=== PATIENT | male | born 1940 | race African-American/Black ===

== ENCOUNTER 2017-07-09 14:40 | Observation (INO) | payer MEDICARE ==
[~2017-07-09] VITALS: Ht 188 cm; Wt 101.2 kg
--- OUTSIDE RECORDS SUMMARY | 2017-07-09 14:43 | XMS REPORT ---
Author Author [facility] Address Unknown Phone Unavailable Care Team Providers Care Restaurant Team Member Name Role Phone OSBALDO NAM Unavailable Unavailable MARY BETHLUCI WILCOX Unavailable Unavailable Problems This patient has no known problems. Allergies, Adverse Reactions, Alerts This patient has no known allergies or adverse reactions. Medications This patient has no known medications. Results Test Description Test Time Test Comments Text Results Atomic Results Result Comments POCT-GLUCOSE METER 2017-04-27 16:40:00 POC-GLUCOSE METER (BEAKER) (test uuvv=8779) 208 mg/dL 70-110 TESTED AT [address] [address] POCT-GLUCOSE [id number] 13:04:00* Test Item Value Reference Range Comments POC-GLUCOSE METER (BEAKER) (test yllb=1262) 120 mg/dL 70-110 TESTED AT [address] [address] BASIC METABOLIC [id number] 11:31:00* Test Item Value Reference Range Comments SODIUM (BEAKER) (test yasp=455) 145 meq/L 136-145 POTASSIUM (BEAKER) (test jmor=400) 3.8 meq/L 3.5-5.1 CHLORIDE (BEAKER) (test gcrv=598) 116 meq/L 98-107 CO2 (BEAKER) (test tufp=446) 22 meq/L 22-29 BLOOD UREA NITROGEN (BEAKER) (test qlly=493) 45 mg/dL 7-21 CREATININE (BEAKER) (test yces=885) 1.54 mg/dL 0.57-1.25 GLUCOSE RANDOM (BEAKER) (test hrsi=285) 71 mg/dL 70-105 CALCIUM (BEAKER) (test twel=200) 8.4 mg/dL 8.4-10.2 EGFR (BEAKER) (test wyhq=8393) 53 mL/min/1.73 sq m ESTIMATED GFR IS NOT ACCURATE CREATININE CLEARANCE IN PREDICTING GLOMERULAR FILTRATION RATE. ESTIMATED GFR IS NOT APPLICABLE FOR DIALYSIS PATIENTS. RAD, CHEST, 1 VIEW, NON [id number] 10:19:00Reason for exam:->evaluate status of pleural effusionsShould this be performed at the bedside?->YesFINAL REPORT CHEST ONE VIEW HISTORY: Pleural effusions COMPARISON: 04/26/2017 FINDINGS: Single portable AP examination of the chest was performed. There is unchanged left lower lobe airspace consolidation, partial obscuring the left diaphragm, suggestive of atelectasis or pneumonia. A minimal left pleural effusion is suspected. No right pleural effusion. Right lung clear. No pneumothorax. The cardiac shadow is borderline enlarged, unchanged. Signed: Ian Lopes MDReport Verified Date/Time: 04/27/2017 10:19:00 Reading Location: [address] Ortho Consult Reading Room -GLUCOSE [id number] 09:09:00 * Test Item Value Reference Range Comments POC-GLUCOSE METER (BEAKER) (test njgt=0799) 250 mg/dL 70-110 TESTED AT [address] [address] POCT-GLUCOSE [id number] 08:30:00* Test Item Value Reference Range Comments POC-GLUCOSE METER (BEAKER) (test yigy=3327) 51 mg/dL 70-110 TESTED AT [address] [address] B-TYPE NATRIURETIC FACTOR (BNP)2017-04-27 07:08:00* Test Item Value Reference Range Comments B-TYPE NATRIURETIC PEPTIDE (BEAKER) (test hnkm=005) 200 pg/mL 0-100 CBC W/PLT COUNT & AUTO [id number] 06:51:00* Test Item Value Reference Range Comments WHITE BLOOD CELL COUNT (BEAKER) (test txaa=487) 7.1 K/ L 3.5-10.5 RED BLOOD CELL COUNT (BEAKER) (test nfmz=820) 2.77 M/ L 4.63-6.08 HEMOGLOBIN (BEAKER) (test pxzu=559) 9.0 GM/DL 13.7-17.5 HEMATOCRIT (BEAKER) (test jdvm=156) 27.5 % 40.1-51.0 MEAN CORPUSCULAR VOLUME (BEAKER) (test dkoj=853) 99.3 fL 79.0-92.2 MEAN CORPUSCULAR HEMOGLOBIN (BEAKER) (test mepy=213) 32.5 pg 25.7-32.2 MEAN CORPUSCULAR HEMOGLOBIN CONC (BEAKER) (test imzv=655) 32.7 GM/DL 32.3- 36.5 RED CELL DISTRIBUTION WIDTH (BEAKER) (test nmdt=470) 13.2 % 11.6-14.4 PLATELET COUNT (BEAKER) (test qycd=366) 202 K/CU MM 150-450 MEAN PLATELET VOLUME (BEAKER) (test zgts=103) 11.5 fL 9.4-12.4 NUCLEATED RED BLOOD CELLS (BEAKER) (test skmp=240) 0 /100 WBC 0-0 NEUTROPHILS RELATIVE PERCENT (BEAKER) (test bkam=151) 52 % LYMPHOCYTES RELATIVE PERCENT (BEAKER) (test gjki=758) 25 % MONOCYTES RELATIVE PERCENT (BEAKER) (test bohn=061) 21 % EOSINOPHILS RELATIVE PERCENT (BEAKER) (test nuxn=657) 1 % BASOPHILS RELATIVE PERCENT (BEAKER) (test xhzu=174) 0 % NEUTROPHILS ABSOLUTE COUNT (BEAKER) (test ntcb=200) 3.68 K/ L 1.78-5.38 LYMPHOCYTES ABSOLUTE COUNT (BEAKER) (test jxbg=381) 1.76 K/ L 1.32-3.57 MONOCYTES ABSOLUTE COUNT (BEAKER) (test vtme=208) 1.47 K/ L 0.30-0.82 EOSINOPHILS ABSOLUTE COUNT (BEAKER) (test emdd=575) 0.09 K/ L 0.04-0.54 BASOPHILS ABSOLUTE COUNT (BEAKER) (test sofo=691) 0.01 K/ L 0.01-0.08 IMMATURE GRANULOCYTES-RELATIVE PERCENT (BEAKER) (test xexa=5013) 1 % 0-1 POCT-GLUCOSE [id number] 20:47:00* Test Item Value Reference Range Comments POC-GLUCOSE METER (BEAKER) (test obly=7261) 155 mg/dL 70-110 TESTED AT [address] [address] POCT-GLUCOSE [id number] 17:16:00* Test Item Value Reference Range Comments POC-GLUCOSE METER (BEAKER) (test urvl=6749) 204 mg/dL 70-110 TESTED AT [address] [address] POCT-GLUCOSE [id number] 13:49:00* Test Item Value Reference Range Comments POC-GLUCOSE METER (BEAKER) (test uxjt=1043) 122 mg/dL 70-110 TESTED AT [facility] [address] [facility] [address] POCT-GLUCOSE [id number] 08:48:00* Test Item Value Reference Range Comments POC-GLUCOSE METER (BEAKER) (test mxbw=5388) 77 mg/dL 70-110 TESTED AT [place] [id number] [facility] [address] RAD, CHEST, 1 VIEW, NON [id number] 07:59:00Reason for exam:->chfFINAL REPORT Portable chest. MEDICAL HISTORY: CHF. COMPARISON STUDY: April 24, 2017. FINDINGS: The cardiac silhouette is enlarged. There is atelectasis or consolidation in the lung bases with blunting of the costophrenic angles. The remaining pulmonary parenchyma is clear. No pneumothorax is seen. Degenerative changes are noted. IMPRESSION: Findings most likely related to CHF, similar to previous. Signed: Jose De Jesus Pineda MDReport Verified Date/Time: 04/26/2017 07:59:00 Reading Location: [address] Body Reading Room [id number] 07:26:00* Test Item Value Reference Range Comments MAGNESIUM (BEAKER) (test sovw=419) 2.2 mg/dL 1.6-2.6 Specimen slightly hemolyzed BASIC METABOLIC [id number] 07:26:00* Test Item Value Reference Range Comments SODIUM (BEAKER) (test wsds=799) 142 meq/L 136-145 POTASSIUM (BEAKER) (test iknf=981) 4.0 meq/L 3.5-5.1 Specimen slightly hemolyzed CHLORIDE (BEAKER) (test ztbj=443) 116 meq/L 98-107 CO2 (BEAKER) (test azgu=429) 17 meq/L 22-29 BLOOD UREA NITROGEN (BEAKER) (test ubpv=024) 46 mg/dL 7-21 CREATININE (BEAKER) (test quva=916) 1.52 mg/dL 0.57-1.25 Specimen slightly hemolyzed GLUCOSE RANDOM (BEAKER) (test tcay=286) 112 mg/dL 70-105 CALCIUM (BEAKER) (test fqhc=006) 8.0 mg/dL 8.4-10.2 EGFR (BEAKER) (test qkeq=4291) 54 mL/min/1.73 sq m ESTIMATED GFR IS NOT ACCURATE CREATININE CLEARANCE IN PREDICTING GLOMERULAR FILTRATION RATE. ESTIMATED GFR IS NOT APPLICABLE FOR DIALYSIS PATIENTS. POCT-GLUCOSE [id number] 22:11:00* Test Item Value Reference Range Comments POC-GLUCOSE METER (BEAKER) (test ugzm=8149) 264 mg/dL 70-110 TESTED AT [address] [address] POCT-GLUCOSE [id number] 18:04:00* Test Item Value Reference Range Comments POC-GLUCOSE METER (BEAKER) (test ystj=3609) 317 mg/dL 70-110 TESTED AT [address] [address] POCT-GLUCOSE [id number] 17:11:00* Test Item Value Reference Range Comments POC-GLUCOSE METER (BEAKER) (test rbwo=9137) 303 mg/dL 70-110 TESTED AT [address] [address] POCT-GLUCOSE [id number] 12:27:00* Test Item Value Reference Range Comments POC-GLUCOSE METER (BEAKER) (test zlvv=9529) 106 mg/dL 70-110 TESTED AT [address] [address] POCT-GLUCOSE [id number] 08:04:00* Test Item Value Reference Range Comments POC-GLUCOSE METER (BEAKER) (test mduu=4982) 54 mg/dL 70-110 TESTED AT [address] [address] [id number] 06:51:00* Test Item Value Reference Range Comments MAGNESIUM (BEAKER) (test fqsq=550) 2.4 mg/dL 1.6-2.6 BASIC METABOLIC [id number] 06:51:00* Test Item Value Reference Range Comments SODIUM (BEAKER) (test eudz=134) 141 meq/L 136-145 POTASSIUM (BEAKER) (test bsbv=044) 3.9 meq/L 3.5-5.1 CHLORIDE (BEAKER) (test xzxc=760) 115 meq/L 98-107 CO2 (BEAKER) (test afhz=323) 17 meq/L 22-29 BLOOD UREA NITROGEN (BEAKER) (test jmvq=293) 50 mg/dL 7-21 CREATININE (BEAKER) (test mycp=141) 1.48 mg/dL 0.57-1.25 GLUCOSE RANDOM (BEAKER) (test ascz=806) 99 mg/dL 70-105 CALCIUM (BEAKER) (test rvbt=372) 8.0 mg/dL 8.4-10.2 EGFR (BEAKER) (test jzda=4890) 56 mL/min/1.73 sq m ESTIMATED GFR IS NOT ACCURATE CREATININE CLEARANCE IN PREDICTING GLOMERULAR FILTRATION RATE. ESTIMATED GFR IS NOT APPLICABLE FOR DIALYSIS PATIENTS. POCT-GLUCOSE [id number] 23:14:00* Test Item Value Reference Range Comments POC-GLUCOSE METER (BEAKER) (test suym=8967) 295 mg/dL 70-110 TESTED AT [address] [address] POCT-GLUCOSE [id number] 18:38:00* Test Item Value Reference Range Comments POC-GLUCOSE METER (BEAKER) (test qylf=4543) 284 mg/dL 70-110 TESTED AT [place] [id number] [facility] [address] POCT-GLUCOSE [id number] 17:22:00* Test Item Value Reference Range Comments POC-GLUCOSE METER (BEAKER) (test ogmv=0405) 309 mg/dL 70-110 TESTED AT [place] [id number] [facility] [address] POCT-GLUCOSE [id number] 12:20:00* Test Item Value Reference Range Comments POC-GLUCOSE METER (BEAKER) (test rixo=9832) 119 mg/dL 70-110 TESTED AT [address] [address] POCT-GLUCOSE [id number] 12:20:00* Test Item Value Reference Range Comments POC-GLUCOSE METER (BEAKER) (test wgjs=8511) 108 mg/dL 70-110 TESTED AT [address] [address] RAD, CHEST, 1 VIEW, NON [id number] 08:48:00Reason for exam:->pna, chfFINAL REPORT Chest one view compared to April 21, 2017 Discussion: There is bilateral interstitial prominence with hazy opacities obscuring the left hemidiaphragm unchanged. Hazy opacity now partially obscures the right hemidiaphragm as well, a new finding. Atelectasis is probable but pneumonia could have this appearance. No effusion or pneumothorax. IMPRESSIONS: Overall chest appearance is similar but new hazy opacity is present partially obscuring right hemidiaphragm. Signed: Daniel Alejo Verified Date/Time : 04/24/2017 08:48:06 Reading Location: [facility] Radiology Reading Room - GLUCOSE [id number] 08:34:00* Test Item Value Reference Range Comments POC-GLUCOSE METER (BEAKER) (test oyko=9067) 52 mg/dL 70-110 TESTED AT [facility] [address] [facility] [address] [id number] 06:03:00* Test Item Value Reference Range Comments MAGNESIUM (BEAKER) (test jjlp=145) 2.5 mg/dL 1.6-2.6 BASIC METABOLIC [id number] 06:03:00* Test Item Value Reference Range Comments SODIUM (BEAKER) (test yrqn=712) 145 meq/L 136-145 POTASSIUM (BEAKER) (test weaf=544) 3.6 meq/L 3.5-5.1 CHLORIDE (BEAKER) (test kogq=723) 117 meq/L 98-107 CO2 (BEAKER) (test dpub=586) 21 meq/L 22-29 BLOOD UREA NITROGEN (BEAKER) (test dttm=373) 50 mg/dL 7-21 CREATININE (BEAKER) (test upgp=412) 1.59 mg/dL 0.57-1.25 GLUCOSE RANDOM (BEAKER) (test crqz=545) 85 mg/dL 70-105 CALCIUM (BEAKER) (test mvkc=591) 8.4 mg/dL 8.4-10.2 EGFR (BEAKER) (test qepy=1678) 52 mL/min/1.73 sq m ESTIMATED GFR IS NOT ACCURATE CREATININE CLEARANCE IN PREDICTING GLOMERULAR FILTRATION RATE. ESTIMATED GFR IS NOT APPLICABLE FOR DIALYSIS PATIENTS. CBC (HEMOGRAM ONLY)2017-04-24 05:28:00* Test Item Value Reference Range Comments WHITE BLOOD CELL COUNT (BEAKER) (test ajwi=116) 6.8 K/ L 3.5-10.5 RED BLOOD CELL COUNT (BEAKER) (test awmq=941) 2.96 M/ L 4.63-6.08 HEMOGLOBIN (BEAKER) (test tfqc=010) 9.5 GM/DL 13.7-17.5 HEMATOCRIT (BEAKER) (test bypx=441) 29.3 % 40.1-51.0 MEAN CORPUSCULAR VOLUME (BEAKER) (test pqcj=659) 99.0 fL 79.0-92.2 MEAN CORPUSCULAR HEMOGLOBIN (BEAKER) (test tzjq=937) 32.1 pg 25.7-32.2 MEAN CORPUSCULAR HEMOGLOBIN CONC (BEAKER) (test mjpv=347) 32.4 GM/DL 32.3- 36.5 RED CELL DISTRIBUTION WIDTH (BEAKER) (test irgu=286) 12.8 % 11.6-14.4 PLATELET COUNT (BEAKER) (test sjgj=761) 182 K/CU MM 150-450 MEAN PLATELET VOLUME (BEAKER) (test ncmn=807) 11.5 fL 9.4-12.4 NUCLEATED RED BLOOD CELLS (BEAKER) (test yxor=611) 0 /100 WBC 0-0 BLOOD [id number] 23:00:00* Test Item Value Reference Range Comments CULTURE (BEAKER) (test gjit=7867) No growth in 5 days BLOOD [id number] 23:00:00* Test Item Value Reference Range Comments CULTURE (BEAKER) (test ptxc=6823) No growth in 5 days POCT-GLUCOSE [id number] 22:45:00* Test Item Value Reference Range Comments POC-GLUCOSE METER (BEAKER) (test enwz=2165) 208 mg/dL 70-110 TESTED AT [facility] [address] [facility] [address] POCT-GLUCOSE [id number] 17:36:00* Test Item Value Reference Range Comments POC-GLUCOSE METER (BEAKER) (test lgvt=4427) 252 mg/dL 70-110 TESTED AT [facility] [address] [facility] [address] POCT-GLUCOSE [id number] 13:35:00* Test Item Value Reference Range Comments POC-GLUCOSE METER (BEAKER) (test rgti=5337) 143 mg/dL 70-110 TESTED AT [facility] [address] [facility] [address] HEMOGLOBIN [id number] 13:03:00* Test Item Value Reference Range Comments HEMOGLOBIN A1C (BEAKER) (test kxtx=935) 5.9 % 4.3-6.1 SPUTUM CULTURE + GRAM [id number] 08:24:00* Test Item Value Reference Range Comments CULTURE (BEAKER) (test qeqt=3283) 2+ Normal respiratory madyson present GRAM STAIN RESULT (BEAKER) (test ijnn=4752) 2+ White blood cells seen GRAM STAIN RESULT (BEAKER) (test tyfs=88252) 10-15 epithelial cells GRAM STAIN RESULT (BEAKER) (test vtnf=09839) 1+ gram negative rods POCT-GLUCOSE [id number] 08:14:00* Test Item Value Reference Range Comments POC-GLUCOSE METER (BEAKER) (test aumb=0973) 170 mg/dL 70-110 TESTED AT [address] [address] B-TYPE NATRIURETIC FACTOR (BNP)2017-04-23 07:18:00* Test Item Value Reference Range Comments B-TYPE NATRIURETIC PEPTIDE (BEAKER) (test gmhh=814) 587 pg/mL 0-100 CBC (HEMOGRAM ONLY)2017-04-23 07:14:00* Test Item Value Reference Range Comments WHITE BLOOD CELL COUNT (BEAKER) (test uimj=066) 5.1 K/ L 3.5-10.5 RED BLOOD CELL COUNT (BEAKER) (test cqux=993) 3.11 M/ L 4.63-6.08 HEMOGLOBIN (BEAKER) (test msny=273) 10.0 GM/DL 13.7-17.5 HEMATOCRIT (BEAKER) (test ospp=130) 30.9 % 40.1-51.0 MEAN CORPUSCULAR VOLUME (BEAKER) (test mlsm=656) 99.4 fL 79.0-92.2 MEAN CORPUSCULAR HEMOGLOBIN (BEAKER) (test rtmq=373) 32.2 pg 25.7-32.2 MEAN CORPUSCULAR HEMOGLOBIN CONC (BEAKER) (test yofa=208) 32.4 GM/DL 32.3- 36.5 RED CELL DISTRIBUTION WIDTH (BEAKER) (test uumg=031) 12.9 % 11.6-14.4 PLATELET COUNT (BEAKER) (test kjvn=771) 192 K/CU MM 150-450 MEAN PLATELET VOLUME (BEAKER) (test fovm=138) 12.0 fL 9.4-12.4 NUCLEATED RED BLOOD CELLS (BEAKER) (test lndq=959) 1 /100 WBC 0-0 TSH/FREE T4 IF [id number] 05:20:00* Test Item Value Reference Range Comments THYROID STIMULATING HORMONE (BEAKER) (test ywvi=936) 0.70 uIU/mL 0.35-4.94 [id number] 04:42:00* Test Item Value Reference Range Comments PHOSPHORUS (BEAKER) (test egqn=785) 3.1 mg/dL 2.3-4.7 [id number] 04:42:00* Test Item Value Reference Range Comments MAGNESIUM (BEAKER) (test wmdy=300) 2.6 mg/dL 1.6-2.6 BASIC METABOLIC [id number] 04:42:00* Test Item Value Reference Range Comments SODIUM (BEAKER) (test uxgw=743) 138 meq/L 136-145 POTASSIUM (BEAKER) (test oizf=360) 4.4 meq/L 3.5-5.1 CHLORIDE (BEAKER) (test nncp=146) 113 meq/L 98-107 CO2 (BEAKER) (test kbvw=018) 19 meq/L 22-29 BLOOD UREA NITROGEN (BEAKER) (test vnjt=320) 53 mg/dL 7-21 CREATININE (BEAKER) (test cazl=718) 1.51 mg/dL 0.57-1.25 GLUCOSE RANDOM (BEAKER) (test ianx=185) 258 mg/dL 70-105 CALCIUM (BEAKER) (test inpz=192) 8.1 mg/dL 8.4-10.2 EGFR (BEAKER) (test hedf=2631) 55 mL/min/1.73 sq m ESTIMATED GFR IS NOT ACCURATE CREATININE CLEARANCE IN PREDICTING GLOMERULAR FILTRATION RATE. ESTIMATED GFR IS NOT APPLICABLE FOR DIALYSIS PATIENTS. LIPID [id number] 04:42:00* Test Item Value Reference Range Comments TRIGLYCERIDES (BEAKER) (test dndo=185) 179 mg/dL CHOLESTEROL (BEAKER) (test zhwh=197) 140 mg/dL HDL CHOLESTEROL (BEAKER) (test gnbs=047) 30 mg/dL LDL CHOLESTEROL CALCULATED (BEAKER) (test xwkh=027) 74 mg/dL Triglyceride Reference Range: Low Risk <150 Borderline 150-199 High Risk 200-499 Very High Risk >=500Cholesterol Reference Range: Low Risk <200 Borderline 200-239 High Risk >240HDL Cholesterol Reference Range: Low Risk >=60 High Risk <40LDL Cholesterol Reference Range: Optimal <100 Near Optimal 100-129 Borderline 130-159 High 160-189 Very High >=190 HEPATIC FUNCTION [id number] 04:42:00* Test Item Value Reference Range Comments TOTAL PROTEIN (BEAKER) (test nmgn=333) 6.1 gm/dL 6.0-8.3 ALBUMIN (BEAKER) (test xhyz=5755) 2.7 g/dL 3.5-5.0 BILIRUBIN TOTAL (BEAKER) (test jvxm=230) 0.6 mg/dL 0.2-1.2 BILIRUBIN DIRECT (BEAKER) (test gikx=557) 0.2 mg/dL 0.1-0.5 ALKALINE PHOSPHATASE (BEAKER) (test ropm=311) 53 U/L 40-150 AST (SGOT) (BEAKER) (test nbis=616) 18 U/L 5-34 ALT (SGPT) (BEAKER) (test gaav=516) 29 U/L 6-55 STREP PNEUMONIAE [id number] 22:10:00* Test Item Value Reference Range Comments STREP PNEUMONIAE ANTIGEN (BEAKER) (test pwgc=5820) Presumptive negative for pneumococcal pneumonia - see comment Presumptive negative for pneumococcal pneumonia - see commen Presumptive negative for pneumococcal pneumonia, suggesting no current or recent pneumococcal infection. Infection due to S. pneumoniae cannot be ruled out since the antigen present in the sample may be below the detection limit of the test.LEGIONELLA ANTIGEN, [id number] 22:09:00* Test Item Value Reference Range Comments L. PNEUMOPHILA SEROGP 1 UR AG (BEAKER) (test ubis=7284) Negative - see comment Negative for L. pneumophila serogroup 1 antigen, suggesting no recent or current infection with this serogroup. Legionellosis cannot be ruled out since other serogroups and species may cause disease. POCT-GLUCOSE [id number] 20:41:00* Test Item Value Reference Range Comments POC-GLUCOSE METER (BEAKER) (test rehe=1202) 142 mg/dL 70-110 TESTED AT [facility] [address] [facility] [address] POCT-GLUCOSE [id number] 16:26:00* Test Item Value Reference Range Comments POC-GLUCOSE METER (BEAKER) (test nbqz=8231) 194 mg/dL 70-110 TESTED AT [address] [address] CLOSTRIDIUM DIFFICILE TOXIN [id number] 15:13:00* Test Item Value Reference Range Comments CLOSTRIDIUM DIFFICILE TOXIN, PCR (BEAKER) (test nexu=4614) Detected Not Detected This qualitative real-time polymerase chain reaction assay detects the tcdB gene , encoded on the C.difficile pathogenicity locus (PaLoc). The product of tcdB, toxin B, is a cytotoxin essential for causing C.difficile-associated disease ( CDAD) and is found in virtually all toxigenic C.difficile.This assay is performed for patients suspected of having either community-acquired or nosocomial CDAD. Accordingly, only symptomatic patients should be tested and formed stools will be rejected unless ileus is present (i.e., specified when ordering). Patients may be colonized with toxigenic C.difficile strains not causing active disease; therefore, clinical correlation is needed when deciding how to manage patients with a positive test result.The assay has not been validated as a test of cure as amplifiable nucleic acid may persist after effective treatment; therefore, follow-up testing of a positive result is not recommended.OCCULT BLOOD, [id number] 14:23:00* Test Item Value Reference Range Comments FECAL OCCULT BLOOD (BEAKER) (test qbso=670) Positive Negative POCT-GLUCOSE [id number] 12:27:00* Test Item Value Reference Range Comments POC-GLUCOSE METER (BEAKER) (test iqca=7417) 213 mg/dL 70-110 TESTED AT [address] [address] [id number] 11:40:00* Test Item Value Reference Range Comments MAGNESIUM (BEAKER) (test vled=892) 2.7 mg/dL 1.6-2.6 BASIC METABOLIC [id number] 11:40:00* Test Item Value Reference Range Comments SODIUM (BEAKER) (test atbb=681) 141 meq/L 136-145 POTASSIUM (BEAKER) (test uhzz=199) 4.0 meq/L 3.5-5.1 CHLORIDE (BEAKER) (test voqo=305) 114 meq/L 98-107 CO2 (BEAKER) (test uwwq=719) 18 meq/L 22-29 BLOOD UREA NITROGEN (BEAKER) (test jpdv=626) 61 mg/dL 7-21 CREATININE (BEAKER) (test mppj=566) 1.62 mg/dL 0.57-1.25 GLUCOSE RANDOM (BEAKER) (test oxxr=804) 228 mg/dL 70-105 CALCIUM (BEAKER) (test eauh=484) 8.4 mg/dL 8.4-10.2 EGFR (BEAKER) (test qihq=1308) 50 mL/min/1.73 sq m ESTIMATED GFR IS NOT ACCURATE CREATININE CLEARANCE IN PREDICTING GLOMERULAR FILTRATION RATE. ESTIMATED GFR IS NOT APPLICABLE FOR DIALYSIS PATIENTS. POCT-GLUCOSE [id number] 07:52:00* Test Item Value Reference Range Comments POC-GLUCOSE METER (BEAKER) (test fktf=6869) 140 mg/dL 70-110 TESTED AT [facility] [address] [facility] [address] CBC (HEMOGRAM ONLY)2017-04-22 05:12:00* Test Item Value Reference Range Comments WHITE BLOOD CELL COUNT (BEAKER) (test amoe=344) 6.5 K/ L 3.5-10.5 RED BLOOD CELL COUNT (BEAKER) (test gqmm=213) 3.01 M/ L 4.63-6.08 HEMOGLOBIN (BEAKER) (test ybyi=626) 9.9 GM/DL 13.7-17.5 HEMATOCRIT (BEAKER) (test sxqm=941) 33.7 % 40.1-51.0 MEAN CORPUSCULAR VOLUME (BEAKER) (test mifr=620) 112.0 fL 79.0-92.2 MEAN CORPUSCULAR HEMOGLOBIN (BEAKER) (test xwpp=448) 32.9 pg 25.7-32.2 MEAN CORPUSCULAR HEMOGLOBIN CONC (BEAKER) (test aeth=256) 29.4 GM/DL 32.3- 36.5 RED CELL DISTRIBUTION WIDTH (BEAKER) (test ctdw=051) 13.5 % 11.6-14.4 PLATELET COUNT (BEAKER) (test rkkb=484) 148 K/CU MM 150-450 MEAN PLATELET VOLUME (BEAKER) (test vkor=961) 11.3 fL 9.4-12.4 NUCLEATED RED BLOOD CELLS (BEAKER) (test peli=613) 1 /100 WBC 0-0 POCT-GLUCOSE [id number] 22:21:00* Test Item Value Reference Range Comments POC-GLUCOSE METER (BEAKER) (test hpuo=3704) 90 mg/dL 70-110 TESTED AT [address] [address] POCT-GLUCOSE [id number] 16:01:00* Test Item Value Reference Range Comments POC-GLUCOSE METER (BEAKER) (test ejje=2578) 237 mg/dL 70-110 TESTED AT [place] [id number] POCT-GLUCOSE [id number] 13:39:00* Test Item Value Reference Range Comments POC-GLUCOSE METER (BEAKER) (test aqnv=4131) 237 mg/dL 70-110 TESTED AT [address] [address] URINE [id number] 12:46:00* Test Item Value Reference Range Comments CULTURE (BEAKER) (test rhkw=1629) No growth CT, CHEST, WITHOUT [id number] 10:06:00FINAL REPORT TECHNIQUE: CT scan of the chest WITHOUT intravenous contrast. Dose modulation, iterative reconstruction, and/or weight-based adjustment of the mA/ kV was utilized to reduce the radiation dose to as low as reasonably achievable. INDICATION: 76-year-old man with lung infiltrates. COMPARISON: Chest radiograph from earlier same date. FINDINGS: ABSENCE OF INTRAVENOUS CONTRAST DECREASES SENSITIVITY FOR DETECTION OF FOCAL LESIONS AND VASCULAR PATHOLOGY. LINES/TUBES: None. LUNGS AND AIRWAYS: Patchy consolidative opacities in both upper lobes. Scattered consolidations opacities in both upper lobes. Mild bilateral groundglass opacities. 4 mm nodule in the left upper lobe (axial lung window series image 22). 5 mm nodule in the right lower lobe (axial lung window series image 39). Relaxation atelectasis in both lower lobes adjacent to the pleural effusions. PLEURA: Bilateral small-moderate pleural effusions. HEART AND MEDIASTINUM: The visualized thyroid gland is normal. No significant mediastinal, hilar, or axillary lymphadenopathy. Few calcified mediastinal lymph nodes. The heart is within normal limits in size. Trace pericardial fluid. Atherosclerotic calcifications in the thoracic aorta and coronary arteries. SOFT TISSUES AND BONES: Degenerative changes of the visualized spine. UPPER ABDOMEN: Possible gallstones in the partially visualized gallbladder. Otherwise, unremarkable. IMPRESSION:Consolidative opacities in both upper lobes , likely multifocal pneumonia. Bilateral groundglass opacities may relate to the same process as above or may represent mild pulmonary edema. Bilateral small -moderate pleural effusions. 4 mm and 5 mm pulmonary nodules. Signed: Keiry Martinezort Verified Date/Time: 04/21/2017 10:06:22 Reading Location: [facility] C013Y CT Body Reading Room , CHEST, 1 VIEW, NON [id number] 07:32: 00Reason for exam:->lungopacitiesFINAL REPORT Chest one view compared to April 20 Discussion: Bilateral ill-defined lung opacities are similar. I cannot exclude very small left effusion. No pneumothorax. Heart size normal. IMPRESSIONS: No change Signed: Daniel Alejo Verified Date/ Time: 04/21/2017 07:32:46 Reading Location: [address] Reading Room W/PLT COUNT & AUTO [id number] 06:16:00* Test Item Value Reference Range Comments WHITE BLOOD CELL COUNT (BEAKER) (test yhwi=952) 5.9 K/ L 3.5-10.5 RED BLOOD CELL COUNT (BEAKER) (test bhfo=901) 2.98 M/ L 4.63-6.08 HEMOGLOBIN (BEAKER) (test eioz=726) 9.8 GM/DL 13.7-17.5 HEMATOCRIT (BEAKER) (test gtfu=925) 31.0 % 40.1-51.0 MEAN CORPUSCULAR VOLUME (BEAKER) (test slct=543) 104.0 fL 79.0-92.2 MEAN CORPUSCULAR HEMOGLOBIN (BEAKER) (test gwyo=439) 32.9 pg 25.7-32.2 MEAN CORPUSCULAR HEMOGLOBIN CONC (BEAKER) (test trkv=126) 31.6 GM/DL 32.3- 36.5 RED CELL DISTRIBUTION WIDTH (BEAKER) (test fhqg=565) 13.4 % 11.6-14.4 PLATELET COUNT (BEAKER) (test ufed=622) 167 K/CU MM 150-450 MEAN PLATELET VOLUME (BEAKER) (test ydww=779) 11.3 fL 9.4-12.4 NUCLEATED RED BLOOD CELLS (BEAKER) (test vfjs=996) 1 /100 WBC 0-0 NEUTROPHILS RELATIVE PERCENT (BEAKER) (test bjzo=548) 77 % LYMPHOCYTES RELATIVE PERCENT (BEAKER) (test nuwt=721) 13 % MONOCYTES RELATIVE PERCENT (BEAKER) (test rfhd=874) 10 % EOSINOPHILS RELATIVE PERCENT (BEAKER) (test vcca=326) 0 % BASOPHILS RELATIVE PERCENT (BEAKER) (test xwwn=594) 0 % NEUTROPHILS ABSOLUTE COUNT (BEAKER) (test bufm=081) 4.58 K/ L 1.78-5.38 LYMPHOCYTES ABSOLUTE COUNT (BEAKER) (test ehrh=684) 0.74 K/ L 1.32-3.57 MONOCYTES ABSOLUTE COUNT (BEAKER) (test sarx=266) 0.57 K/ L 0.30-0.82 EOSINOPHILS ABSOLUTE COUNT (BEAKER) (test sqjr=542) 0.00 K/ L 0.04-0.54 BASOPHILS ABSOLUTE COUNT (BEAKER) (test blza=610) 0.00 K/ L 0.01-0.08 IMMATURE GRANULOCYTES-RELATIVE PERCENT (BEAKER) (test yymi=2376) 1 % 0-1 CBC (HEMOGRAM ONLY)2017-04-21 06:11:00* Test Item Value Reference Range Comments WHITE BLOOD CELL COUNT (BEAKER) (test ufbb=632) 5.9 K/ L 3.5-10.5 RED BLOOD CELL COUNT (BEAKER) (test oiwt=704) 2.98 M/ L 4.63-6.08 HEMOGLOBIN (BEAKER) (test meuo=739) 9.8 GM/DL 13.7-17.5 HEMATOCRIT (BEAKER) (test vkra=382) 31.0 % 40.1-51.0 MEAN CORPUSCULAR VOLUME (BEAKER) (test kykk=752) 104.0 fL 79.0-92.2 MEAN CORPUSCULAR HEMOGLOBIN (BEAKER) (test rqom=087) 32.9 pg 25.7-32.2 MEAN CORPUSCULAR HEMOGLOBIN CONC (BEAKER) (test pslz=429) 31.6 GM/DL 32.3- 36.5 RED CELL DISTRIBUTION WIDTH (BEAKER) (test quai=131) 13.4 % 11.6-14.4 PLATELET COUNT (BEAKER) (test gcdm=393) 167 K/CU MM 150-450 MEAN PLATELET VOLUME (BEAKER) (test glvt=504) 11.3 fL 9.4-12.4 NUCLEATED RED BLOOD CELLS (BEAKER) (test gyuj=095) 1 /100 WBC 0-0 BASIC METABOLIC [id number] 05:42:00* Test Item Value Reference Range Comments SODIUM (BEAKER) (test velw=786) 140 meq/L 136-145 POTASSIUM (BEAKER) (test xbhd=024) 4.6 meq/L 3.5-5.1 Specimen slightly hemolyzed CHLORIDE (BEAKER) (test ufvk=361) 114 meq/L 98-107 CO2 (BEAKER) (test hmxe=471) 17 meq/L 22-29 BLOOD UREA NITROGEN (BEAKER) (test hyue=945) 57 mg/dL 7-21 CREATININE (BEAKER) (test debh=237) 1.63 mg/dL 0.57-1.25 Specimen slightly hemolyzed GLUCOSE RANDOM (BEAKER) (test hfjs=410) 229 mg/dL 70-105 CALCIUM (BEAKER) (test pyod=357) 8.3 mg/dL 8.4-10.2 EGFR (BEAKER) (test xpzw=8609) 50 mL/min/1.73 sq m ESTIMATED GFR IS NOT ACCURATE CREATININE CLEARANCE IN PREDICTING GLOMERULAR FILTRATION RATE. ESTIMATED GFR IS NOT APPLICABLE FOR DIALYSIS PATIENTS. SPUTUM CULTURE + GRAM [id number] 00:15:00* Test Item Value Reference Range Comments CULTURE (BEAKER) (test qwiw=6627) Oropharyngeal contamination, specimen rejected. Recollect requested. GRAM STAIN RESULT (BEAKER) (test akdy=7404) 3+ WBCs GRAM STAIN RESULT (BEAKER) (test ttap=93985) >25 epithelial cells GRAM STAIN RESULT (BEAKER) (test zuho=76578) 1+ gram negative rods GRAM STAIN RESULT (BEAKER) (test ftjv=126139) 3+ gram positive cocci in clusters GRAM STAIN RESULT (BEAKER) (test jwbe=386246) 1+ gram positive cocci in chains GRAM STAIN RESULT (BEAKER) (test vqez=688319) 2+ gram variable rods POCT-GLUCOSE [id number] 21:54:00* Test Item Value Reference Range Comments POC-GLUCOSE METER (BEAKER) (test xfxd=5405) 210 mg/dL 70-110 TESTED AT [place] [address] VANCOMYCIN LEVEL, [id number] 17:52:00* Test Item Value Reference Range Comments VANCOMYCIN TROUGH (BEAKER) (test wfzb=807) 11.8 ug/mL 10.0-20.0 Draw trough level prior to dose administration.POCT-GLUCOSE [id number] 17: 23:00* Test Item Value Reference Range Comments POC-GLUCOSE METER (BEAKER) (test kvcs=2601) 199 mg/dL 70-110 TESTED AT [place] [id number] SPUTUM CULTURE + GRAM [id number] 13:50:00* Test Item Value Reference Range Comments CULTURE (BEAKER) (test qion=8740) 4+ Normal respiratory madyson present GRAM STAIN RESULT (BEAKER) (test foua=7425) 4+ WBCs GRAM STAIN RESULT (BEAKER) (test eeqh=94044) 10-15 epithelial cells GRAM STAIN RESULT (BEAKER) (test okew=68424) 4+ gram negative rods GRAM STAIN RESULT (BEAKER) (test pjeh=768052) 2+ gram positive rods GRAM STAIN RESULT (BEAKER) (test cntn=717621) 4+ gram positive cocci in chains and pairs POCT-GLUCOSE [id number] 13:21:00* Test Item Value Reference Range Comments POC-GLUCOSE METER (BEAKER) (test yhwu=1595) 253 mg/dL 70-110 TESTED AT [place] [id number] TROPONIN [id number] 09:54:00* Test Item Value Reference Range Comments TROPONIN I (BEAKER) (test vboz=679) 3.04 ng/mL 0.00-0.03 Troponin I (TnI) levels must be interpreted in the context of the presenting symptoms and the clinical findings. Elevated TnI levels indicate myocardial damage, but are not specific for ischemic heart disease. Elevated TnI levels are seen in patients with other cardiac conditions (including myocarditis and congestive heart failure), and slight TnI elevations occur in patients with other conditions, including sepsis, renal failure, acidosis, acute neurological disease, and persistent tachyarrhythmia.CREATINE KINASE (CK), TOTAL AND [id number] 09:45:00* Test Item Value Reference Range Comments CREATINE KINASE TOTAL (BEAKER) (test ppwz=403) 366 U/L 29-200 CREATINE KINASE-MB (BEAKER) (test taiy=042) 5.6 ng/mL 0.0-6.6 CREATINE KINASE-MB INDEX (BEAKER) (test bdze=988) 1.5 % CK-MB Reference Range:<6.7 Normal6.7-10.0 Borderline>10.0 [id number] 09:38:00* Test Item Value Reference Range Comments MAGNESIUM (BEAKER) (test jkbp=190) 2.3 mg/dL 1.6-2.6 BASIC METABOLIC [id number] 09:38:00* Test Item Value Reference Range Comments SODIUM (BEAKER) (test qros=552) 143 meq/L 136-145 POTASSIUM (BEAKER) (test izwf=737) 3.9 meq/L 3.5-5.1 CHLORIDE (BEAKER) (test njmj=770) 115 meq/L 98-107 CO2 (BEAKER) (test wgnr=571) 20 meq/L 22-29 BLOOD UREA NITROGEN (BEAKER) (test zoby=285) 49 mg/dL 7-21 CREATININE (BEAKER) (test alin=259) 1.77 mg/dL 0.57-1.25 GLUCOSE RANDOM (BEAKER) (test nycn=543) 135 mg/dL 70-105 CALCIUM (BEAKER) (test xhep=843) 8.3 mg/dL 8.4-10.2 EGFR (BEAKER) (test hobt=7318) 46 mL/min/1.73 sq m ESTIMATED GFR IS NOT ACCURATE CREATININE CLEARANCE IN PREDICTING GLOMERULAR FILTRATION RATE. ESTIMATED GFR IS NOT APPLICABLE FOR DIALYSIS PATIENTS. RAD, CHEST, 1 VIEW, NON [id number] 08:21:00Reason for exam:->lung infiltratesShould this be performed at the bedside?->YesFINAL REPORT Two frontal chest images compared to April 19, 2017 Discussion: Bilateral pulmonary opacities is similar. No effusion or pneumothorax. Signed: Daniel Alejo Verified Date/Time: 04/20/2017 08:21:48 Reading Location : [address] Neuro Reading Room W/PLT COUNT & AUTO [id number] 07:40: 00* Test Item Value Reference Range Comments WHITE BLOOD CELL COUNT (BEAKER) (test keyd=442) 6.8 K/ L 3.5-10.5 RED BLOOD CELL COUNT (BEAKER) (test ckos=669) 3.10 M/ L 4.63-6.08 HEMOGLOBIN (BEAKER) (test nyrd=189) 10.1 GM/DL 13.7-17.5 HEMATOCRIT (BEAKER) (test kubt=109) 32.4 % 40.1-51.0 MEAN CORPUSCULAR VOLUME (BEAKER) (test zisz=704) 104.5 fL 79.0-92.2 MEAN CORPUSCULAR HEMOGLOBIN (BEAKER) (test vsoe=318) 32.6 pg 25.7-32.2 MEAN CORPUSCULAR HEMOGLOBIN CONC (BEAKER) (test hrpa=555) 31.2 GM/DL 32.3- 36.5 RED CELL DISTRIBUTION WIDTH (BEAKER) (test wzqj=118) 13.6 % 11.6-14.4 PLATELET COUNT (BEAKER) (test qxgv=209) 168 K/CU MM 150-450 MEAN PLATELET VOLUME (BEAKER) (test knjr=241) 11.8 fL 9.4-12.4 NUCLEATED RED BLOOD CELLS (BEAKER) (test fiwi=056) 0 /100 WBC 0-0 NEUTROPHILS RELATIVE PERCENT (BEAKER) (test yeax=842) 64 % LYMPHOCYTES RELATIVE PERCENT (BEAKER) (test imqg=594) 18 % MONOCYTES RELATIVE PERCENT (BEAKER) (test kcap=345) 17 % EOSINOPHILS RELATIVE PERCENT (BEAKER) (test mhqc=904) 0 % BASOPHILS RELATIVE PERCENT (BEAKER) (test pgnm=912) 0 % NEUTROPHILS ABSOLUTE COUNT (BEAKER) (test uivi=920) 4.38 K/ L 1.78-5.38 LYMPHOCYTES ABSOLUTE COUNT (BEAKER) (test iqfc=874) 1.20 K/ L 1.32-3.57 MONOCYTES ABSOLUTE COUNT (BEAKER) (test pkop=330) 1.17 K/ L 0.30-0.82 EOSINOPHILS ABSOLUTE COUNT (BEAKER) (test lorp=481) 0.02 K/ L 0.04-0.54 BASOPHILS ABSOLUTE COUNT (BEAKER) (test kerq=927) 0.01 K/ L 0.01-0.08 IMMATURE GRANULOCYTES-RELATIVE PERCENT (BEAKER) (test fifn=5813) 0 % 0-1 CBC (HEMOGRAM ONLY)2017-04-20 06:46:00* Test Item Value Reference Range Comments WHITE BLOOD CELL COUNT (BEAKER) (test tebs=830) 6.8 K/ L 3.5-10.5 RED BLOOD CELL COUNT (BEAKER) (test wahz=691) 3.10 M/ L 4.63-6.08 HEMOGLOBIN (BEAKER) (test qmvw=993) 10.1 GM/DL 13.7-17.5 HEMATOCRIT (BEAKER) (test yive=559) 32.4 % 40.1-51.0 MEAN CORPUSCULAR VOLUME (BEAKER) (test zzru=502) 104.5 fL 79.0-92.2 MEAN CORPUSCULAR HEMOGLOBIN (BEAKER) (test vpfn=072) 32.6 pg 25.7-32.2 MEAN CORPUSCULAR HEMOGLOBIN CONC (BEAKER) (test vwav=852) 31.2 GM/DL 32.3- 36.5 RED CELL DISTRIBUTION WIDTH (BEAKER) (test ekeh=916) 13.6 % 11.6-14.4 PLATELET COUNT (BEAKER) (test xcnp=796) 168 K/CU MM 150-450 MEAN PLATELET VOLUME (BEAKER) (test dbkr=842) 11.8 fL 9.4-12.4 NUCLEATED RED BLOOD CELLS (BEAKER) (test zfpl=342) 0 /100 WBC 0-0 CALCIUM, [id number] 06:22:00* Test Item Value Reference Range Comments CALCIUM IONIZED (BEAKER) (test afci=980) 1.10 mmol/L 1.12-1.27 PH, BLOOD (BEAKER) (test woed=5777) 7.44 POCT-GLUCOSE [id number] 06:00:00* Test Item Value Reference Range Comments POC-GLUCOSE METER (BEAKER) (test kkzj=4778) 133 mg/dL 70-110 TESTED AT [address] [address] TROPONIN [id number] 01:11:00* Test Item Value Reference Range Comments TROPONIN I (BEAKER) (test ctcy=003) 4.07 ng/mL 0.00-0.03 Troponin I (TnI) levels must be interpreted in the context of the presenting symptoms and the clinical findings. Elevated TnI levels indicate myocardial damage, but are not specific for ischemic heart disease. Elevated TnI levels are seen in patients with other cardiac conditions (including myocarditis and congestive heart failure), and slight TnI elevations occur in patients with other conditions, including sepsis, renal failure, acidosis, acute neurological disease, and persistent tachyarrhythmia.CREATINE KINASE (CK), TOTAL AND [id number] 00:53:00* Test Item Value Reference Range Comments CREATINE KINASE TOTAL (BEAKER) (test rbcr=892) 314 U/L 29-200 CREATINE KINASE-MB (BEAKER) (test wjty=284) 5.8 ng/mL 0.0-6.6 CREATINE KINASE-MB INDEX (BEAKER) (test izhg=963) 1.8 % CK-MB Reference Range:<6.7 Normal6.7-10.0 Borderline>10.0 AbnormalPOCT -GLUCOSE [id number] 00:13:00* Test Item Value Reference Range Comments POC-GLUCOSE METER (BEAKER) (test vgar=1735) 152 mg/dL 70-110 TESTED AT [address] [address] TROPONIN [id number] 18:40:00* Test Item Value Reference Range Comments TROPONIN I (BEAKER) (test wngo=046) 4.95 ng/mL 0.00-0.03 Troponin I (TnI) levels must be interpreted in the context of the presenting symptoms and the clinical findings. Elevated TnI levels indicate myocardial damage, but are not specific for ischemic heart disease. Elevated TnI levels are seen in patients with other cardiac conditions (including myocarditis and congestive heart failure), and slight TnI elevations occur in patients with other conditions, including sepsis, renal failure, acidosis, acute neurological disease, and persistent tachyarrhythmia.CREATINE KINASE (CK), TOTAL AND [id number] 18:38:00* Test Item Value Reference Range Comments CREATINE KINASE TOTAL (BEAKER) (test yxyb=900) 375 U/L 29-200 CREATINE KINASE-MB (BEAKER) (test wlle=062) 8.0 ng/mL 0.0-6.6 CREATINE KINASE-MB INDEX (BEAKER) (test csyn=674) 2.1 % CK-MB Reference Range:<6.7 Normal6.7-10.0 Borderline>10.0 AbnormalPOCT -GLUCOSE [id number] 18:07:00* Test Item Value Reference Range Comments POC-GLUCOSE METER (BEAKER) (test wmvw=8799) 200 mg/dL 70-110 TESTED AT [facility] [address] [facility] [address] POCT-GLUCOSE [id number] 13:49:00* Test Item Value Reference Range Comments POC-GLUCOSE METER (BEAKER) (test fljq=6160) 206 mg/dL 70-110 TESTED AT [place] [id number] [facility] [address] TROPONIN [id number] 11:54:00* Test Item Value Reference Range Comments TROPONIN I (BEAKER) (test enfb=675) 9.15 ng/mL 0.00-0.03 Troponin I (TnI) levels must be interpreted in the context of the presenting symptoms and the clinical findings. Elevated TnI levels indicate myocardial damage, but are not specific for ischemic heart disease. Elevated TnI levels are seen in patients with other cardiac conditions (including myocarditis and congestive heart failure), and slight TnI elevations occur in patients with other conditions, including sepsis, renal failure, acidosis, acute neurological disease, and persistent tachyarrhythmia.CREATINE KINASE (CK), TOTAL AND [id number] 11:41:00* Test Item Value Reference Range Comments CREATINE KINASE TOTAL (BEAKER) (test moha=954) 450 U/L 29-200 CREATINE KINASE-MB (BEAKER) (test dtmc=230) 10.5 ng/mL 0.0-6.6 CREATINE KINASE-MB INDEX (BEAKER) (test gqde=113) 2.3 % CK-MB Reference Range:<6.7 Normal6.7-10.0 Borderline>10.0 AbnormalLACTIC ACID, VENOUS, WHOLE [id number] 11:26:00* Test Item Value Reference Range Comments LACTATE BLOOD VENOUS (2) (BEAKER) (test mtyf=5417) 1.0 mmol/L 0.5-2.2 Effective 08/23/2015: Units/Reference Range ChangeNew: 0.5-2.2 mmol/L Previous: 5 -20 mg/dLHEMOGLOBIN AND [id number] 11:09:00* Test Item Value Reference Range Comments HEMOGLOBIN (BEAKER) (test bndy=273) 10.0 GM/DL 13.7-17.5 HEMATOCRIT (BEAKER) (test hpwb=388) 30.9 % 40.1-51.0 CBC W/PLT COUNT & AUTO [id number] 09:14:00* Test Item Value Reference Range Comments WHITE BLOOD CELL COUNT (BEAKER) (test hbbe=950) 11.6 K/ L 3.5-10.5 RED BLOOD CELL COUNT (BEAKER) (test beeu=183) 2.99 M/ L 4.63-6.08 HEMOGLOBIN (BEAKER) (test hdld=953) 9.8 GM/DL 13.7-17.5 HEMATOCRIT (BEAKER) (test edjz=198) 30.5 % 40.1-51.0 MEAN CORPUSCULAR VOLUME (BEAKER) (test yvbn=300) 102.0 fL 79.0-92.2 MEAN CORPUSCULAR HEMOGLOBIN (BEAKER) (test ectc=343) 32.8 pg 25.7-32.2 MEAN CORPUSCULAR HEMOGLOBIN CONC (BEAKER) (test rlds=034) 32.1 GM/DL 32.3- 36.5 RED CELL DISTRIBUTION WIDTH (BEAKER) (test itbz=121) 13.4 % 11.6-14.4 PLATELET COUNT (BEAKER) (test sezg=910) 172 K/CU MM 150-450 MEAN PLATELET VOLUME (BEAKER) (test kxwl=185) 11.1 fL 9.4-12.4 NUCLEATED RED BLOOD CELLS (BEAKER) (test zgwl=746) 0 /100 WBC 0-0 NEUTROPHILS RELATIVE PERCENT (BEAKER) (test yhsv=854) 83 % LYMPHOCYTES RELATIVE PERCENT (BEAKER) (test zjrr=692) 3 % MONOCYTES RELATIVE PERCENT (BEAKER) (test jgse=760) 14 % EOSINOPHILS RELATIVE PERCENT (BEAKER) (test bzrb=424) 0 % BASOPHILS RELATIVE PERCENT (BEAKER) (test azqb=510) 0 % NEUTROPHILS ABSOLUTE COUNT (BEAKER) (test xurz=185) 9.55 K/ L 1.78-5.38 LYMPHOCYTES ABSOLUTE COUNT (BEAKER) (test ecxx=491) 0.36 K/ L 1.32-3.57 MONOCYTES ABSOLUTE COUNT (BEAKER) (test hagl=466) 1.58 K/ L 0.30-0.82 EOSINOPHILS ABSOLUTE COUNT (BEAKER) (test etjx=384) 0.01 K/ L 0.04-0.54 BASOPHILS ABSOLUTE COUNT (BEAKER) (test gqjb=505) 0.01 K/ L 0.01-0.08 IMMATURE GRANULOCYTES-RELATIVE PERCENT (BEAKER) (test pdas=4496) 1 % 0-1 (MANUAL DIFFERENTIAL)2017-04-19 09:14:00* Test Item Value Reference Range Comments TOTAL COUNTED (BEAKER) (test dkfn=6140) WBC MORPHOLOGY (BEAKER) (test qacx=205) Normal LARGE PLT(BEAKER) (test tvfl=0749) Present ANISOCYTOSIS (BEAKER) (test hjdg=967) 1+ few HYPOCHROMIA (BEAKER) (test krjg=766) 1+ few MACROCYTES (BEAKER) (test bmbu=893) 1+ few CREATINE KINASE (CK), TOTAL AND [id number] 06:25:00* Test Item Value Reference Range Comments CREATINE KINASE TOTAL (BEAKER) (test ohzl=846) 490 U/L 29-200 CREATINE KINASE-MB (BEAKER) (test wdte=879) 11.6 ng/mL 0.0-6.6 CREATINE KINASE-MB INDEX (BEAKER) (test jiui=436) 2.4 % CK-MB Reference Range:<6.7 Normal6.7-10.0 Borderline>10.0 [id number] 05:42:00* Test Item Value Reference Range Comments PARTIAL THROMBOPLASTIN TIME (BEAKER) (test szvo=506) 26.7 seconds 22.5-36.0 Prior to initiating heparinPLATELET [id number] 05:31:00* Test Item Value Reference Range Comments PLATELET COUNT (BEAKER) (test bvvs=892) 154 K/CU MM 150-450 Baseline and daily starting prior to initiation of heparin infusionCBC ( HEMOGRAM ONLY)2017-04-19 05:31:00* Test Item Value Reference Range Comments WHITE BLOOD CELL COUNT (BEAKER) (test iaux=548) 9.5 K/ L 3.5-10.5 RED BLOOD CELL COUNT (BEAKER) (test fzpx=784) 2.93 M/ L 4.63-6.08 HEMOGLOBIN (BEAKER) (test trew=122) 9.6 GM/DL 13.7-17.5 HEMATOCRIT (BEAKER) (test kqdq=564) 29.9 % 40.1-51.0 MEAN CORPUSCULAR VOLUME (BEAKER) (test itdm=403) 102.0 fL 79.0-92.2 MEAN CORPUSCULAR HEMOGLOBIN (BEAKER) (test uzeu=013) 32.8 pg 25.7-32.2 MEAN CORPUSCULAR HEMOGLOBIN CONC (BEAKER) (test xggy=482) 32.1 GM/DL 32.3- 36.5 RED CELL DISTRIBUTION WIDTH (BEAKER) (test pvqb=318) 13.4 % 11.6-14.4 PLATELET COUNT (BEAKER) (test xowe=968) 154 K/CU MM 150-450 MEAN PLATELET VOLUME (BEAKER) (test wbgw=241) 11.1 fL 9.4-12.4 NUCLEATED RED BLOOD CELLS (BEAKER) (test fdhu=324) 0 /100 WBC 0-0 LACTIC ACID, VENOUS, WHOLE [id number] 05:09:00* Test Item Value Reference Range Comments LACTATE BLOOD VENOUS (2) (BEAKER) (test jqfj=0108) 0.9 mmol/L 0.5-2.2 Specimen slightly hemolyzed Effective 08/23/2015: Units/Reference Range ChangeNew: 0.5-2.2 mmol/L Previous: 5 -20 mg/dLRAD, CHEST, 1 VIEW, NON [id number] 04:55:00Reason for exam:-> SOBShould this be performed at the bedside?->YesFINAL REPORT RAD, CHEST, 1 VIEW, NON DEPT INDICATION: SOB COMPARISON: Chest x-ray 12 hours ago TECHNIQUE: Single frontal view of the chest. IMPRESSION: Cardiomediastinal silhouette within normal limits.Slight worsening of the patchy airspace opacities, particularly in the upper lobes, concerning for pneumonia. Follow-up chest x-ray in 6 weeks recommended to ensure clearance.No acute osseous abnormality. Signed: Jigar Sinha MDReport Verified Date/Time: 04/19/2017 04:55:37 Reading Location: [address] Ortho Consult Reading Room ONIN [id number] 03:48:00* Test Item Value Reference Range Comments TROPONIN I (BEAKER) (test xwrx=361) 7.05 ng/mL 0.00-0.03 Troponin I (TnI) levels must be interpreted in the context of the presenting symptoms and the clinical findings. Elevated TnI levels indicate myocardial damage, but are not specific for ischemic heart disease. Elevated TnI levels are seen in patients with other cardiac conditions (including myocarditis and congestive heart failure), and slight TnI elevations occur in patients with other conditions, including sepsis, renal failure, acidosis, acute neurological disease, and persistent tachyarrhythmia.BASIC METABOLIC [id number] 03:32:00 * Test Item Value Reference Range Comments SODIUM (BEAKER) (test utto=320) 141 meq/L 136-145 POTASSIUM (BEAKER) (test qkcq=769) 3.9 meq/L 3.5-5.1 CHLORIDE (BEAKER) (test idln=215) 110 meq/L 98-107 CO2 (BEAKER) (test jbxt=765) 19 meq/L 22-29 BLOOD UREA NITROGEN (BEAKER) (test oyqu=552) 43 mg/dL 7-21 CREATININE (BEAKER) (test lmix=051) 2.13 mg/dL 0.57-1.25 GLUCOSE RANDOM (BEAKER) (test vast=722) 159 mg/dL 70-105 CALCIUM (BEAKER) (test exsf=253) 8.4 mg/dL 8.4-10.2 EGFR (BEAKER) (test avyw=9791) 37 mL/min/1.73 sq m ESTIMATED GFR IS NOT ACCURATE CREATININE CLEARANCE IN PREDICTING GLOMERULAR FILTRATION RATE. ESTIMATED GFR IS NOT APPLICABLE FOR DIALYSIS PATIENTS. POCT-GLUCOSE [id number] 01:40:00* Test Item Value Reference Range Comments POC-GLUCOSE METER (BEAKER) (test ezou=3352) 164 mg/dL 70-110 TESTED AT [facility] [address] [facility] [address] URINALYSIS W/ [id number] 00:29:00* Test Item Value Reference Range Comments COLOR (BEAKER) (test avzm=701) Yellow CLARITY (BEAKER) (test xjns=946) Hazy SPECIFIC GRAVITY UA (BEAKER) (test qqmx=810) 1.011 1.001-1.035 PH UA (BEAKER) (test xzgr=879) 5.5 5.0-8.0 PROTEIN UA (BEAKER) (test gufg=349) 50 mg/dL Negative GLUCOSE UA (BEAKER) (test hcko=240) Negative Negative KETONES UA (BEAKER) (test iumo=835) Negative Negative BILIRUBIN UA (BEAKER) (test ivjm=484) Negative Negative BLOOD UA (BEAKER) (test zkvt=777) Small Negative NITRITE UA (BEAKER) (test vbwx=221) Negative Negative LEUKOCYTE ESTERASE UA (BEAKER) (test yomx=691) Moderate Negative UROBILINOGEN UA (BEAKER) (test wtpv=484) 0.2 mg/dL 0.2-1.0 RBC UA (BEAKER) (test ohri=773) 26 /HPF WBC UA (BEAKER) (test rnkk=775) 73 /HPF MUCUS (BEAKER) (test risv=3702) Rare SQUAMOUS EPITHELIAL (BEAKER) (test bekn=054) < /HPF YEAST (BEAKER) (test qlav=9344) Few SOURCE(BEAKER) (test cxyp=5135) Urine, [place] CREATINE KINASE (CK), TOTAL AND [id number] 23:24:00* Test Item Value Reference Range Comments CREATINE KINASE TOTAL (BEAKER) (test ldfl=076) 529 U/L 29-200 CREATINE KINASE-MB (BEAKER) (test otpy=718) 20.2 ng/mL 0.0-6.6 CREATINE KINASE-MB INDEX (BEAKER) (test rixj=934) 3.8 % CK-MB Reference Range:<6.7 Normal6.7-10.0 Borderline>10.0 AbnormalLACTIC ACID, VENOUS, WHOLE [id number] 23:13:00* Test Item Value Reference Range Comments LACTATE BLOOD VENOUS (2) (BEAKER) (test biwf=0076) 1.2 mmol/L 0.5-2.2 Specimen slightly hemolyzed Effective 08/23/2015: Units/Reference Range ChangeNew: 0.5-2.2 mmol/L Previous: 5 -20 mg/dLBLOOD GAS, [id number] 23:06:00* Test Item Value Reference Range Comments PH ARTERIAL (BEAKER) (test syjo=747) 7.41 7.35-7.45 PCO2 ARTERIAL (BEAKER) (test ityf=900) 37 mmHg 35-45 PO2 ARTERIAL (BEAKER) (test vsha=296) 65 mmHg 80-90 O2 SATURATION ARTERIAL (BEAKER) (test uhbr=249) 92.6 % 96.0-97.0 HCO3 ARTERIAL (BEAKER) (test kqmn=892) 23 mmol/L 21-29 BASE EXCESS ARTERIAL (BEAKER) (test xhmg=670) -1.2 mmol/L -2.0-3.0 PATIENT TEMPERATURE (BEAKER) (test iqzp=7392) 37.4 C FIO2 (BEAKER) (test kkqx=5151) 60.0 % B-TYPE NATRIURETIC FACTOR (BNP)2017-04-18 17:40:00* Test Item Value Reference Range Comments B-TYPE NATRIURETIC PEPTIDE (BEAKER) (test miwh=959) 477 pg/mL 0-100 LACTIC ACID, VENOUS, WHOLE [id number] 17:18:00* Test Item Value Reference Range Comments LACTATE BLOOD VENOUS (2) (BEAKER) (test xhbp=4563) 2.9 mmol/L 0.5-2.2 Effective 08/23/2015: Units/Reference Range ChangeNew: 0.5-2.2 mmol/L Previous: 5 -18 mg/dLRAD, CHEST, 1 VIEW, NON [id number] 16:53:00Reason for exam:-> FEVERShould this be performed at the bedside?->YesFINAL REPORT TECHNIQUE: Frontal chest radiograph dated 04/18/2017. CLINICAL HISTORY : Fever COMPARISON STUDY: None IMPRESSION:Small bilateral pleural effusions are present. Increased interstitial lung markings in the lung bases are suggestive of interstitial pulmonary edema. No pneumothorax. Cardiomediastinal silhouette is normal in size. Degenerative changes are seen in the spine. No fracture. Signed: Emilie Morrisonepdorian Verified Date/Time: 04/18/2017 16:53:13 Reading Location: [facility] Radiology Reading Room D [id number] 16:16:00* Test Item Value Reference Range Comments RAPID CKMB (BEAKER) (test zkfg=6629) 3.7 ng/mL 0.0-4.3 RAPID TROPONIN [id number] 16:16:00* Test Item Value Reference Range Comments RAPID TROPONIN I (BEAKER) (test qsxe=2622) 0.12 ng/mL <0.05 RAPID INFLUENZA A&B [id number] 16:05:00* Test Item Value Reference Range Comments RAPID INFLUENZA A AG (BEAKER) (test uoip=7652) Positive Negative, Inconclusive RAPID INFLUENZA B AG (BEAKER) (test bwsi=0320) Negative Negative, Inconclusive COMPREHENSIVE METABOLIC [id number] 15:58:00* Test Item Value Reference Range Comments TOTAL PROTEIN (BEAKER) (test ugoi=881) 8.1 gm/dL 6.0-8.5 ALBUMIN (BEAKER) (test smpt=3699) 3.9 g/dL 3.5-5.0 ALKALINE PHOSPHATASE (BEAKER) (test wfli=780) 91 U/L 30-115 BILIRUBIN TOTAL (BEAKER) (test xfpv=623) 0.7 mg/dL 0.1-1.2 SODIUM (BEAKER) (test asrk=149) 145 meq/L 135-148 POTASSIUM (BEAKER) (test foxy=074) 4.0 meq/L 3.6-5.5 CHLORIDE (BEAKER) (test besz=511) 107 meq/L 98-106 CO2 (BEAKER) (test gcrq=278) 19 meq/L 24-32 BLOOD UREA NITROGEN (BEAKER) (test fbrl=198) 44 mg/dL 10-26 CREATININE (BEAKER) (test ekor=973) 2.23 mg/dL 0.50-1.20 GLUCOSE RANDOM (BEAKER) (test ygdc=273) 173 mg/dL 70-110 CALCIUM (BEAKER) (test wvtk=285) 8.9 mg/dL 8.5-10.5 AST (SGOT) (BEAKER) (test asxd=217) 28 U/L 5-40 ALT (SGPT) (BEAKER) (test uabg=600) 45 U/L 5-50 EGFR (BEAKER) (test pljb=0060) 35 mL/min/1.73 sq m ESTIMATED GFR IS NOT ACCURATE CREATININE CLEARANCE IN PREDICTING GLOMERULAR FILTRATION RATE. ESTIMATED GFR IS NOT APPLICABLE FOR DIALYSIS PATIENTS. CBC W/PLT COUNT & AUTO [id number] 15:57:00* Test Item Value Reference Range Comments WHITE BLOOD CELL COUNT (BEAKER) (test skfy=667) 13.7 10e3/ L 4.0-10.0 RED BLOOD CELL COUNT (BEAKER) (test jtyx=457) 3.23 10e6/ L 4.20-5.80 HEMOGLOBIN (BEAKER) (test kzqw=449) 10.8 g/dL 13.0-16.8 HEMATOCRIT (BEAKER) (test szbs=693) 32.8 % 40.0-50.0 MEAN CORPUSCULAR VOLUME (BEAKER) (test kedr=795) 101.6 fL 82.0-98.0 MEAN CORPUSCULAR HEMOGLOBIN (BEAKER) (test ppct=127) 33.3 pg 27.0-33.0 MEAN CORPUSCULAR HEMOGLOBIN CONC (BEAKER) (test tmlf=964) 32.8 g/dL 32.0- 36.0 RED CELL DISTRIBUTION WIDTH (BEAKER) (test crwc=291) 11.2 % 10.3-14.2 PLATELET COUNT (BEAKER) (test xmkx=861) 190 10e3/ L 150-430 MEAN PLATELET VOLUME (BEAKER) (test olnt=217) 8.6 fL 6.5-10.5 NEUTROPHILS RELATIVE PERCENT (BEAKER) (test gwgi=331) 74 % LYMPHOCYTES RELATIVE PERCENT (BEAKER) (test pocb=016) 9 % MONOCYTES RELATIVE PERCENT (BEAKER) (test zcll=739) 16 % EOSINOPHILS RELATIVE PERCENT (BEAKER) (test sphd=933) 1 % BASOPHILS RELATIVE PERCENT (BEAKER) (test dvkl=965) 1 % NEUTROPHILS ABSOLUTE COUNT (BEAKER) (test yjdw=509) 10.13 10e3/ L 1.80-8.00 LYMPHOCYTES ABSOLUTE COUNT (BEAKER) (test anqj=668) 1.22 10e3/ L 1.48-4.50 MONOCYTES ABSOLUTE COUNT (BEAKER) (test scex=741) 2.12 10e3/ L 0.00-1.30 EOSINOPHILS ABSOLUTE COUNT (BEAKER) (test cvla=896) 0.15 10e3/ L 0.00-0.50 BASOPHILS ABSOLUTE COUNT (BEAKER) (test hrsy=477) 0.08 10e3/ L 0.00-0.20 [id number] 15:53:00* Test Item Value Reference Range Comments MAGNESIUM (BEAKER) (test tiwk=427) 2.1 mg/dL 1.5-3.0 LACTIC ACID, VENOUS, WHOLE [id number] 15:50:00* Test Item Value Reference Range Comments LACTATE BLOOD VENOUS (2) (BEAKER) (test ahjw=6773) 3.5 mmol/L 0.5-2.2 Effective 08/23/2015: Units/Reference Range ChangeNew: 0.5-2.2 mmol/L Previous: 5 -18 mg/dLAFB CULTURE + [id number] 17:58:00* Test Item Value Reference Range Comments CULTURE (BEAKER) (test cxii=9076) No acid-fast bacilli isolated in 42 days AFB SMEAR (BEAKER) (test gkpp=596) No acid fast bacilli seen
[2017-07-09] MEDS ORDERED: LABETALOL HCL100 MG PO (15:56)
[2017-07-09] MEDS ORDERED: DIPHENOXYLATE-1 EACH (15:56)
[2017-07-09] MEDS ORDERED: FLOMAX0.4 MG PO (15:56)
[2017-07-09] MEDS ORDERED: LISINOPRIL10 MG PO (15:56)
[2017-07-09] MEDS ORDERED: TORSEMIDE10 MG PO (15:56)
[2017-07-09] MEDS ORDERED: ACYCLOVIR200 MG PO (15:56)
[2017-07-09] MEDS ORDERED: CARVEDILOL12.5 MG PO (15:56)
[2017-07-09] MEDS ORDERED: ASPIR 8181 MG PO (15:56)
[2017-07-09] MEDS ORDERED: TERAZOSIN HCL5 MG PO (15:56)
[2017-07-09] MEDS ORDERED: NIFEDIPINE ER30 M1 PO (15:56)
[2017-07-09] MEDS ORDERED: GABAPENTIN300 MG PO (15:56)
[2017-07-09] MEDS ORDERED: HYDRALAZINE HCL25 MG PO (15:56)
[2017-07-09] MEDS ORDERED: ALPRAZOLAM1 MG PO (15:56)
[2017-07-09 16:34] LABS: BASOPHILS % 0.2 % (0.0-1.0); EOSINOPHILS # (AUTO) 0.1 (0.0-0.4); EOSINOPHILS % 1.4 % (0.0-6.0); HEMATOCRIT 33.9 % (38.2-49.6); HEMOGLOBIN 10.9 g/dL (14.0-18.0); LYMPHOCYTES # (AUTO) 2.6 (1.0-3.2); LYMPHOCYTES % 28.3 % (18.0-39.1); MEAN CORPUSCULAR HEMOGLOBIN 32.4 pg (28-32); MEAN CORPUSCULAR HGB CONC 32.2 g/dL (31-35); MEAN CORPUSCULAR VOLUME 100.9 fL (81-99); MONOCYTES # (AUTO) 1.6 (0.2-0.8); MONOCYTES % 17.7 % (4.4-11.3); NEUTROPHILS # (AUTO) 4.8 (2.1-6.9); NEUTROPHILS % 51.9 % (38.7-80.0); PLATELET COUNT 242 x10e3/uL (140-360); RED BLOOD COUNT 3.36 x10e6/uL (4.3-5.7); RED CELL DISTRIBUTION WIDTH 14.8 % (11.7-14.4)
[2017-07-09 16:49] LABS: MAGNESIUM 1.8 MG/DL (1.3-2.1); PHOSPHORUS 3.5 MG/DL (2.3-4.7)
[2017-07-09 17:11] LABS: THYROID STIMULATING HORMONE 0.669 uIU/mL (0.350-4.940)
[2017-07-09 17:19] LABS: EOSINOPHILS % (MANUAL) 4 % (0-7); LYMPHOCYTES % (MANUAL) 26 % (19-48); MONOCYTES % (MANUAL) 16 % (3.4-9.0); NEUTROPHILS % (MANUAL) 54 % (40-74)
[2017-07-09 17:22] LABS: ANISOCYTOSIS SLIGHT; PLATELET ESTIMATE ADEQUATE; PLATELET MORPHOLOGY COMMENT NORMAL; RBC MORPHOLOGY COMMENT NORMAL
[2017-07-09 18:34] LABS: BILIRUBIN,URINE NEGATIVE (NEGATIVE); KETONES,URINE NEGATIVE (NEGATIVE); LEUKOCYTE ESTERASE ,URINE 2+ (NEGATIVE); NITRITE,URINE NEGATIVE (NEGATIVE); URINE UROBILINOGEN 0.2 mg/dL (0.2 - 1)
[2017-07-09 18:36] LABS: CLARITY,URINE CLOUDY (CLEAR); COLOR,URINE YELLOW (YELLOW); PROTEIN,URINE DIPSTICK 2+ (NEGATIVE)
[2017-07-09 18:37] LABS: ALBUMIN 3.3 g/dL (3.5-5.0); ALBUMIN/GLOBULIN RATIO 0.8 (0.8-2.0); ANION GAP 20.2 mmol/L (8-16); CALCIUM 9.5 mg/dL (8.4-10.2); CREATININE, SERUM 3.72 mg/dL (0.72-1.25); POTASSIUM 4.2 mmol/L (3.5-5.1)
[2017-07-09 18:55] LABS: BACTERIA,URINE MODERATE /HPF; EPITHELIAL CELLS,URINE MANY /LPF; WBC,URINE (MAN) >50 /HPF (0-5)
[2017-07-09] MEDS ORDERED: CEFTRIAXONE SOD 1 GM VIAL IV ONE (19:00)
[2017-07-09] MEDS ORDERED: SODIUM CHLORIDE 0.9% 500ML 500 ML IV ONE (19:15)
[2017-07-09] MEDS ORDERED: SODIUM CHLORIDE 0.9% 1000ML 1,000 ML IV SCH (19:23)
[2017-07-09] MEDS ORDERED: ONDANSETRON HCL INJ 2 MG/ML VIAL IV PRN (19:30)
[2017-07-09] MEDS ORDERED: SODIUM CHLORIDE FLUSH 10 ML SYR INJ PRN (19:30)
[2017-07-09 21:00] VITALS: BP 134/63
[2017-07-09 23:23] VITALS: BP 134/63
[2017-07-10] MEDS ORDERED: GABAPENTIN100 MG PO (00:14)
[2017-07-10] MEDS ORDERED: TORSEMIDE10 MG PO (00:14)
[2017-07-10] MEDS ORDERED: NIFEDIPINE ER30 M1 PO (00:14)
[2017-07-10] MEDS ORDERED: ASPIR 8181 MG PO (00:14)
[2017-07-10] MEDS ORDERED: LISINOPRIL10 MG PO (00:14)
[2017-07-10] MEDS ORDERED: ALPRAZOLAM1 MG PO (00:14)
[2017-07-10] MEDS ORDERED: ACYCLOVIR200 MG PO (00:14)
[2017-07-10] MEDS ORDERED: LABETALOL HCL100 MG PO (00:14)
[2017-07-10] MEDS ORDERED: HYDRALAZINE HCL25 MG PO (00:14)
[2017-07-10] MEDS ORDERED: TERAZOSIN HCL5 MG PO (00:14)
[2017-07-10] MEDS ORDERED: FLOMAX0.4 MG PO (00:14)
[2017-07-10] MEDS ORDERED: CARVEDILOL12.5 MG PO (00:14)
[2017-07-10] MEDS ORDERED: LOMOTIL TABLET1 EACH PO (00:14)
[2017-07-10 00:15] VITALS: BP 148/67
[2017-07-10 00:52] VITALS: BP 148/67
[2017-07-10 05:00] VITALS: BP 159/68
[2017-07-10 06:27] LABS: BASOPHILS % 0.3 % (0.0-1.0); EOSINOPHILS # (AUTO) 0.2 (0.0-0.4); EOSINOPHILS % 2.6 % (0.0-6.0); LYMPHOCYTES # (AUTO) 2.2 (1.0-3.2); LYMPHOCYTES % 34.2 % (18.0-39.1); MEAN CORPUSCULAR HEMOGLOBIN 32.7 pg (28-32); MEAN CORPUSCULAR HGB CONC 32.3 g/dL (31-35); MEAN CORPUSCULAR VOLUME 101.3 fL (81-99); MONOCYTES # (AUTO) 1.6 (0.2-0.8); MONOCYTES % 25.3 % (4.4-11.3); NEUTROPHILS # (AUTO) 2.4 (2.1-6.9); NEUTROPHILS % 37.1 % (38.7-80.0); PLATELET COUNT 229 x10e3/uL (140-360); RED BLOOD COUNT 3.06 x10e6/uL (4.3-5.7); RED CELL DISTRIBUTION WIDTH 14.9 % (11.7-14.4)
[2017-07-10 06:46] LABS: ALBUMIN 2.8 g/dL (3.5-5.0); ALBUMIN/GLOBULIN RATIO 0.7 (0.8-2.0); ANION GAP 14.2 mmol/L (8-16); CALCIUM 9.3 mg/dL (8.4-10.2); CREATININE, SERUM 2.44 mg/dL (0.72-1.25); PHOSPHORUS 3.5 MG/DL (2.3-4.7); POTASSIUM 4.2 mmol/L (3.5-5.1)
[2017-07-10 08:24] VITALS: BP 164/73
[2017-07-10 11:29] LABS: EOSINOPHILS % (MANUAL) 3 % (0-7); LYMPHOCYTES % (MANUAL) 36 % (19-48); MONOCYTES % (MANUAL) 18 % (3.4-9.0); NEUTROPHILS % (MANUAL) 42 % (40-74)
[2017-07-10 11:44] LABS: ANISOCYTOSIS SLIGHT; HYPOCHROMASIA SLIGHT; PLATELET ESTIMATE ADEQUATE; PLATELET MORPHOLOGY COMMENT NORMAL; RBC MORPHOLOGY COMMENT NORMAL
[2017-07-10 11:50] VITALS: BP 197/81
[2017-07-10] MEDS ORDERED: LABETALOL HCL 100 MG TAB PO SCH (12:30)
[2017-07-10] MEDS ORDERED: CARVEDILOL 12.5 MG TAB PO SCH (12:30)
[2017-07-10] MEDS ORDERED: NIFEDIPINE CR 30 MG TAB PO SCH (12:30)
[2017-07-10] MEDS ORDERED: HYDRALAZINE HCL 25 MG TAB PO SCH (12:30)
== END 2017-07-10 15:54 | disposition home or self-care (01) ==
LOC: ER 14:40 → IMCU 19:31
PROVIDERS: ADMIT Internal Medicine; ATTEND Internal Medicine
DX: N17.9 Acute kidney failure, unspecified (principal); R53.1 Weakness; E86.0 Dehydration; N39.0 Urinary tract infection, site not specified; I13.10 Hypertensive heart and chronic kidney disease without heart failure, with stage 1 through stage 4 chronic kidney disease, or unspecified chronic kidney disease; N18.9 Chronic kidney disease, unspecified; E11.9 Type 2 diabetes mellitus without complications; I95.89 Other hypotension
CPT/HCPCS: 36415 ×2; 80053 ×2; 81001; 82948 ×2; 83735 ×2; 83880; 84100 ×2; 84443; 84484; 85025 ×2; 93005; 99284; G0378 ×2; J0696; J7030; J7040

== ENCOUNTER 2017-07-29 11:22 | Inpatient (IN) | payer MEDICARE ==
[~2017-07-29] VITALS: Ht 188 cm; Wt 100.2 kg
[~2017-07-29 11:22] MED LIST: ACYCLOVIR200 MG PO; ALPRAZOLAM1 MG PO; ASPIR 8181 MG PO; CARVEDILOL12.5 MG PO; DIPHENOXYLATE-1 EACH; FLOMAX0.4 MG PO; GABAPENTIN100 MG PO; GABAPENTIN300 MG PO; HYDRALAZINE HCL25 MG PO; LABETALOL HCL100 MG PO; LISINOPRIL10 MG PO; LOMOTIL TABLET1 EACH PO; NIFEDIPINE ER30 M1 PO; TERAZOSIN HCL5 MG PO; TORSEMIDE10 MG PO
--- OUTSIDE RECORDS SUMMARY | 2017-07-29 11:27 | XMS REPORT | Clinical Summary ---
Author Author MAHNAZ [facility] Address Unknown Phone Unavailable Care Team Providers Care Branch Logistics Supervisor Name Role Phone PCP Unavailable Allergies Active Allergy Reactions Severity Noted Date Comments Glyburide 04/19/2016 Current Medications Prescription Sig. Disp. Refills Start End Date Status Date acyclovir (ZOVIRAX) 400 Take 400 mg by mouth Active MG tablet daily . atorvastatin (LIPITOR) 20 Take 20 mg by mouth Active MG tablet daily. insulin glargine (LANTUS) Inject subcutaneously Active 100 unit/mL injection nightly 30 units sc qam and 30 units sc qpm. tamsulosin (FLOMAX) 0.4 Take 0.8 mg by mouth Active mg Cp24 24 hr capsule daily . diphenoxylate-atropine Take 2 tablets by mouth 4 Active (LOMOTIL) 2.5-0.025 mg (four) times daily as per tablet needed for Diarrhea . ALPRAZolam (XANAX) 1 MG Take 2 mg by mouth every Active tablet night as needed for Sleep. aspirin 81 MG chewable Take 81 mg by mouth Active tablet daily. gabapentin (NEURONTIN) Take 600 mg by mouth 2 Active 600 MG tablet (two) times daily. budesonide-formoterol Inhale 2 puffs by mouth 1 Inhaler 04/25/19 04/25/19 Active (SYMBICORT) 160-4.5 via inhaler 2 (two) times 18 19 mcg/actuation inhaler daily. carvedilol (COREG) 25 MG Take 1 tablet (25 mg 60 tablet 04/25/19 04/25/19 Active tablet total) by mouth 2 (two) 18 19 times daily. torsemide (DEMADEX) 20 MG Take 2 tablets (40 mg 120 tablet 04/25/19 Active tablet total) by mouth 2 (two) 18 19 times daily When leg swelling improves, can decrease to 20 mg twice a day. hydrALAZINE (APRESOLINE) Take 1 tablet (100 mg 90 tablet 11 04/25/19 04/25/19 Active 100 MG tablet total) by mouth every 8 18 19 (eight) hours. lisinopril Take 1 tablet (40 mg 30 tablet 3 04/25/19 Active (PRINIVIL,ZESTRIL) 40 MG total) by mouth daily. 18 tablet NIFEdipine (ADALAT CC) 90 Take 1 tablet (90 mg 30 tablet 3 04/25/19 Active MG 24 hr tablet total) by mouth daily. 18 terazosin (HYTRIN) 5 MG Take 1 capsule (5 mg 60 capsule 11 04/25/19 04/25/19 Active capsule total) by mouth 2 (two) 18 19 times daily. dexamethasone (DECADRON) Take 20 mg by mouth every 04/25/19 Discontin 2 MG tablet 7 days 10 tabs po every 18 ued Friday. lisinopril Take 40 mg by mouth 04/25/19 Discontin (PRINIVIL,ZESTRIL) 40 MG daily. 18 ued tablet NIFEdipine (ADALAT CC) 90 Take 90 mg by mouth 04/25/19 Discontin MG 24 hr tablet daily. 18 ued lenalidomide (REVLIMID) Take by mouth daily One 04/25/19 Discontin 25 mg capsule tab daily for 3 weeks and 18 ued one week off . guaiFENesin (MUCINEX) 600 Take 1 tablet (600 mg 20 tablet 0 04/25/19 05/05/19 mg 12 hr tablet total) by mouth 2 (two) 18 18 times daily for 10 days. metroNIDAZOLE (FLAGYL) Take 1 tablet (500 mg 18 tablet 0 04/25/19 Discontin 500 MG tablet total) by mouth every 8 18 18 ued (eight) hours for 6 days. predniSONE (DELTASONE) 20 Take 1 tablet (20 mg 5 tablet 0 04/26/19 05/01/19 MG tablet total) by mouth daily for 18 18 5 days. vancomycin 125 mg/2.5 mL Take 2.5 mLs (125 mg 100 mL 0 04/27/19 Syrg total) by mouth 4 (four) 18 18 times daily for 10 days. Active Problems Problem Noted Date Sepsis (HCC) 04/27/2017 Acute respiratory failure (HCC) 04/27/2017 Diastolic CHF, acute on chronic ([facility]) 04/27/2017 Pleural effusion 04/27/2017 Hypertension 04/27/2017 Hyperlipidemia 04/27/2017 C. difficile diarrhea 04/27/2017 Pericardial effusion 04/27/2017 Bilateral pneumonia 04/27/2017 NSTEMI (non-ST elevated myocardial infarction) ([facility]) 04/19/2017 (HFpEF) heart failure with preserved ejection fraction ([facility]) 04/19/2017 Essential hypertension 04/19/2017 Influenza A 04/18/2017 DM type 2 (diabetes mellitus, type 2) ([facility]) 04/24/2016 Multiple myeloma ([facility]) 04/24/2016 Encounters Date Type Specialty Care Team Description 04/18/2017 [facility] General Internal Medicine Peter Wren, Influenza A (Primary - Encounter MD Dx);Acute on chronic 04/27/2017 Elen Hernandez congestive heart failureOh MD unspecified congestive Daina Yeboah MD heart failure type ([facility]);EDGARD (acute kidney injury) ([facility]);Acute respiratory failure with hypoxia ([facility]);Severe sepsis ([facility]) 04/18/2017 Orders Only General Internal Medicine after 07/28/2016 Family History Medical History Relation Name Comments Diabetes Father Relation Name Status Comments Father Social History Tobacco Use Types Packs/Day Years Used Date Current Some Day Smoker Cigars Smokeless Tobacco: Never Used Tobacco Cessation: Counseling Given: Yes Comments: Only smokes maybe 1-2 cigars a week Alcohol Use Drinks/Week oz/Week Comments Yes social Sex Assigned at Date Recorded Not on file Last Filed Vital Signs Vital Sign Reading Time Taken Blood Pressure 151/68 04/27/2017 12:18 PM ASSOCIATE ACCOUNTANT Pulse 60 04/27/2017 12:18 PM ASSOCIATE ACCOUNTANT Temperature 36.2 C (97.2 F) 04/27/2017 12:18 PM ASSOCIATE ACCOUNTANT Respiratory Rate 19 04/27/2017 12:18 PM ASSOCIATE ACCOUNTANT Oxygen Saturation 97% 04/27/2017 12:18 PM ASSOCIATE ACCOUNTANT Inhaled Oxygen - - Concentration Weight 105.3 kg (232 lb 3.2 oz) 04/27/2017 6:00 AM ASSOCIATE ACCOUNTANT Height 185.4 cm (6' 1") 04/18/2017 3:03 PM ASSOCIATE ACCOUNTANT Body Mass Index 30.64 04/27/2017 6:00 AM ASSOCIATE ACCOUNTANT Plan of Treatment Not on file Procedures Procedure Name Priority Date/Time Associated Diagnosis Comments CRITICAL CARE Routine 04/18/2017 Results for this 6:52 PM ASSOCIATE ACCOUNTANT procedure are in the results section. after 07/28/2016 Results * RHYTHM STRIP - SCAN (04/29/2017 11:10 AM) * POC-Glucose meter (04/27/2017 4:38 PM) Only the most recent of 38 results within the time period is included. Component Value Ref Range POC-Glucose Meter 208 (H)Comment: TESTED AT [address] 70 - 110 mg /dL [facility] [address] Specimen Performing Laboratory Blood [facility] [address] [address] * XR chest 1 view portable / bedside (04/27/2017 8:44 AM) Only the most recent of 7 results within the time period is included. Specimen Performing Laboratory GE RIS Narrative FINAL REPORT CHEST ONE VIEW HISTORY: Pleural effusions COMPARISON: 04/26/2017 FINDINGS: Single portable AP examination of the chest was performed. There is unchanged left lower lobe airspace consolidation, partial obscuring the left diaphragm, suggestive of atelectasis or pneumonia. A minimal left pleural effusion is suspected. No right pleural effusion. Right lung clear. No pneumothorax. The cardiac shadow is borderline enlarged, unchanged. Signed: Ian Lopes MD Report Verified Date/Time:04/27/2017 10:19:00 Reading Location: [address] Ortho Consult Reading Room Procedure Note Interface, External Ris In - 04/27/2017 10:21 AM ASSOCIATE ACCOUNTANT FINAL REPORT CHEST ONE VIEW HISTORY: Pleural effusions COMPARISON: 04/26/2017 FINDINGS: Single portable AP examination of the chest was performed. There is unchanged left lower lobe airspace consolidation, partial obscuring the left diaphragm, suggestive of atelectasis or pneumonia. A minimal left pleural effusion is suspected. No right pleural effusion. Right lung clear. No pneumothorax. The cardiac shadow is borderline enlarged, unchanged. Signed: Ian Lopes MD Report Verified Date/Time: 04/27/2017 10:19:00 Reading Location: [address] Ortho Consult Reading Room * CBC with platelet count + automated diff (04/27/2017 5:39 AM) Only the most recent of 5 results within the time period is included. Component Value Ref Range WBC 7.1 3.5 - 10.5 K/ L RBC 2.77 (L) 4.63 - 6.08 M/ L Hemoglobin 9.0 (L) 13.7 - 17.5 GM/DL Hematocrit 27.5 (L) 40.1 - 51.0 % MCV 99.3 (H) 79.0 - 92.2 fL MCH 32.5 (H) 25.7 - 32.2 pg MCHC 32.7 32.3 - 36.5 GM/DL RDW 13.2 11.6 - 14.4 % Platelets 202 150 - 450 K/CU MM MPV 11.5 9.4 - 12.4 fL nRBC 0 0 - 0 /100 WBC % Neutros 52 % % Lymphs 25 % % Monos 21 % % Eos 1 % % Baso 0 % # Neutros 3.68 1.78 - 5.38 K/ L # Lymphs 1.76 1.32 - 3.57 K/ L # Monos 1.47 (H) 0.30 - 0.82 K/ L # Eos 0.09 0.04 - 0.54 K/ L # Baso 0.01 0.01 - 0.08 K/ L Immature 1 0 - 1 % Granulocytes-Relative Specimen Performing Laboratory Blood [address] [address] * CBC with platelet count + automated diff (04/27/2017 5:39 AM) Only the most recent of 5 results within the time period is included. Specimen Performing Laboratory Blood Narrative The following orders were created for panel order CBC with platelet count + automated diff. Procedure Abnormality Status --------- - ------ CBC with platelet count ...[[id number]]AbnormalFinal result Please view results for these tests on the individual orders. * B-type Natriuretic Factor (BNP) (04/27/2017 5:39 AM) Only the most recent of 3 results within the time period is included. Component Value Ref Range BNP 200 (H) 0 - 100 pg/mL Specimen Performing Laboratory Blood [address] [place] [address] * Basic Metabolic Panel (04/27/2017 5:39 AM) Only the most recent of 9 results within the time period is included. Component Value Ref Range Sodium 145 136 - 145 meq/L Potassium 3.8 3.5 - 5.1 meq/L Chloride 116 (H) 98 - 107 meq/L CO2 22 22 - 29 meq/L BUN 45 (H) 7 - 21 mg/dL Creatinine 1.54 (H) 0.57 - 1.25 mg/dL Glucose 71 70 - 105 mg/dL Calcium 8.4 8.4 - 10.2 mg/dL EGFR 53Comment: ESTIMATED GFR IS NOT ACCURATE mL/min/1.73 sq m CREATININE CLEARANCE IN PREDICTING GLOMERULAR FILTRATION RATE. ESTIMATED GFR IS NOT APPLICABLE FOR DIALYSIS PATIENTS. Specimen Performing Laboratory Blood [address] [address] * Magnesium (04/26/2017 5:21 AM) Only the most recent of 7 results within the time period is included. Component Value Ref Range Magnesium 2.2Comment: Specimen slightly hemolyzed 1.6 - 2.6 mg/dL Specimen Performing Laboratory Blood [address] [address] * CBC (hemogram only) (04/24/2017 4:39 AM) Only the most recent of 6 results within the time period is included. Component Value Ref Range WBC 6.8 3.5 - 10.5 K/ L RBC 2.96 (L) 4.63 - 6.08 M/ L Hemoglobin 9.5 (L) 13.7 - 17.5 GM/DL Hematocrit 29.3 (L) 40.1 - 51.0 % MCV 99.0 (H) 79.0 - 92.2 fL MCH 32.1 25.7 - 32.2 pg MCHC 32.4 32.3 - 36.5 GM/DL RDW 12.8 11.6 - 14.4 % Platelets 182 150 - 450 K/CU MM MPV 11.5 9.4 - 12.4 fL nRBC 0 0 - 0 /100 WBC Specimen Performing Laboratory Blood - Arm, Right [address] [address] * TSH/Free T4 If Indicated (04/23/2017 3:43 AM) Component Value Ref Range TSH 0.70 0.35 - 4.94 uIU/mL Specimen Performing Laboratory Blood - Hand, [address] [address] * Phosphorus (04/23/2017 3:43 AM) Component Value Ref Range Phosphorus 3.1 2.3 - 4.7 mg/dL Specimen Performing Laboratory Blood - Hand, [address] [address] * Hemoglobin A1c (04/23/2017 3:43 AM) Component Value Ref Range Hemoglobin A1C 5.9 4.3 - 6.1 % Specimen Performing Laboratory Blood - Hand, [place] [address] * Hepatic function panel (04/23/2017 3:43 AM) Component Value Ref Range Protein, Total 6.1 6.0 - 8.3 gm/dL Albumin 2.7 (L) 3.5 - 5.0 g/dL Total Bilirubin 0.6 0.2 - 1.2 mg/dL Bilirubin, Direct 0.2 0.1 - 0.5 mg/dL Alkaline Phosphatase 53 40 - 150 U/L AST 18 5 - 34 U/L ALT 29 6 - 55 U/L Specimen Performing Laboratory Blood - Hand, [address] [address] * Lipid panel (04/23/2017 3:43 AM) Component Value Ref Range Triglycerides 179 mg/dL Cholesterol 140 mg/dL HDL 30 mg/dL LDL Calculated 74 mg/dL Specimen Performing Laboratory Blood - Hand, [address] [address] Narrative Triglyceride Reference Range: Low Risk <150 [id number] High Risk 200-499 Very High Risk>=500 Cholesterol Reference Range: Low Risk <200 Ovdzbvzmos605-301 High Risk>240 HDL Cholesterol Reference Range: Low Risk >=60 High Risk <40 LDL Cholesterol Reference Range: Optimal<100 Near Amgaiaq085-775 Cczruapdex281-952 Crkt419-974 Very High >=190 * Strep pneumoniae antigen (04/22/2017 7:29 PM) Component Value Ref Range Strep pneumoniae Antigen Presumptive negative for pneumococcal pneumonia - Presumptive negative for see comment pneumococcal pneumonia - see comment, Presumptive negative for pneumococcal meningitis - see comment Specimen Performing Laboratory Urine - Urine, [facility] Unspecified Source [address] [place] [id number] Narrative Presumptive negative for pneumococcal pneumonia, suggesting no current or recent pneumococcal infection. Infection due to S. pneumoniae cannot be ruled out since the antigen present in the sample may be below the detection limit of the test. * Legionella antigen, urine (04/22/2017 7:29 PM) Component Value Ref Range Legionella Urine Antigen Negative - see commentComment: Negative for L. pneumophila serogroup 1 antigen, suggesting no recent or current infection with this serogroup. Legionellosis cannot be ruled out since other serogroups and species may cause disease. Specimen Performing Laboratory Urine - Urine, [place] [address] * Occult blood, stool (04/22/2017 11:41 AM) Component Value Ref Range Occult blood Positive (A) Negative Specimen [place] [address] * Clostridium difficile Toxin PCR (04/22/2017 10:47 AM) Component Value Ref Range C.Diff Toxin, PCR Detected (A) Not Detected Specimen [place] [address] Narrative This qualitative real-time polymerase chain reaction assay detects the tcdB gene , encoded on the C.difficile pathogenicity locus (PaLoc).The product of tcdB , toxin B, is a cytotoxin essential for causing C.difficile-associated disease ( CDAD) and is found in virtually all toxigenic C.difficile. This assay is performed for patients suspected of having either community- acquired or nosocomial CDAD.Accordingly, only symptomatic patients should be tested and formed stools will be rejected unless ileus is present (i.e., specified when ordering).Patients may be colonized with toxigenic C.difficile strains not causing active disease; therefore, clinical correlation is needed when deciding how to manage patients with a positive test result. The assay has not been validated as a test of cure as amplifiable nucleic acid may persist after effective treatment; therefore, follow-up testing of a positive result is not recommended. * Sputum Culture + Gram Stain (04/21/2017 2:23 PM) Only the most recent of 3 results within the time period is included. Component Value Ref Range Result 2+ Normal respiratory madyson present Gram Stain Result 2+ White blood cells seen Gram Stain Result 10-15 epithelial cells Gram Stain Result 1+ gram negative rods Specimen Performing Laboratory Sputum - Expectorated [address] [address] * CT chest without IV contrast (04/21/2017 9:25 AM) Specimen Performing Laboratory RIS Narrative FINAL REPORT TECHNIQUE: CT scan of the chest WITHOUT intravenous contrast. Dose modulation, iterative reconstruction, and/or weight-based adjustment of the mA/kV was utilized to reduce the radiation dose [...] in the partially visualized gallbladder. Otherwise, unremarkable. IMPRESSION: Consolidative opacities in both upper lobes, likely multifocal pneumonia. Bilateral groundglass opacities may relate to the same process as above or may represent mild pulmonary edema. Bilateral small-moderate pleural effusions. 4 mm and 5 mm pulmonary nodules. Signed: Keiry Martinez MD Report Verified Date/Time:04/21/2017 10:06:22 Reading Location: [facility] B1 C013Y CT Body Reading Room Procedure Note Interface, External Ris In - 04/21/2017 10:08 AM ASSOCIATE ACCOUNTANT FINAL REPORT TECHNIQUE: CT scan of the chest WITHOUT intravenous contrast. Dose modulation, iterative reconstruction, and/or weight-based adjustment of the mA/kV was utilized to reduce the radiation dose [...] in the partially visualized gallbladder. Otherwise, unremarkable. IMPRESSION: Consolidative opacities in both upper lobes, likely multifocal pneumonia. Bilateral groundglass opacities may relate to the same process as above or may represent mild pulmonary edema. Bilateral small-moderate pleural effusions. 4 mm and 5 mm pulmonary nodules. Signed: Keiry Martinez MD Report Verified Date/Time: 04/21/2017 10:06:22 Reading Location: [address] Body Reading Room * Manual Differential (04/21/2017 4:53 AM) Only the most recent of 2 results within the time period is included. Specimen Performing Laboratory Blood [address] [address] * Vancomycin level, trough (04/20/2017 4:57 PM) Component Value Ref Range Vancomycin Tr 11.8 10.0 - 20.0 ug/mL Specimen Performing Laboratory Blood [address] [address] Narrative Draw trough level prior to dose administration. * Troponin I (04/20/2017 8:36 AM) Only the most recent of 5 results within the time period is included. Component Value Ref Range Troponin I 3.04 (HH) 0.00 - 0.03 ng/mL Specimen [place] [address] Narrative Troponin I (TnI) levels must be interpreted [...] failure, acidosis, acute neurological disease, and persistent tachyarrhythmia. * Creatine Kinase (CK), Total and MB (04/20/2017 8:36 AM) Only the most recent of 6 results within the time period is included. Component Value Ref Range Total CK 366 (H) 29 - 200 U/L CK-MB 5.6 0.0 - 6.6 ng/mL MB Relative Index 1.5 % Specimen [place]forming [place] [address] Narrative CK-MB Reference Range: <6.7Normal 6.7-10.0Borderline >10.0 Abnormal * ECHOCARDIOGRAM REPORT - SCAN (04/20/2017 7:20 AM) * Calcium, Ionized (04/20/2017 5:16 AM) Component Value Ref Range Calcium, Ion 1.10 (L) 1.12 - 1.27 mmol/L pH, Blood 7.44 Specimen [place] [address] * 2D Echo W/Doppler (Sepsis Protocol) (04/19/2017 12:16 PM) Component Value Ref Range Ejection Fraction Specimen Performing Laboratory [facility] ECHO [facility] Narrative Transthoracic Echocardiography Report (TTE) Demographics Patient Name SERGE JENKINS Date of Study 04/19/2017 [id number] Gender Male Visit Number [id number] Race Black [id number] Number [id number] Number Date of Birth1940 Referring Physician Nishant Srivastava Age76 year(s) Cotton Grader Pradeep Crowe [facility] Interpreting [facility] Needs to be Pre Physician Read King Restrepo MD Fellow ASHISH Srivastava Procedure Type of Study TTE procedure:2DECHO W DOPPLER(CW/PW/COLOR) (STAT) Indications:Sepsis protocol. Clinical History HGB 9.6 HCT 29.9 % CKD Diabetes Hyperlipidemia Hypertension Height: 73 inches Weight: 112.49 kg (248 lbs) BSA: 2.36 m^2 BMI: 32.72 kg/m^2 HR: 74 bpm BP: 141/70 mmHg Summary 1. Normal LV size and function. LVEF is > 60%. 2. Diastology: Grade 1 diastolic dysfunction noted. 3. Moderately enlarged RV.Mildly reduced RV function. 4. No significant valvular heart disease. 5. Trace TR. Estimated PASP is 50 + clinically estimated RAP. 6. Small pericardial effusion. 7. Left sided pleural effusion Signature Findings Left Ventricle The left ventricle is chamber size (by vol index ) is normal. Moderate concentric LV hypertrophy. All of the LV segments contract normally . LVEF by Gonzales's method of disk assessment is normal (>60%) . Grade 1 diastolic dysfunction ( impaired relaxation and low-normal LA pressure). Left AtriumLA size is normal . Right VentricleModerately enlarged RV. Mildly reduced RV function Right Atrium RA size is normal. Aortic Valve Mild AoV cusp thickening. Fsmq-ji-egjbqayj AoV cusp calcification. No evidence of aortic regurgitation. No evidence of aortic stenosis. Mitral Valve Normal MV structure. No evidence of mitral regurgitation. Tricuspid ValveA trace of tricuspid regurgitation. Estimated peak systolic PA pressure is 50 + clinically estimated RAP. Pulmonic Valve Normal PV structure and function. PericardiumSmall pericardial effusion is visualized. IVC/SVC/PA/PV/PleuralA left pleural effusion is noted. The estimated RA pressure by IVC dynamics 0-5mmHg . Chambers/Structures Left Atrium LA Volume: 59.9 mlLA Area: 18.82 cm ^2 LA Vol. Index: 25 ml/m^2 Left Ventricle LVIDd: 3.83 cm LVIDs: 2.45 cm LV Septum Diastolic: 1.47 cm LV PW Diastolic: 1.52 cmLV FS: 36 % LVEDV Gonzales's:147 ml LVESV Gonzales's:42.28 mlLVEDVI: 62 ml/m ^2 LVEF Gonzales's: 71.2 %LVESVI: 18 ml /m^2 LVOT Diameter: 2.25 cm Doppler/Quantitative Measurements Aortic Valve Peak Velocity: 1.56 m/sMean Velocity: 1.05 m/s Peak Gradient: 9.7 mmHgMean Gradient: 5.01 mmHg AV Area (continuity): 3.55 cm^2 AV VTI: 29.74 cm AV DVI: 0.89 LVOT Peak Velocity: 1.06 m/s Peak Gradient: 4.47 mmHg Mean Velocity: 0.75 m/s Mean Gradient: 2.64 mmHg LVOT Diameter: 2.25 cmLVOT VTI: 26.6 cm LVOT Area: 3.98 cm^2LVOT SV:105.71 ml LVOT CO: 7.82 l/min LVOT CI: 3.31 l/min/m^2 Tricuspid Valve TR Velocity: 3.04 m/s TR Gradient: 36.92 mmHg Procedure Note Interface, External Ris In - 04/19/2017 7:28 PM ASSOCIATE ACCOUNTANT Transthoracic Echocardiography Report (TTE) Demographics Patient Name SERGE JENKINS Date of Study 04/19/2017 Gender Male Visit Number [id number] Race Black Room Number [id number] Number Date of 1940 Referring Physician Nishant Srivastava Age 76 year(s) Cotton Grader Pradeep Crowe [facility] Interpreting [facility] Needs to be Pre Physician Read King Restrepo MD Fellow ASHISH Srivastava Procedure Type of Study TTE procedure:2DECHO W DOPPLER(CW/PW/COLOR) (STAT) Indications:Sepsis protocol. Clinical History HGB 9.6 HCT 29.9 % CKD Diabetes Hyperlipidemia Hypertension Height: 73 inches Weight: 112.49 kg (248 lbs) BSA: 2.36 m^2 BMI: 32.72 kg/m^2 HR: 74 bpm BP: 141/70 mmHg Summary 1. Normal LV size and function. LVEF is > 60%. 2. Diastology: Grade 1 diastolic dysfunction noted. 3. Moderately enlarged RV.Mildly reduced RV function. 4. No significant valvular heart disease. 5. Trace TR. Estimated PASP is 50 + clinically estimated RAP. 6. Small pericardial effusion. 7. Left sided pleural effusion Signature Findings Left Ventricle The left ventricle is chamber size (by vol index) is normal. Moderate concentric LV hypertrophy. All of the LV segments contract normally . LVEF by Gonzales's method of disk assessment is normal (>60%) . Grade 1 diastolic dysfunction (impaired relaxation and low-normal LA pressure). Left Atrium LA size is normal . Right Ventricle Moderately enlarged RV. Mildly reduced RV function Right Atrium RA size is normal. Aortic Valve Mild AoV cusp thickening. Mbjv-ni-fuqriily AoV cusp calcification. No evidence of aortic regurgitation. No evidence of aortic stenosis. Mitral Valve Normal MV structure. No evidence of mitral regurgitation. Tricuspid Valve A trace of tricuspid regurgitation. Estimated peak systolic PA pressure is 50 + clinically estimated RAP. Pulmonic Valve Normal PV structure and function. Pericardium Small pericardial effusion is visualized. IVC/SVC/PA/PV/Pleural A left pleural effusion is noted. The estimated RA pressure by IVC dynamics 0-5mmHg . Chambers/Structures Left Atrium LA Volume: 59.9 ml LA Area: 18.82 cm^2 LA Vol. Index: 25 ml/m^2 Left Ventricle LVIDd: 3.83 cm LVIDs: 2.45 cm LV Septum Diastolic: 1.47 cm LV PW Diastolic: 1.52 cm LV FS: 36 % LVEDV Gonzales's:147 ml LVESV Gonzales's:42.28 ml LVEDVI: 62 ml/m^2 LVEF Gonzales's: 71.2 % LVESVI: 18 ml/m^2 LVOT Diameter: 2.25 cm Doppler/Quantitative Measurements Aortic Valve Peak Velocity: 1.56 m/s Mean Velocity: 1.05 m/s Peak Gradient: 9.7 mmHg Mean Gradient: 5.01 mmHg AV Area (continuity): 3.55 cm^2 AV VTI: 29.74 cm AV DVI: 0.89 LVOT Peak Velocity: 1.06 m/s Peak Gradient: 4.47 mmHg Mean Velocity: 0.75 m/s Mean Gradient: 2.64 mmHg LVOT Diameter: 2.25 cm LVOT VTI: 26.6 cm LVOT Area: 3.98 cm^2 LVOT SV:105.71 ml LVOT CO: 7.82 l/min LVOT CI: 3.31 l/min/m^2 Tricuspid Valve TR Velocity: 3.04 m/s TR Gradient: 36.92 mmHg * Hemoglobin and hematocrit (04/19/2017 10:33 AM) Component Value Ref Range Hemoglobin 10.0 (L) 13.7 - 17.5 GM/DL Hematocrit 30.9 (L) 40.1 - 51.0 % Specimen Performing Laboratory Blood [address] [address] * Lactic acid, venous, whole blood (04/19/2017 10:33 AM) Only the most recent of 5 results within the time period is included. Component Value Ref Range Lactate, Venous 1.0 0.5 - 2.2 mmol/L Specimen Performing Laboratory Blood [address] [address] Narrative Effective 08/23/2015: Units/Reference Range Change New: 0.5-2.2 mmol/LPrevious: 5-20 mg/dL * aPTT (04/19/2017 4:58 AM) Component Value Ref Range PTT 26.7 22.5 - 36.0 seconds Specimen Performing Laboratory Blood [address] [address] Narrative Prior to initiating heparin * Platelet count (04/19/2017 4:58 AM) Component Value Ref Range Platelets 154 150 - 450 K/CU MM Specimen Performing Laboratory Blood [address] [address] Narrative Baseline and daily starting prior to initiation of heparin infusion * ECG 12 lead (04/19/2017 4:11 AM) Only the most recent of 2 results within the time period is included. 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 Ventricular Rate 98 BPM Atrial Rate 98 BPM P-R Interval 192 ms QRS Duration 66 ms Q-T Interval 330 ms QTC Calculation(Bazett) 421 ms P [place] 48 degrees R [place] 63 degrees T [place] 84 degrees Normal sinus rhythm Normal ECG When compared with ECG of 18-APR-2017 15:52, Premature atrial complexes are no longer Present T wave inversion no longer evident in Inferior leads T wave inversion no longer evident in Lateral leads Confirmed by MD WYNNE PABLO ([id number]) on 04/20/2017 12:52:47 PM * Urine culture (04/18/2017 10:39 PM) Component Value Ref Range Result No growth Specimen Performing Laboratory Urine - Urine, [address] [address] * Urinalysis w/ Microscopic (04/18/2017 10:38 PM) Component Value Ref Range Color, UA Yellow Clarity, UA Hazy Specific [place], UA 1.011 1.001 - 1.035 pH, UA 5.5 5.0 - 8.0 Protein, UA 50 mg/dL (A) Negative Glucose, UA Negative Negative Ketones, UA Negative Negative Bilirubin, UA Negative Negative Blood, UA Small (A) Negative Nitrite, UA Negative Negative Leukocytes, UA Moderate (A) Negative Urobilinogen, UA 0.2 0.2 - 1.0 mg/dL RBC, UA 26 /HPF WBC, UA 73 /HPF Mucus Rare Squam Epithel, UA <1 /HPF Yeast Few Specimen Source Urine, [place] Specimen Performing Laboratory Urine - Urine, [place] [address] [address] * Blood gas, arterial (04/18/2017 10:37 PM) Component Value Ref Range pH, Arterial 7.41 7.35 - 7.45 pCO2, Arterial 37 35 - 45 mmHg pO2, Arterial 65 (L) 80 - 90 mmHg O2 Sat, Arterial 92.6 (L) 96.0 - 97.0 % HCO3, Arterial 23 21 - 29 mmol/L Base Excess, Arterial -1.2 -2.0 - 3.0 mmol/L Patient Temperature 37.4 C FIO2 60.0 % Specimen Performing Laboratory Blood, Arterial [address] [address] * ED ECG Interpretation (04/18/2017 6:52 PM) Narrative Peter Wren MD 04/18/20176:52 PM ECG/EKG Interpretation Date/Time: 04/18/2017 3:57 PM Performed by: PETER WREN Authorized by: PETER WREN The ECG was interpreted by ED physician. This ECG was not compared with previous ECG(s).The ECG is interpreted as sinus tachycardia. Rate is tachycardic. Heart rate is 114 BPM. Conduction: conduction normal. ST depression in lead(s) V6, V5 and V4. Clinical Impression: abnormal ECGECG reviewed and does not meet STEMI criteria. Patient tolerance: Patient tolerated the procedure well with no immediate complications * Critical Care (04/18/2017 6:52 PM) Narrative Peter Wren MD 04/18/20176:52 PM Critical Care Performed by: PETER WREN Authorized by: PETER WREN Total critical care time: 45 minutes Critical care time was exclusive of separately billable procedures and treating other patients. Critical care was necessary to treat or prevent imminent or life-threatening deterioration of the following conditions: respiratory failure and sepsis. Critical care was time spent personally by me on the following activities: blood draw for specimens, development of treatment plan with patient or surrogate, discussions with primary provider, evaluation of patient's response to treatment, examination of patient, obtaining history from patient or surrogate, ordering and performing treatments and interventions, ordering and review of laboratory studies, ordering and review of radiographic studies, pulse oximetry, re-evaluation of patient's condition and review of old charts. * Rapid CK-MB (04/18/2017 3:41 PM) Component Value Ref Range Rapid CKMB 3.7 0.0 - 4.3 ng/mL Specimen Performing Laboratory Blood [facility], [facility] , [facility] [address] [place] [address] * Rapid Troponin I (04/18/2017 3:40 PM) Component Value Ref Range Rapid Troponin I 0.12 (H) <0.05 ng/mL Specimen Performing Laboratory Blood [facility], [facility] [address] [place] [address] * Blood culture #2 (04/18/2017 3:31 PM) Only the most recent of 2 results within the time period is included. Component Value Ref Range Result No growth in 5 days Specimen Performing Laboratory Blood - Arm, Right [address] [address] * Rapid influenza A&B screen (04/18/2017 3:31 PM) Component Value Ref Range Rapid Influenza A Antigen Positive (A) Negative, Inconclusive Rapid influenza B Antigen Negative Negative, Inconclusive Specimen Performing Laboratory Nasal - Nasopharyngeal [facility], Swab [facility] [address] [place] [address] * Comprehensive metabolic panel (04/18/2017 3:30 PM) Component Value Ref Range Protein, Total 8.1 6.0 - 8.5 gm/dL Albumin 3.9 3.5 - 5.0 g/dL Alkaline Phosphatase 91 30 - 115 U/L Total Bilirubin 0.7 0.1 - 1.2 mg/dL Sodium 145 135 - 148 meq/L Potassium 4.0 3.6 - 5.5 meq/L Chloride 107 (H) 98 - 106 meq/L CO2 19 (L) 24 - 32 meq/L BUN 44 (H) 10 - 26 mg/dL Creatinine 2.23 (H) 0.50 - 1.20 mg/dL Glucose 173 (H) 70 - 110 mg/dL Calcium 8.9 8.5 - 10.5 mg/dL AST 28 5 - 40 U/L ALT 45 5 - 50 U/L EGFR 35Comment: ESTIMATED GFR IS NOT ACCURATE mL/min/1.73 sq m CREATININE CLEARANCE IN PREDICTING GLOMERULAR FILTRATION RATE. ESTIMATED GFR IS NOT APPLICABLE FOR DIALYSIS PATIENTS. Specimen Performing Laboratory Blood [facility] [address] [place] [address] after 07/28/2016
--- OUTSIDE RECORDS SUMMARY | 2017-07-29 11:27 | XMS REPORT | Continuity of Care Document ---
Author Author [facility] Organization [facility] Address [address] [place] [address] Phone Unavailable Care Team Providers Care Rip/Mould Operator Name Role Phone NO, PCP PCP Unavailable Insurance Providers Guarantor Serge Jenkins Address [address] [place] [address] Email Payer [employer] Medicare Advantage Policy Number [id number] Subscriber's Name Serge Jenkins Relationship 18 Self / Same As Patient Effective Date 17 Advance Directives Directive Response Recorded Date/Time Does the patient have an advance directive? Yes 07/09/17 11:18pm If yes, is advance directive on file with [facility]? No 07/09/17 11:18pm If not on file with [facility] will patient provide a copy? No 07/09/17 11:18pm Do you have a Directive to Physician? Yes 07/09/17 5:17pm Do you have a Medical Power of Buffing Machine Tender? No 07/09/17 5:17pm Do you have an out of hospital Do Not Resuscitate Order? No 07/09/17 5:17pm Do you have any special needs we should be aware of? No 07/09/17 5:17pm Do you have a support person here with you today? Yes 03/21/18 5:17pm Did patient receive Notice of Privacy Practices? Yes 07/09/17 5:17pm Did patient receive patient rights and responsibilities? Yes 07/09/17 5:17pm Problems Medical Problem Onset Date Status Dehydration Unknown UTI (urinary tract infection) Unknown Medications Current Home Medications Medication Dose Units Route Directions Days Qty Instructions Start Date Acyclovir 200 Mg Capsule 400 Mg Oral Daily 30 Cap Alprazolam 1 Mg Tablet 2 Mg Oral Bedtime 30 Tab Aspirin (Aspir 81) 81 Mg Tablet.dr 81 Mg Oral Daily Carvedilol 12.5 Mg Tablet 25 Mg Oral Twice A Day 60 Tab Diphenoxylate Hcl/Atropine (Diphenoxylate-Atropine Tablet) 1 Each Tablet Gabapentin 300 Mg Capsule 600 Mg Oral Bedtime 60 Cap Hydralazine Hcl 25 Mg Tab 50 Mg Oral Twice A Day Labetalol Hcl 100 Mg Tablet 300 Mg Oral Twice A Day 30 Tab Lisinopril 10 Mg Tablet 40 Mg Oral Daily 30 Tab Nifedipine (Nifedipine Er) 30 Mg Tab.er.24 30 Mg Oral Daily Tamsulosin Hcl (Flomax*) 0.4 Mg Cap 0.8 Mg Oral Daily 30 Cap Terazosin Hcl 5 Mg Capsule 5 Mg Oral Twice A Day 30 Cap Torsemide 10 Mg Tablet 20 Mg Oral Twice A Day Social History Social History Problem Response Recorded Date/Time Onset Date Status Hx Psychiatric Problems No 07/09/2017 11:18pm Not Applicable Not Applicable Smoking Status Start Date Stop Date Current some day smoker Hospital Discharge Instructions No hospital discharge instruction information available. Plan of Care Discharge Date 07/10/17 3:54pm Disposition HOME, SELF-CARE Instructions/Education Provided Dehydration - Adult Urinary Tract Infection - Men Prescriptions See Medication Section Functional Status Query Response Date Recorded Assistive Devices None July 09, 2017 11:23pm Ambulation Ability Independent July 09, 2017 11:23pm Toileting Ability Independent July 09, 2017 11:23pm Allergies, Adverse Reactions, Alerts Allergen Type Severity Reaction Status Last Updated GLIBURIDE Allergy Mild WEAKNESS Active 07/09/17 Immunizations No immunization information available. Vital Signs Acute Vital Signs Vital Response Date/Time Temperature (Fahrenheit) 98.7 degrees F (97.6 - 99.5) 07/10/2017 11:50am Pulse Pulse Rate (adult) 64 bpm (60 - 90) 07/10/2017 11:50am Respiratory Rate 18 bpm (12 - 24) 07/10/2017 11:50am Blood Pressure 197/81 mm Hg 07/10/2017 11:50am Height 6 ft 2 in 07/09/2017 2:43pm Weight 223 lb 07/09/2017 9:00pm Body Mass Index 28.6 kg/m^2 07/09/2017 11:18pm Results Laboratory Results Test Name Result Units Flags Reference Collection Date/Time Result Date/ Time Comments White Blood Count 6.47 x10e3/uL 4.8-10.8 07/10/2017 6:00am 07/10/2017 6 :33am Red Blood Count 3.06 x10e6/uL L 4.3-5.7 07/10/2017 6:00am 07/10/2017 6: 33am Hemoglobin 10.0 g/dL L 14.0-18.0 07/10/2017 6:00am 07/10/2017 6:33am Hematocrit 31.0 % L 38.2-49.6 07/10/2017 6:00am 07/10/2017 6:33am Mean Corpuscular Volume 101.3 fL H 81-99 07/10/2017 6:00am 07/10/2017 6: 33am Mean Corpuscular Hemoglobin 32.7 pg H 28-32 07/10/2017 6:00am 2017 6:33am Mean Corpuscular Hemoglobin Concent 32.3 g/dL 31-35 07/10/2017 6:00am 07/10/2017 6:33am Red Cell Distribution Width 14.9 % H 11.7-14.4 07/10/2017 6:00am 2017 6:33am Platelet Count 229 x10e3/uL 140-360 07/10/2017 6:00am 07/10/2017 6: 33am Neutrophils (%) (Auto) 37.1 % L 38.7-80.0 07/10/2017 6:00am 07/10/2017 6 :33am Lymphocytes (%) (Auto) 34.2 % 18.0-39.1 07/10/2017 6:00am 07/10/2017 6: 33am Monocytes (%) (Auto) 25.3 % H 4.4-11.3 07/10/2017 6:00am 07/10/2017 6: 33am Eosinophils (%) (Auto) 2.6 % 0.0-6.0 07/10/2017 6:00am 07/10/2017 6: 33am Basophils (%) (Auto) 0.3 % 0.0-1.0 07/10/2017 6:00am 07/10/2017 6:33am IM GRANULOCYTES % 0.5 % 0.0-1.0 07/10/2017 6:00am 07/10/2017 6:33am Neutrophils # (Auto) 2.4 2.1-6.9 07/10/2017 6:00am 07/10/2017 6:33am Lymphocytes # (Auto) 2.2 1.0-3.2 07/10/2017 6:00am 07/10/2017 6:33am Monocytes # (Auto) 1.6 H 0.2-0.8 07/10/2017 6:00am 07/10/2017 6:33am Eosinophils # (Auto) 0.2 0.0-0.4 07/10/2017 6:00am 07/10/2017 6:33am Basophils # (Auto) 0.0 0.0-0.1 07/10/2017 6:00am 07/10/2017 6:33am Absolute Immature Granulocyte (auto 0.03 x10e3/uL 0-0.1 07/10/2017 6: 00am 07/10/2017 6:33am Differential Total Cells Counted 100 07/10/2017 6:00am 07/10/2017 11:45am Neutrophils % (Manual) 42 % 40-74 07/10/2017 6:00am 07/10/2017 11:45am Lymphocytes % (Manual) 36 % 19-48 07/10/2017 6:00am 07/10/2017 11:45am Monocytes % (Manual) 18 % H 3.4-9.0 07/10/2017 6:00am 07/10/2017 11: 45am Eosinophils % (Manual) 3 % 0-7 07/10/2017 6:00am 07/10/2017 11:45am Reactive Lymphocytes 1 07/10/2017 6:00am 07/10/2017 11:45am Platelet Estimate ADEQUATE 07/10/2017 6:00am 07/10/2017 11:45am Platelet Morphology Comment NORMAL 07/10/2017 6:00am 07/10/2017 11: 45am Hypochromasia SLIGHT 07/10/2017 6:00am 07/10/2017 11:45am Anisocytosis SLIGHT 07/10/2017 6:00am 07/10/2017 11:45am Red Cell Morphology Comment NORMAL 07/10/2017 6:00am 07/10/2017 11: 45am Urine Color YELLOW YELLOW 07/09/2017 3:00pm 07/09/2017 6:36pm Urine Clarity CLOUDY H CLEAR 07/09/2017 3:00pm 07/09/2017 6:36pm Urine Specific [place] 1.015 1.010-1.025 07/09/2017 3:00pm 2017 6:36pm Urine pH 5 5 - 7 07/09/2017 3:00pm 07/09/2017 6:36pm Urine Leukocyte Esterase 2+ H NEGATIVE 07/09/2017 3:00pm 07/09/2017 6: 36pm Urine Nitrite NEGATIVE NEGATIVE 07/09/2017 3:00pm 07/09/2017 6:36pm Urine Protein 2+ H NEGATIVE 07/09/2017 3:00pm 07/09/2017 6:36pm Urine Glucose (UA) NEGATIVE NEGATIVE 07/09/2017 3:00pm 07/09/2017 6: 36pm Urine Ketones NEGATIVE NEGATIVE 07/09/2017 3:00pm 07/09/2017 6:36pm Urine Urobilinogen 0.2 mg/dL 0.2 - 1 07/09/2017 3:00pm 07/09/2017 6: 36pm Urine Bilirubin NEGATIVE NEGATIVE 07/09/2017 3:00pm 07/09/2017 6: 36pm Urine Blood TRACE H NEGATIVE 07/09/2017 3:00pm 07/09/2017 6:36pm Urine WBC >50 /HPF H 0-5 07/09/2017 3:00pm 07/09/2017 6:56pm Urine RBC 6-10 /HPF H 0-5 07/09/2017 3:00pm 07/09/2017 6:56pm Urine Bacteria MODERATE /HPF H NONE 07/09/2017 3:00pm 07/09/2017 6:56pm Urine Epithelial Cells MANY /LPF NONE 07/09/2017 3:00pm 07/09/2017 6: 56pm Sodium Level 143 mmol/L 136-145 07/10/2017 6:00am 07/10/2017 6:55am Potassium Level 4.2 mmol/L 3.5-5.1 07/10/2017 6:00am 07/10/2017 6:55am Chloride Level 111 mmol/L H 98-107 07/10/2017 6:00am 07/10/2017 6:55am Carbon Dioxide Level 22 mmol/L 22-29 07/10/2017 6:00am 07/10/2017 6: 55am Anion Gap 14.2 mmol/L 8-16 07/10/2017 6:00am 07/10/2017 6:55am Blood Urea Nitrogen 59 mg/dL H 7-07/10/2017 6:00am 07/10/2017 6:55am Creatinine 2.44 mg/dL H 0.72-1.25 07/10/2017 6:00am 07/10/2017 6:55am BUN/Creatinine Ratio 24 6-07/10/2017 6:00am 07/10/2017 6:55am Estimat Glomerular Filtration Rate 31 ML/MIN L 60- 07/10/2017 6:00am 6:55am Ranges were taken from the National Kidney Disease Education Program and the National [employer] literature. Reference ranges: 60 or greater: Normal 16-59 (for 3 consecutive months): Chronic kidney disease 15 or less: Kidney failure Glucose Level 142 mg/dL H 74-118 07/10/2017 6:00am 07/10/2017 6:55am Calcium Level 9.3 mg/dL 8.4-10.2 07/10/2017 6:00am 07/10/2017 6:55am Bedside Glucose 112 mg/dL 70-120 07/10/2017 3:28pm 07/10/2017 3:52pm Meter ID: [id number] Phosphorus Level 3.5 MG/DL 2.3-4.7 07/10/2017 6:00am 07/10/2017 6:55am Magnesium Level 2.0 MG/DL 1.3-2.1 07/10/2017 6:00am 07/10/2017 6:55am Total Bilirubin 0.3 mg/dL 0.2-1.2 07/10/2017 6:00am 07/10/2017 6:55am Aspartate Amino Transf (AST/SGOT) 14 IU/L 5-34 07/10/2017 6:00am 2017 6:55am Alanine Aminotransferase (ALT/SGPT) 27 IU/L 0-55 07/10/2017 6:00am 6:55am Total Protein 6.6 g/dL 6.5-8.1 07/10/2017 6:00am 07/10/2017 6:55am Albumin 2.8 g/dL L 3.5-5.0 07/10/2017 6:00am 07/10/2017 6:55am Globulin 3.8 g/dL H 2.3-3.5 07/10/2017 6:00am 07/10/2017 6:55am Albumin/Globulin Ratio 0.7 L 0.8-2.0 07/10/2017 6:00am 07/10/2017 6: 55am Alkaline Phosphatase 61 IU/L 40-150 07/10/2017 6:00am 07/10/2017 6: 55am B-Type Natriuretic Peptide 224.9 pg/mL H 0-100 07/09/2017 3:45pm 2017 5:02pm Troponin I 0.013 ng/mL 0-0.300 07/09/2017 3:45pm 07/09/2017 5:11pm Thyroid Stimulating Hormone (TSH) 0.669 uIU/mL 0.350-4.940 07/09/2017 3: 45pm 07/09/2017 5:11pm Procedures No procedure information available. Encounters Encounter Location Arrival/Admit Date Discharge/Depart Date Attending Provider Discharged Inpatient (obs) [facility] 07/09/17 7:31pm 3:54pm SHANE FERNANDO MD
--- OUTSIDE RECORDS SUMMARY | 2017-07-29 11:29 | XMS REPORT | Clinical Summary ---
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 difficile diarrhea 04/27/2017 Pericardial effusion 04/27/2017 Bilateral pneumonia 04/27/2017 NSTEMI (non-ST elevated myocardial infarction) ([facility]) 04/19/2017 (HFpEF) heart failure with preserved ejection fraction ([facility]) 04/19/2017 Essential hypertension 04/19/2017 Influenza A 04/18/2017 DM type 2 (diabetes mellitus, type 2) ([facility]) 04/24/2016 Multiple myeloma ([facility]) 04/24/2016 Encounters Date Type Specialty Care Team Description 04/18/2017 [facility] General Internal Medicine Peter Wren, Influenza A (Primary - Encounter MD Dx);Acute on chronic 04/27/2017 Elen Hernandez congestive heart failureOh MD unspecified congestive Daina Yeboah MD heart failure type ([facility]);EDGARD (acute kidney injury) ([facility]);Acute respiratory failure with hypoxia ([facility]);Severe sepsis ([facility]) 04/18/2017 Orders Only General Internal Medicine after [...] Taken Blood Pressure 151/68 04/27/2017 12:18 PM SENIOR SYSTEMS ARCHITECT Pulse 60 04/27/2017 12:18 PM SENIOR SYSTEMS ARCHITECT Temperature 36.2 C (97.2 F) 04/27/2017 12:18 PM SENIOR SYSTEMS ARCHITECT Respiratory Rate 19 04/27/2017 12:18 PM SENIOR SYSTEMS ARCHITECT Oxygen Saturation 97% 04/27/2017 12:18 PM SENIOR SYSTEMS ARCHITECT Inhaled Oxygen - - Concentration Weight 105.3 kg (232 lb 3.2 oz) 04/27/2017 6:00 AM SENIOR SYSTEMS ARCHITECT Height 185.4 cm (6' 1") 04/18/2017 3:03 PM SENIOR SYSTEMS ARCHITECT Body Mass Index 30.64 04/27/2017 6:00 AM SENIOR SYSTEMS ARCHITECT Plan of Treatment Not on file Procedures Procedure Name Priority Date/Time Associated Diagnosis Comments CRITICAL CARE Routine 04/18/2017 Results for this 6:52 PM SENIOR SYSTEMS ARCHITECT procedure are in the results section. after 07/28/2016 Results * RHYTHM STRIP - SCAN (04/29/2017 11:10 AM) * POC-Glucose meter (04/27/2017 4:38 PM) Only the most recent of 38 results within the time period is included. Component Value Ref Range POC-Glucose Meter 208 (H)Comment: TESTED AT [address] 70 - 110 mg /dL [facility] [address] Specimen Performing Laboratory Blood [facility] [address] [address] * XR chest 1 view portable / [...] MD Report Verified Date/Time:04/27/2017 10:19:00 Reading Location: [address] Ortho Consult Reading Room Procedure Note Interface, External Ris In - 04/27/2017 10:21 AM SENIOR SYSTEMS ARCHITECT FINAL REPORT CHEST ONE VIEW HISTORY: Pleural [...] Report Verified Date/Time: 04/27/2017 10:19:00 Reading Location: [address] Ortho Consult Reading Room * CBC [...] 1 % Granulocytes-Relative Specimen Performing Laboratory Blood [address] [address] * CBC with platelet count + automated diff (04/27/2017 5:39 AM) Only the most recent of 5 results within the time period is included. Specimen Performing Laboratory Blood Narrative The following orders were created for panel order CBC with platelet count + automated diff. Procedure Abnormality Status --------- - ------ CBC with platelet count ...[[id number]]AbnormalFinal result Please view results for these tests on the individual orders. * B-type Natriuretic Factor (BNP) (04/27/2017 5:39 AM) Only the most recent of 3 results within the time period is included. Component Value Ref Range BNP 200 (H) 0 - 100 pg/mL Specimen Performing Laboratory Blood [address] [place] [address] * Basic Metabolic Panel (04/27/2017 5:39 AM) [...] FOR DIALYSIS PATIENTS. Specimen Performing Laboratory Blood [address] [address] * Magnesium (04/26/2017 5:21 AM) Only the most recent of 7 results within the time period is included. Component Value Ref Range Magnesium 2.2Comment: Specimen slightly hemolyzed 1.6 - 2.6 mg/dL Specimen Performing Laboratory Blood [address] [address] * CBC (hemogram only) (04/24/2017 4:39 AM) [...] Specimen Performing Laboratory Blood - Arm, Right [address] [address] * TSH/Free T4 If Indicated (04/23/2017 3:43 AM) Component Value Ref Range TSH 0.70 0.35 - 4.94 uIU/mL Specimen Performing Laboratory Blood - Hand, [address] [address] * Phosphorus (04/23/2017 3:43 AM) Component Value Ref Range Phosphorus 3.1 2.3 - 4.7 mg/dL Specimen Performing Laboratory Blood - Hand, [address] [address] * Hemoglobin A1c (04/23/2017 3:43 AM) Component Value Ref Range Hemoglobin A1C 5.9 4.3 - 6.1 % Specimen Performing Laboratory Blood - Hand, [place] [address] * Hepatic function panel (04/23/2017 3:43 AM) [...] U/L Specimen Performing Laboratory Blood - Hand, [address] [address] * Lipid panel (04/23/2017 3:43 AM) Component Value Ref Range Triglycerides 179 mg/dL Cholesterol 140 mg/dL HDL 30 mg/dL LDL Calculated 74 mg/dL Specimen Performing Laboratory Blood - Hand, [address] [address] Narrative Triglyceride Reference Range: Low Risk <150 [id number] High Risk 200-499 Very High Risk>=500 Cholesterol Reference Range: Low Risk <200 [id number] High Risk>240 HDL Cholesterol Reference Range: Low Risk >=60 High Risk <40 LDL Cholesterol Reference Range: Optimal<100 Near Caaeuoj311-022 Yeftasjvhn593-722 Nlzi139-246 Very High >=190 * Strep pneumoniae antigen (04/22/2017 7:29 PM) Component Value Ref Range Strep pneumoniae Antigen Presumptive negative for pneumococcal pneumonia - Presumptive negative for see comment pneumococcal pneumonia - see comment, Presumptive negative for pneumococcal meningitis - see comment Specimen Performing Laboratory Urine - Urine, [facility] Unspecified Source [address] [place] [address] Narrative Presumptive negative for pneumococcal pneumonia, suggesting [...] Specimen Performing Laboratory Urine - Urine, [place] [address] * Occult blood, stool (04/22/2017 11:41 AM) Component Value Ref Range Occult blood Positive (A) Negative Specimen [place] [address] * Clostridium difficile Toxin PCR (04/22/2017 10:47 AM) Component Value Ref Range C.Diff Toxin, PCR Detected (A) Not Detected Specimen [place] [address] Narrative This qualitative real-time polymerase chain reaction [...] rods Specimen Performing Laboratory Sputum - Expectorated [address] [address] * CT chest without IV contrast (04/21/2017 [...] MD Report Verified Date/Time:04/21/2017 10:06:22 Reading Location: [facility] B1 C013Y CT Body Reading Room Procedure Note Interface, External Ris In - 04/21/2017 10:08 AM SENIOR SYSTEMS ARCHITECT FINAL REPORT TECHNIQUE: CT scan of the [...] Report Verified Date/Time: 04/21/2017 10:06:22 Reading Location: [address] Body Reading Room * Manual Differential (04/21/2017 4:53 AM) Only the most recent of 2 results within the time period is included. Specimen Performing Laboratory Blood [address] [address] * Vancomycin level, trough (04/20/2017 4:57 PM) Component Value Ref Range Vancomycin Tr 11.8 10.0 - 20.0 ug/mL Specimen Performing Laboratory Blood [address] [address] Narrative Draw trough level prior to dose administration. * Troponin I (04/20/2017 8:36 AM) Only the most recent of 5 results within the time period is included. Component Value Ref Range Troponin I 3.04 (HH) 0.00 - 0.03 ng/mL Specimen [place] [address] Narrative Troponin I (TnI) levels must be [...] Index 1.5 % Specimen [place] [address] Narrative CK-MB Reference Range: <6.7Normal 6.7-10.0Borderline >10.0 Abnormal * ECHOCARDIOGRAM REPORT - SCAN (04/20/2017 7:20 AM) * Calcium, Ionized (04/20/2017 5:16 AM) Component Value Ref Range Calcium, Ion 1.10 (L) 1.12 - 1.27 mmol/L pH, Blood 7.44 Specimen [place] [address] * 2D Echo W/Doppler (Sepsis Protocol) (04/19/2017 12:16 PM) Component Value Ref Range Ejection Fraction Specimen Performing Laboratory [facility] Narrative Transthoracic Echocardiography Report (TTE) Demographics Patient Name SERGE JENKINS Date of Study 04/19/2017 [id number] Gender Male Visit Number [id number] Race Black [id number] Number [id number] Number Date of Birth1940 Referring Physician Nishant Srivastava Age76 year(s) Asian Studies Program Chair Pradeep Crowe [facility] Interpreting [facility] Needs to be Pre Physician Read [...] normal. Aortic Valve Mild AoV cusp thickening. [id number] AoV cusp calcification. No evidence of aortic [...] External Ris In - 04/19/2017 7:28 PM SENIOR SYSTEMS ARCHITECT Transthoracic Echocardiography Report (TTE) Demographics Patient Name SERGE JENKINS Date of Study 04/19/2017 Gender Male Visit Number [id number] Race Black Room Number [id number] Number Date of 1940 Referring Physician Nishant Srivastava Age 76 year(s) Asian Studies Program Chair Pradeep Crowe RDJOHN Interpreting [facility] Needs to [...] normal. Aortic Valve Mild AoV cusp thickening. [id number] AoV cusp calcification. No evidence of aortic [...] - 51.0 % Specimen Performing Laboratory Blood [address] [address] * Lactic acid, venous, whole blood (04/19/2017 10:33 AM) Only the most recent of 5 results within the time period is included. Component Value Ref Range Lactate, Venous 1.0 0.5 - 2.2 mmol/L Specimen Performing Laboratory Blood [address] [address] Narrative Effective 08/23/2015: Units/Reference Range Change New: 0.5-2.2 mmol/LPrevious: 5-20 mg/dL * aPTT (04/19/2017 4:58 AM) Component Value Ref Range PTT 26.7 22.5 - 36.0 seconds Specimen Performing Laboratory Blood [address] [address] Narrative Prior to initiating heparin * Platelet count (04/19/2017 4:58 AM) Component Value Ref Range Platelets 154 150 - 450 K/CU MM Specimen Performing Laboratory Blood [address] [address] Narrative Baseline and daily starting prior to initiation of heparin infusion * ECG 12 lead (04/19/2017 4:11 AM) Only the most recent of 2 results within the time period is included. Specimen Performing Laboratory [facility] Narrative Ventricular Rate 98 BPM Atrial Rate 98 BPM P-R Interval 192 ms QRS Duration 66 ms Q-T Interval 330 ms QTC Calculation(Bazett) 421 ms P [place] 48 degrees R [place] 63 degrees T [place] 84 degrees Normal sinus rhythm Normal ECG When compared with ECG of 18-APR-2017 15:52, Premature atrial complexes are no longer Present T wave inversion no longer evident in Inferior leads T wave inversion no longer evident in Lateral leads Confirmed by MD WYNNE PABLO ([id number]) on 04/20/2017 12:52:47 PM Procedure Note Interface, External Ris In - 04/20/2017 12:52 PM SENIOR SYSTEMS ARCHITECT Ventricular Rate 98 BPM Atrial Rate 98 BPM P-R Interval 192 ms QRS Duration 66 ms Q-T Interval 330 ms QTC Calculation(Bazett) 421 ms P [place] 48 degrees R [place] 63 degrees T [place] 84 degrees Normal sinus rhythm Normal ECG [...] growth Specimen Performing Laboratory Urine - Urine, [address] [address] * Urinalysis w/ Microscopic (04/18/2017 10:38 PM) Component Value Ref Range Color, UA Yellow Clarity, UA Hazy Specific [place], UA 1.011 1.001 - 1.035 pH, UA [...] Specimen Performing Laboratory Urine - Urine, [place] [address] [address] * Blood gas, arterial (04/18/2017 10:37 PM) [...] 60.0 % Specimen Performing Laboratory Blood, Arterial [address] [address] * ED ECG Interpretation (04/18/2017 6:52 PM) [...] - 4.3 ng/mL Specimen Performing Laboratory Blood [facility], [facility] , [facility] [address] [place] [address] * Rapid Troponin I (04/18/2017 3:40 PM) Component Value Ref Range Rapid Troponin I 0.12 (H) <0.05 ng/mL Specimen Performing Laboratory Blood [facility], [facility] , [facility] [address] [place] [address] * Blood culture #2 (04/18/2017 3:31 PM) Only the most recent of 2 results within the time period is included. Component Value Ref Range Result No growth in 5 days Specimen Performing Laboratory Blood - Arm, Right [address] [address] * Rapid influenza A&B screen (04/18/2017 3:31 PM) Component Value Ref Range Rapid Influenza A Antigen Positive (A) Negative, Inconclusive Rapid influenza B Antigen Negative Negative, Inconclusive Specimen Performing Laboratory Nasal - Nasopharyngeal [facility], Swab [facility] [address] [place] [address] * Comprehensive metabolic panel (04/18/2017 3:30 PM) [...] DIALYSIS PATIENTS. Specimen Performing Laboratory Blood [facility] [address] [place] [address] after 07/28/2016
[2017-07-29] MEDS ORDERED: LANTUS 3ML100 UNITS/ SC (11:53)
[2017-07-29] MEDS ORDERED: AUGMENTIN 500-1 EACH PO (11:53)
--- NOTE | 2017-07-29 13:25 | Diagnostic Imaging Report ---
PROCEDURE:SHOULDER RIGHT COMPLETE TECHNIQUE:Internal and external rotation AP views right shoulder on 3 radiographs INDICATION:Pain after fall COMPARISON:None. FINDINGS: Right shoulder and regional skeleton are intact and in anatomic alignment. Mild degenerative changes along the inferior margin of the acromion and acromioclavicular joint. CONCLUSION: No evidence of acute traumatic injury. Dictated by: Gurjit Villeda M.D. on 07/29/2017 at 13:26 Electronically approved by: Gurjit Villeda M.D. on 07/29/2017 at 13:26
--- NOTE | 2017-07-29 13:26 | Diagnostic Imaging Report ---
PROCEDURE:RIBS UNILAT W/CXR TECHNIQUE:PA chest; AP and oblique views right ribs are 5 radiographs INDICATION:Right chest pain status post fall COMPARISON:None. FINDINGS: Lungs are clear and symmetrically inflated. No pleural effusions. Mild cardiomegaly with normal central vasculature. Intact skeleton. Mild multilevel degenerative disc disease not unexpected for patient age. CONCLUSION: Mild cardiomegaly without evidence of acute traumatic injury. Dictated by: Gurjit Villeda M.D. on 07/29/2017 at 13:27 Electronically approved by: Gurjit Villeda M.D. on 07/29/2017 at 13:27
--- NOTE | 2017-07-29 13:30 | Diagnostic Imaging Report ---
Examination: CT BRAIN WITHOUT CONTRAST History:Unsteady gait. Dizziness. Head injury. Headache. Comparison studies:None Technique: Axial images were obtained from the skull base to the vertex. Coronal and sagittal images reconstructed from the axial data. Intravenous contrast: None Findings: Scalp: No abnormalities. Bones: No fractures, blastic or lytic lesions. Brain sulci: Mild volume loss for age. Ventricles: No hydrocephalus. Extra-axial space: No abnormalities. Parenchyma: There are subtle confluent areas of hypoattenuation in the periventricular and subcortical white matter, nonspecific. No masses, hemorrhage, or acute or chronic cortical based vascular insults.. Sellar/suprasellar region: No abnormalities. Craniocervical junction: Patent foramen magnum. No Chiari one malformation. Incidental findings: Atherosclerotic calcification of the cavernous and supraclinoid internal carotid arteries. Impression: 1. No acute intracranial abnormalities. 2. Mild chronic microvascular ischemic change and mild volume loss. Signed by: Dr. Carly Carey M.D. on 07/29/2017 1:26 PM
[2017-07-29 14:25] LABS: BASOPHILS % 0.2 % (0.0-1.0); EOSINOPHILS # (AUTO) 0.1 (0.0-0.4); EOSINOPHILS % 1.5 % (0.0-6.0); HEMATOCRIT 38.5 % (38.2-49.6); HEMOGLOBIN 12.6 g/dL (14.0-18.0); LYMPHOCYTES # (AUTO) 2.2 (1.0-3.2); MEAN CORPUSCULAR HEMOGLOBIN 32.2 pg (28-32); MEAN CORPUSCULAR HGB CONC 32.7 g/dL (31-35); MEAN CORPUSCULAR VOLUME 98.5 fL (81-99); MONOCYTES # (AUTO) 2.2 (0.2-0.8); MONOCYTES % 24.2 % (4.4-11.3); NEUTROPHILS # (AUTO) 4.3 (2.1-6.9); NEUTROPHILS % 48.3 % (38.7-80.0); PLATELET COUNT 145 x10e3/uL (140-360); RED BLOOD COUNT 3.91 x10e6/uL (4.3-5.7)
[2017-07-29 14:44] LABS: ALBUMIN 3.2 g/dL (3.5-5.0); ALBUMIN/GLOBULIN RATIO 0.6 (0.8-2.0); ANION GAP 16.5 mmol/L (8-16); CALCIUM 9.3 mg/dL (8.4-10.2); CREATININE, SERUM 2.72 mg/dL (0.72-1.25); PHOSPHORUS 3.9 MG/DL (2.3-4.7); POTASSIUM 4.5 mmol/L (3.5-5.1)
[2017-07-29 15:07] LABS: THYROID STIMULATING HORMONE 1.062 uIU/mL (0.350-4.940)
[2017-07-29] MEDS ORDERED: HYDRALAZINE HCL 20 MG/ML VIAL IV ONE (15:30)
[2017-07-29 15:35] LABS: EOSINOPHILS % (MANUAL) 2 % (0-7); LYMPHOCYTES % (MANUAL) 33 % (19-48); MONOCYTES % (MANUAL) 13 % (3.4-9.0); NEUTROPHILS % (MANUAL) 52 % (40-74); NUCLEATED RED BLOOD CELLS 7; PLATELET ESTIMATE ADEQUATE; PLATELET MORPHOLOGY COMMENT MODERATE LARGE; RBC MORPHOLOGY COMMENT NORMAL
[2017-07-29] MEDS ORDERED: SODIUM CHLORIDE FLUSH 10 ML SYR INJ PRN (15:45)
[2017-07-29] MEDS ORDERED: ONDANSETRON HCL INJ 2 MG/ML VIAL IV PRN (15:45)
[2017-07-29] MEDS ORDERED: HYDRALAZINE HCL 20 MG/ML VIAL IV PRN (15:45)
--- OUTSIDE RECORDS SUMMARY | 2017-07-29 15:50 | XMS REPORT | Clinical Summary ---
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 difficile diarrhea 04/27/2017 Pericardial effusion 04/27/2017 Bilateral pneumonia 04/27/2017 NSTEMI (non-ST elevated myocardial infarction) ([facility]) 04/19/2017 (HFpEF) heart failure with preserved ejection fraction ([facility]) 04/19/2017 Essential hypertension 04/19/2017 Influenza A 04/18/2017 DM type 2 (diabetes mellitus, type 2) ([facility]) 04/24/2016 Multiple myeloma ([facility]) 04/24/2016 Encounters Date Type Specialty Care Team Description 04/18/2017 [facility] General Internal Medicine Peter Wren, Influenza A (Primary - Encounter MD Dx);Acute on chronic 04/27/2017 Elen Hernandez congestive heart failureOh MD unspecified congestive Daina Yeboah MD heart failure type ([facility]);EDGARD (acute kidney injury) ([facility]);Acute respiratory failure with hypoxia ([facility]);Severe sepsis ([facility]) 04/18/2017 Orders Only General Internal Medicine after [...] Taken Blood Pressure 151/68 04/27/2017 12:18 PM REIMBURSEMENT AUDITOR Pulse 60 04/27/2017 12:18 PM REIMBURSEMENT AUDITOR Temperature 36.2 C (97.2 F) 04/27/2017 12:18 PM REIMBURSEMENT AUDITOR Respiratory Rate 19 04/27/2017 12:18 PM REIMBURSEMENT AUDITOR Oxygen Saturation 97% 04/27/2017 12:18 PM REIMBURSEMENT AUDITOR Inhaled Oxygen - - Concentration Weight 105.3 kg (232 lb 3.2 oz) 04/27/2017 6:00 AM REIMBURSEMENT AUDITOR Height 185.4 cm (6' 1") 04/18/2017 3:03 PM REIMBURSEMENT AUDITOR Body Mass Index 30.64 04/27/2017 6:00 AM REIMBURSEMENT AUDITOR Plan of Treatment Not on file Procedures Procedure Name Priority Date/Time Associated Diagnosis Comments CRITICAL CARE Routine 04/18/2017 Results for this 6:52 PM REIMBURSEMENT AUDITOR procedure are in the results section. after 07/28/2016 Results * RHYTHM STRIP - SCAN (04/29/2017 11:10 AM) * POC-Glucose meter (04/27/2017 4:38 PM) Only the most recent of 38 results within the time period is included. Component Value Ref Range POC-Glucose Meter 208 (H)Comment: TESTED AT [address] 70 - 110 mg /dL [facility] [address] Specimen Performing Laboratory Blood [facility] [address] [address] * XR chest 1 view portable / [...] MD Report Verified Date/Time:04/27/2017 10:19:00 Reading Location: [address] Ortho Consult Reading Room Procedure Note Interface, External Ris In - 04/27/2017 10:21 AM REIMBURSEMENT AUDITOR FINAL REPORT CHEST ONE VIEW HISTORY: Pleural [...] Report Verified Date/Time: 04/27/2017 10:19:00 Reading Location: [address] Ortho Consult Reading Room * CBC [...] 1 % Granulocytes-Relative Specimen Performing Laboratory Blood [address] [address] * CBC with platelet count + automated diff (04/27/2017 5:39 AM) Only the most recent of 5 results within the time period is included. Specimen Performing Laboratory Blood Narrative The following orders were created for panel order CBC with platelet count + automated diff. Procedure Abnormality Status --------- - ------ CBC with platelet count ...[[id number]]AbnormalFinal result Please view results for these tests on the individual orders. * B-type Natriuretic Factor (BNP) (04/27/2017 5:39 AM) Only the most recent of 3 results within the time period is included. Component Value Ref Range BNP 200 (H) 0 - 100 pg/mL Specimen Performing Laboratory Blood [address] [place] [address] * Basic Metabolic Panel (04/27/2017 5:39 AM) [...] FOR DIALYSIS PATIENTS. Specimen Performing Laboratory Blood [address] [address] * Magnesium (04/26/2017 5:21 AM) Only the most recent of 7 results within the time period is included. Component Value Ref Range Magnesium 2.2Comment: Specimen slightly hemolyzed 1.6 - 2.6 mg/dL Specimen Performing Laboratory Blood [address] [address] * CBC (hemogram only) (04/24/2017 4:39 AM) [...] Specimen Performing Laboratory Blood - Arm, Right [address] [address] * TSH/Free T4 If Indicated (04/23/2017 3:43 AM) Component Value Ref Range TSH 0.70 0.35 - 4.94 uIU/mL Specimen Performing Laboratory Blood - Hand, [address] [address] * Phosphorus (04/23/2017 3:43 AM) Component Value Ref Range Phosphorus 3.1 2.3 - 4.7 mg/dL Specimen Performing Laboratory Blood - Hand, [address] [address] * Hemoglobin A1c (04/23/2017 3:43 AM) Component Value Ref Range Hemoglobin A1C 5.9 4.3 - 6.1 % Specimen Performing Laboratory Blood - Hand, [place] [address] * Hepatic function panel (04/23/2017 3:43 AM) [...] U/L Specimen Performing Laboratory Blood - Hand, [address] [address] * Lipid panel (04/23/2017 3:43 AM) Component Value Ref Range Triglycerides 179 mg/dL Cholesterol 140 mg/dL HDL 30 mg/dL LDL Calculated 74 mg/dL Specimen Performing Laboratory Blood - Hand, [address] [address] Narrative Triglyceride Reference Range: Low Risk <150 [id number] High Risk 200-499 Very High Risk>=500 Cholesterol Reference Range: Low Risk <200 [id number] High Risk>240 HDL Cholesterol Reference Range: Low Risk >=60 High Risk <40 LDL Cholesterol Reference Range: Optimal<100 Near [id number] Btkmuwukor345-395 Pgnr655-701 Very High >=190 * Strep pneumoniae antigen (04/22/2017 7:29 PM) Component Value Ref Range Strep pneumoniae Antigen Presumptive negative for pneumococcal pneumonia - Presumptive negative for see comment pneumococcal pneumonia - see comment, Presumptive negative for pneumococcal meningitis - see comment Specimen Performing Laboratory Urine - Urine, [facility] Unspecified Source [address] [place] [id number] Narrative Presumptive negative for pneumococcal pneumonia, suggesting [...] Specimen Performing Laboratory Urine - Urine, [place] [address] * Occult blood, stool (04/22/2017 11:41 AM) Component Value Ref Range Occult blood Positive (A) Negative Specimen [place] [address] * Clostridium difficile Toxin PCR (04/22/2017 10:47 AM) Component Value Ref Range C.Diff Toxin, PCR Detected (A) Not Detected Specimen [place] [address] Narrative This qualitative real-time polymerase chain reaction [...] Value Ref Range Result 2+ Normal respiratory madyosn present Gram Stain Result 2+ White blood cells seen Gram Stain Result 10-15 epithelial cells Gram Stain Result 1+ gram negative rods Specimen Performing Laboratory Sputum - Expectorated [address] [address] * CT chest without IV contrast (04/21/2017 [...] MD Report Verified Date/Time:04/21/2017 10:06:22 Reading Location: [facility] B1 C013Y CT Body Reading Room Procedure Note Interface, External Ris In - 04/21/2017 10:08 AM REIMBURSEMENT AUDITOR FINAL REPORT TECHNIQUE: CT scan of the [...] Report Verified Date/Time: 04/21/2017 10:06:22 Reading Location: [address] Body Reading Room * Manual Differential (04/21/2017 4:53 AM) Only the most recent of 2 results within the time period is included. Specimen Performing Laboratory Blood [address] [address] * Vancomycin level, trough (04/20/2017 4:57 PM) Component Value Ref Range Vancomycin Tr 11.8 10.0 - 20.0 ug/mL Specimen Performing Laboratory Blood [address] [address] Narrative Draw trough level prior to dose administration. * Troponin I (04/20/2017 8:36 AM) Only the most recent of 5 results within the time period is included. Component Value Ref Range Troponin I 3.04 (HH) 0.00 - 0.03 ng/mL Specimen [place] [address] Narrative Troponin I (TnI) levels must be [...] Index 1.5 % Specimen [place] [address] Narrative CK-MB Reference Range: <6.7Normal 6.7-10.0Borderline >10.0 Abnormal * ECHOCARDIOGRAM REPORT - SCAN (04/20/2017 7:20 AM) * Calcium, Ionized (04/20/2017 5:16 AM) Component Value Ref Range Calcium, Ion 1.10 (L) 1.12 - 1.27 mmol/L pH, Blood 7.44 Specimen [place] [address] * 2D Echo W/Doppler (Sepsis Protocol) (04/19/2017 12:16 PM) Component Value Ref Range Ejection Fraction Specimen Performing Laboratory [facility] ECHO [facility] Narrative Transthoracic Echocardiography Report (TTE) Demographics Patient Name SERGE JENKINS Date of Study 04/19/2017 [id number] Gender Male Visit Number [id number] Race Black [id number] Number [id number] Number Date of Birth1940 Referring Physician Nishant Srivastava Age76 year(s) Scale Balancer Pradeep Crowe [facility] Interpreting [facility] Needs to be Pre Physician Read King [...] normal. Aortic Valve Mild AoV cusp thickening. [id number] AoV cusp calcification. No evidence of aortic [...] External Ris In - 04/19/2017 7:28 PM REIMBURSEMENT AUDITOR Transthoracic Echocardiography Report (TTE) Demographics Patient Name SERGE JENKINS Date of Study 04/19/2017 Gender Male Visit Number [id number] Race Black Room Number [id number] Number Date of 1940 Referring Physician Nishant Srivastava Age 76 year(s) Scale Balancer Pradeep Crowe RDJOHN Interpreting [facility] Needs to [...] normal. Aortic Valve Mild AoV cusp thickening. [id number] AoV cusp calcification. No evidence of aortic [...] - 51.0 % Specimen Performing Laboratory Blood [address] [address] * Lactic acid, venous, whole blood (04/19/2017 10:33 AM) Only the most recent of 5 results within the time period is included. Component Value Ref Range Lactate, Venous 1.0 0.5 - 2.2 mmol/L Specimen Performing Laboratory Blood [address] [address] Narrative Effective 08/23/2015: Units/Reference Range Change New: 0.5-2.2 mmol/LPrevious: 5-20 mg/dL * aPTT (04/19/2017 4:58 AM) Component Value Ref Range PTT 26.7 22.5 - 36.0 seconds Specimen Performing Laboratory Blood [address] [address] Narrative Prior to initiating heparin * Platelet count (04/19/2017 4:58 AM) Component Value Ref Range Platelets 154 150 - 450 K/CU MM Specimen Performing Laboratory Blood [address] [address] Narrative Baseline and daily starting prior to initiation of heparin infusion * ECG 12 lead (04/19/2017 4:11 AM) Only the most recent of 2 results within the time period is included. Specimen Performing Laboratory GE [facility]USE Narrative Ventricular Rate 98 BPM Atrial Rate 98 BPM P-R Interval 192 ms QRS Duration 66 ms Q-T Interval 330 ms QTC Calculation(Bazett) 421 ms P [place] 48 degrees R [place] 63 degrees T [place] 84 degrees Normal sinus rhythm Normal ECG When compared with ECG of 18-APR-2017 15:52, Premature atrial complexes are no longer Present T wave inversion no longer evident in Inferior leads T wave inversion no longer evident in Lateral leads Confirmed by MD WYNNE PABLO ([id number]) on 04/20/2017 12:52:47 PM Procedure Note Interface, External Ris In - 04/20/2017 12:52 PM REIMBURSEMENT AUDITOR Ventricular Rate 98 BPM Atrial Rate 98 BPM P-R Interval 192 ms QRS Duration 66 ms Q-T Interval 330 ms QTC Calculation(Bazett) 421 ms P [place] 48 degrees R [place] 63 degrees T [place] 84 degrees Normal sinus rhythm Normal ECG [...] growth Specimen Performing Laboratory Urine - Urine, [address] [address] * Urinalysis w/ Microscopic (04/18/2017 10:38 PM) Component Value Ref Range Color, UA Yellow Clarity, UA Hazy Specific Wilson, UA 1.011 1.001 - 1.035 pH, UA [...] Specimen Performing Laboratory Urine - Urine, [place] [address] [address] * Blood gas, arterial (04/18/2017 10:37 PM) [...] 60.0 % Specimen Performing Laboratory Blood, Arterial [address] [address] * ED ECG Interpretation (04/18/2017 6:52 PM) [...] - 4.3 ng/mL Specimen Performing Laboratory Blood [facility] [address] [place] [address] * Rapid Troponin I (04/18/2017 3:40 PM) Component Value Ref Range Rapid Troponin I 0.12 (H) <0.05 ng/mL Specimen Performing Laboratory Blood [facility] [address] [place] [address] * Blood culture #2 (04/18/2017 3:31 PM) Only the most recent of 2 results within the time period is included. Component Value Ref Range Result No growth in 5 days Specimen Performing Laboratory Blood - Arm, Right [address] [address] * Rapid influenza A&B screen (04/18/2017 3:31 PM) Component Value Ref Range Rapid Influenza A Antigen Positive (A) Negative, Inconclusive Rapid influenza B Antigen Negative Negative, Inconclusive Specimen Performing Laboratory Nasal - Nasopharyngeal [facility], [facility] [address] [place] [address] * Comprehensive metabolic panel (04/18/2017 3:30 PM) [...] DIALYSIS PATIENTS. Specimen Performing Laboratory Blood [facility] [address] [place] [address] after 07/28/2016
[2017-07-29] MEDS ORDERED: LATANOPROST2.5 ML OP (16:42)
[2017-07-29] MEDS ORDERED: SYMBICORT 16010.2 GM IH (16:42)
[2017-07-29] MEDS ORDERED: OXYBUTYNIN CHLOR5 MG PO (16:42)
[2017-07-29] MEDS: SODIUM CHLORIDE 0.9% 1000ML 1,000 ML IV SCH ×2 (17:00→21:20)
[2017-07-29 18:00] VITALS: BP 163/72
[2017-07-29 18:18] VITALS: BP 163/72
[2017-07-29 18:19] VITALS: BP 163/72
[2017-07-29 18:22] VITALS: BP 163/72
[2017-07-29 20:25] VITALS: BP 187/83
[2017-07-29] MEDS ORDERED: ACETAMINOPHEN 325 MG TAB PO PRN (20:45)
[2017-07-29] MEDS ORDERED: DIPHENOXYLATE/ATROPINE TAB PO PRN (21:00)
[2017-07-29] MEDS ORDERED: DEXTROSE 50% SYRINGE 50 ML IV PRN (21:00)
[2017-07-29] MEDS ORDERED: BISACODYL 5 MG TAB EC PO PRN (21:00)
[2017-07-29] MEDS: ACETAMINOPHEN 325 MG TAB PO PRN (21:42)
[2017-07-29] MEDS: INSULIN DETEMIR 100 UNIT/ML PEN SQ SCH (21:45)
[2017-07-29] MEDS: INSULIN REGULAR, HUMAN 100 UNIT/1 ML 3ML VIAL SQ SCH (21:45)
--- NOTE | 2017-07-29 22:00 | History and Physical ---
PRIMARY CARE DOCTOR: Dr. Chacon, [facility] DOCTOR: Dr. Ren MD This is coverage for Dr. Mcclure. HISTORY OF PRESENT ILLNESS: Mr. Jenkins is a pleasant 76-year-old gentleman with extreme dizziness. Patient complained of near syncope. Patient occurrence happened today. It was abrupt in onset and it was unknown what triggered this. There was some prodrome lightheadedness. However, it was quick enough that patient fell towards his bed, but he did bounced and hit furniture next to the bed. He did suffer some right-sided pain from this. Of note, the patient had just come to the emergency room on July 09, 2017 couple of weeks ago for very similar event. At that time, he was sent home, but this time he was recommended for hospital admission. This time in the emergency room right ribs x-ray was unremarkable. Right shoulder x-ray unremarkable. CT of the head with no acute changes, just some mild white matter disease. PAST MEDICAL HISTORY: Reported kidney disease; diabetes; hypertension; dyslipidemia; heart disease that he is not totally sure how to describe, he did state that he had a double heart beat when he was younger longtime ago. MEDICATIONS: Medication list reviewed per electronic record. Some medications include acyclovir, alprazolam, aspirin, Symbicort, carvedilol, diphenoxylate, atropine, gabapentin, hydralazine, insulin glargine, labetalol, latanoprost, lisinopril, nifedipine, oxybutynin, tamsulosin, terazosin, torsemide. ALLERGIES: GLYBURIDE. SOCIAL HISTORY: No active alcohol. He did formally drink heavily, but it was longtime ago. No drugs. He smoked 1 to 3 cigarettes a day for last 16 years, but prior to that he was majority of his life a nonsmoker. 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 FAMILY HISTORY: Noncontributory. REVIEW OF SYSTEMS: GENERAL: No weight changes. OPHTHALMOLOGIC: No double vision. ENT: No dry mouth. ENDOCRINE: No known thyroid disease. PULMONARY: No asthma. CARDIAC: No heart attacks. GI: No constipation. : No blood in urine. NEUROLOGIC: No seizures known. PSYCHIATRIC: No depression. DERMATOLOGIC: No rash. OBJECTIVE: VITAL SIGNS: Afebrile, vital signs noted per electronic record. GENERAL: Calm in bed now, answering questions. HEENT: Normocephalic, atraumatic. NECK: Supple. Throat midline. LUNGS: Bilateral air entry, limited inspiration due to pain. No rhonchi. CARDIOVASCULAR: S1 and S2. No murmurs, rubs, or gallops. ABDOMEN: Soft, nontender. EXTREMITIES: No clubbing, no cyanosis, there is only trace edema. INTEGUMENT: No rash, no purpura. LABS: 61 BUN, 2.7 creatinine. 20 bicarbonate, 4.5 potassium. 9 white count, 39 hematocrit, 145,000 platelets. Albumin is 3.2. Urinalysis with greater than 50 white blood cells per high-powered field. IMPRESSION AND PLAN: 1. Urinary tract infection, greater than 50 white blood cells per high-powered field. 2. Presyncope. 3. Elevated creatinine, chronic versus acute kidney disease. 4. Mild hypoalbuminemia. 5. Smoker. 6. Status post fall and now right-sided pain. 7. Hypertension. 8. Diabetes. 9. Dyslipidemia. 10. Reported double heart beat, borderline first-degree heart block. 11. Obesity. Check orthostatic blood pressures. Get physical therapy and occupational therapy evaluation. Occupational therapy for the shoulder which he says he cannot use right now after the fall. Cardiology consult to evaluate telemetry and to facilitate therapeutic interventions. Check ultrasound of the kidneys to find out why he has the pus in urine again. Follow up closely. Give him hydration as needed. Thank you very much, Dr. Chacon for allowing me and Dr. Mcclure the chance to participate in the care of Mr. Jenkins. Do not hesitate to contact us if we can help in anyway. Job#: [id number]
[2017-07-30] VITALS (10 sets, daily range): BP systolic 102–180; BP diastolic 56–81
[2017-07-30] MEDS: ACETAMINOPHEN 325 MG TAB PO PRN (02:30)
--- NOTE | 2017-07-30 05:52 | Diagnostic Imaging Report ---
EXAM: CHEST SINGLE (PORTABLE), AP 1 view INDICATION: Symptomatic bradycardia COMPARISON: None FINDINGS: LINES/TUBES: None LUNGS: No consolidations or edema. Bibasilar atelectasis. PLEURA: No effusions or pneumothorax. HEART AND MEDIASTINUM: Normal size and contour. BONES AND SOFT TISSUES: No acute findings. IMPRESSION: Bibasilar atelectasis. Signed by: Dr. Valeria Sanabria M.D. on 07/30/2017 5:49 AM
[2017-07-30 06:17] LABS: BASOPHILS % 0.1 % (0.0-1.0); EOSINOPHILS # (AUTO) 0.1 (0.0-0.4); EOSINOPHILS % 1.3 % (0.0-6.0); HEMATOCRIT 32.8 % (38.2-49.6); HEMOGLOBIN 10.9 g/dL (14.0-18.0); LYMPHOCYTES # (AUTO) 2.8 (1.0-3.2); LYMPHOCYTES % 33.3 % (18.0-39.1); MEAN CORPUSCULAR HEMOGLOBIN 32.6 pg (28-32); MEAN CORPUSCULAR HGB CONC 33.2 g/dL (31-35); MEAN CORPUSCULAR VOLUME 98.2 fL (81-99); MONOCYTES # (AUTO) 1.9 (0.2-0.8); NEUTROPHILS # (AUTO) 3.5 (2.1-6.9); NEUTROPHILS % 41.9 % (38.7-80.0); PLATELET COUNT 126 x10e3/uL (140-360); RED BLOOD COUNT 3.34 x10e6/uL (4.3-5.7); RED CELL DISTRIBUTION WIDTH 13.9 % (11.7-14.4)
[2017-07-30 06:40] LABS: MAGNESIUM 1.8 MG/DL (1.3-2.1); PHOSPHORUS 3.9 MG/DL (2.3-4.7)
[2017-07-30 06:42] LABS: ALBUMIN 2.6 g/dL (3.5-5.0); ALBUMIN/GLOBULIN RATIO 0.6 (0.8-2.0); ANION GAP 12.6 mmol/L (8-16); CALCIUM 8.7 mg/dL (8.4-10.2); CHOL/HDL RATIO 8.2 (3.9-4.7); CREATININE, SERUM 2.27 mg/dL (0.72-1.25); POTASSIUM 3.6 mmol/L (3.5-5.1)
[2017-07-30] MEDS: INSULIN REGULAR, HUMAN 100 UNIT/1 ML 3ML VIAL SQ SCH ×4 (07:30→21:20)
[2017-07-30 07:31] LABS: THYROID STIMULATING HORMONE 0.746 uIU/mL (0.350-4.940)
[2017-07-30 07:43] LABS: ANISOCYTOSIS SLIGHT; EOSINOPHILS % (MANUAL) 1 % (0-7); HYPOCHROMASIA SLIGHT; LYMPHOCYTES % (MANUAL) 31 % (19-48); MONOCYTES % (MANUAL) 26 % (3.4-9.0); MYELOCYTES % (MANUAL) 1 % (0-0); NEUTROPHILS % (MANUAL) 41 % (40-74); NUCLEATED RED BLOOD CELLS 4; PLATELET ESTIMATE SLIGHTLY DECREASED; PLATELET MORPHOLOGY COMMENT FEW LARGE; RBC MORPHOLOGY COMMENT NORMAL
[2017-07-30] MEDS: TAMSULOSIN HCL 0.4 MG CAP PO SCH (09:00)
[2017-07-30] MEDS ORDERED: CARVEDILOL 12.5 MG TAB PO SCH (09:00)
[2017-07-30] MEDS: GABAPENTIN 300 MG CAP PO SCH ×2 (09:00→16:40)
[2017-07-30] MEDS ORDERED: HYDRALAZINE HCL 25 MG TAB PO SCH ×2 (09:00→15:00)
[2017-07-30] MEDS: CEFEPIME HCL 1 GM VIAL IV SCH (09:00)
[2017-07-30] MEDS: ASPIRIN 81 MG CHEW TAB PO SCH (09:00)
[2017-07-30] MEDS: LATANOPROST(OPTH) 2.5 ML BTL OP SCH (09:00)
[2017-07-30] MEDS: OXYBUTYNIN CHLORIDE 5 MG TAB PO SCH (09:00)
[2017-07-30] MEDS ORDERED: TERAZOSIN HCL 5 MG CAP PO SCH (09:00)
[2017-07-30] MEDS ORDERED: NIFEDIPINE CR 30 MG TAB PO SCH ×2 (09:00→21:00)
[2017-07-30] MEDS ORDERED: TORSEMIDE 10 MG TAB PO SCH (09:00)
[2017-07-30 10:36] LABS: % IRON SATURATION 21 % (15-50); IRON 56 ug/dL (65-175); TOTAL IRON BINDING CAPACITY 266 ug/dL (261-478); TRANSFERRIN 190 mg/dL (174-364)
--- NOTE | 2017-07-30 12:28 | Diagnostic Imaging Report ---
PROCEDURE:US RETROPERITONEAL ( KIDNEY ). COMPARISON:None. INDICATIONS:ELEVATED CREATININE TECHNIQUE: Dinero-scale and color sonographic images of the bilateral kidneys and bladder where obtained in transverse and longitudinal planes. FINDINGS: RIGHT KIDNEY: 10 x 5.8 x 5.2 cm, cortex 1.1 cm Cysts: None Solid masses: None Stones: None Hydronephrosis: None Echogenicity: Normal LEFT KIDNEY: 9.8 x 5 x 4 cm, cortex 1.4 cm Cysts: Interpolar region 1.2 x 0.9 x 1.1 cm simple cyst. Solid masses: None Stones: None Hydronephrosis: None Echogenicity: None Bladder: Minimal debris within the dependent aspect of the bladder. Otherwise, unremarkable. Prostate: Prostate measures approximately 3.5 x 3.6 x 4.5 cm (29.5 cc), upper normal in size. CONCLUSION: 1. No hydronephrosis. 2. Left renal simple cyst. 3. Trace nonspecific debris within the bladder. Consider correlation with urinalysis. Dictated by: Chandu Vogel M.D. on 07/30/2017 at 12:29 Electronically approved by: Chandu Vogel M.D. on 07/30/2017 at 12:29
[2017-07-30] MEDS: HYDRALAZINE HCL 100 MG TABLET PO SCH ×2 (15:00→21:15)
--- NOTE | 2017-07-30 20:54 | Consultation ---
DATE OF CONSULTATION: July 30, 2017 CARDIOLOGY CONSULTATION NOTE ATTENDING PHYSICIANS 1. Dr. Diane Mcclure. 2. Dr. Jose Alfredo Enriquez. CLINICAL HISTORY: This is a 76-year-old black man, a patient of [facility], referred by Dr. Enriquez for evaluation of weakness, dizziness, and fall without syncope or near syncope. This patient's memory is not up to par; however, his history is felt to be reliable. According to him, he has had history of weakness and shakiness without falls. One of these episodes 2 weeks ago caused him to come to our emergency room where he was evaluated and discharged. On the day of admission, he had gone to the bathroom and back without any difficulties. He was watching TV, sitting on his bed for approximately 10 minutes when he decided to get up and put on his clothes to go to a part-time job. While he was going this, he fell, hitting the bed post, and falling on the ground. His then called the ambulance. He said he was totally conscious, had no near syncopal feeling, felt only dizziness and shakiness, perhaps generalized weakness. Workup in the emergency room included rib x-rays and CT scan of the head that were negative. He was admitted for further evaluation and treatment. At the time of admission, his EKG showed sinus bradycardia at 46 beats per minute. His initial temperature was 100.3 degrees. His initial blood pressure is 187/83 and later, blood pressure came down to 137/60. His current blood pressure was 152/67 supine and 112/56 standing. MEDICATIONS: This patient is on multiple blood pressure medications including 25 mg of Coreg b.i.d., lisinopril, nifedipine, tamsulosin, torsemide, and terazosin 5 mg b.i.d. Additionally, he is on labetalol. PAST MEDICAL HISTORY: Remarkable for unknown heart condition that prevent him from going into service. It sounds like he had PVCs. There is history of chronic kidney disease, diabetes, hypertension, and hyperlipidemia. ALLERGIES: TO GLYBURIDE. PERSONAL AND SOCIAL HISTORY: Denies smoking, drinking. In the past, he has smoked 1 to 3 cigarettes per day for approximately 16 years. 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 FAMILY HISTORY: Noncontributory. REVIEW OF SYSTEMS: Negative. PHYSICAL EXAMINATION VITALS: As mentioned, blood pressure was 152/67 sitting and 112/56 standing. CARDIAC: Jugular veins were not distended. S1, S2 were distant. There are no appreciable murmurs. LUNGS: Clear. ABDOMEN: Soft. Bowel sounds are present. EXTREMITIES: Show no cyanosis, clubbing, or edema. IMPRESSION 1. Orthostatic dizziness with drop in blood pressure from 152/67 to 112/56 without any syncope or near syncope with one previous emergency room visit dismissed 2 weeks ago. 2. Polypharmacy with the patient taking 2 different types of beta blockers, namely labetalol and carvedilol and 3 different types of alpha blockers including tamsulosin, terazosin, and labetalol. Additionally, he takes a diuretic. 3. He has chronic kidney disease, is on lisinopril. He is on nifedipine. 4. Diabetes. 5. Hyperlipidemia. Cholesterol 239 and triglycerides 308. 6. History of cigarette smoking. 7. Hypertension. 8. Obesity. 9. Possible dementia with poor memory. 10. Possible underlying chronic obstructive pulmonary disease with the patient taking Symbicort. 11. Hepatic illness, on acyclovir. RECOMMENDATION: Decrease blood pressure medications, particularly those that are duplications. Consider stopping diuretics since this is the most likely cause of his orthostatic blood pressure drop. Consider stopping beta val due to severe bradycardia. Hopefully with cutting back on diuretics, his kidney function may actually improve. Consider increasing calcium-channel val to compensate for the decrease in other blood pressure medications. Thank you very much. Job#: [id number] [facility] cc:[facility] Dr. Diane Enriquez
[2017-07-30] MEDS: INSULIN DETEMIR 100 UNIT/ML PEN SQ SCH (21:20)
[2017-07-31 03:01] LABS: CLARITY,URINE SL CLOUDY (CLEAR); COLOR,URINE YELLOW (YELLOW)
[2017-07-31 03:02] LABS: BILIRUBIN,URINE NEGATIVE (NEGATIVE); KETONES,URINE NEGATIVE (NEGATIVE); NITRITE,URINE NEGATIVE (NEGATIVE); PROTEIN,URINE DIPSTICK 1+ (NEGATIVE); URINE UROBILINOGEN 0.2 mg/dL (0.2 - 1)
[2017-07-31 03:03] LABS: LEUKOCYTE ESTERASE ,URINE 2+ (NEGATIVE); WBC,URINE (MAN) >50 /HPF (0-5)
[2017-07-31 03:04] LABS: BACTERIA,URINE RARE /HPF; EPITHELIAL CELLS,URINE FEW /LPF; RBC,URINE 0-5 /HPF (0-5)
[2017-07-31 05:29] VITALS: BP 161/72
[2017-07-31 06:19] LABS: BASOPHILS % 0.1 % (0.0-1.0); EOSINOPHILS # (AUTO) 0.1 (0.0-0.4); EOSINOPHILS % 1.9 % (0.0-6.0); HEMATOCRIT 31.5 % (38.2-49.6); HEMOGLOBIN 10.2 g/dL (14.0-18.0); LYMPHOCYTES # (AUTO) 2.4 (1.0-3.2); LYMPHOCYTES % 32.6 % (18.0-39.1); MEAN CORPUSCULAR HEMOGLOBIN 32.6 pg (28-32); MEAN CORPUSCULAR HGB CONC 32.4 g/dL (31-35); MEAN CORPUSCULAR VOLUME 100.6 fL (81-99); MONOCYTES # (AUTO) 1.9 (0.2-0.8); MONOCYTES % 25.7 % (4.4-11.3); NEUTROPHILS # (AUTO) 2.9 (2.1-6.9); NEUTROPHILS % 39.3 % (38.7-80.0); PLATELET COUNT 120 x10e3/uL (140-360); RED BLOOD COUNT 3.13 x10e6/uL (4.3-5.7); RED CELL DISTRIBUTION WIDTH 14.2 % (11.7-14.4)
[2017-07-31 06:51] LABS: ANION GAP 12.9 mmol/L (8-16); CREATININE, SERUM 1.79 mg/dL (0.72-1.25); POTASSIUM 3.9 mmol/L (3.5-5.1)
[2017-07-31] MEDS: INSULIN REGULAR, HUMAN 100 UNIT/1 ML 3ML VIAL SQ SCH ×4 (07:30→20:45)
[2017-07-31 08:00] VITALS: BP 159/78
[2017-07-31 08:30] LABS: BLAST CELLS % MANUAL 1; EOSINOPHILS % (MANUAL) 3 % (0-7); LYMPHOCYTES % (MANUAL) 34 % (19-48); MONOCYTES % (MANUAL) 20 % (3.4-9.0); NEUTROPHILS % (MANUAL) 42 % (40-74)
[2017-07-31 08:31] LABS: POIKILOCYTOSIS SLIGHT
[2017-07-31 08:32] LABS: ANISOCYTOSIS SLIGHT; HYPOCHROMASIA SLIG; PLATELET ESTIMATE SLIGHTLY DECREASED; PLATELET MORPHOLOGY COMMENT FEW LARGE; RBC MORPHOLOGY COMMENT NORMAL
[2017-07-31] MEDS: HYDRALAZINE HCL 100 MG TABLET PO SCH ×3 (09:00→20:29)
[2017-07-31] MEDS: LATANOPROST(OPTH) 2.5 ML BTL OP SCH (09:00)
[2017-07-31] MEDS: NIFEDIPINE CR 30 MG TAB PO SCH (09:00)
[2017-07-31] MEDS: OXYBUTYNIN CHLORIDE 5 MG TAB PO SCH (09:00)
[2017-07-31] MEDS: TAMSULOSIN HCL 0.4 MG CAP PO SCH (09:00)
[2017-07-31] MEDS: GABAPENTIN 300 MG CAP PO SCH ×2 (09:00→17:00)
[2017-07-31] MEDS: ASPIRIN 81 MG CHEW TAB PO SCH (09:00)
[2017-07-31] MEDS: CEFEPIME HCL 1 GM VIAL IV SCH (09:00)
[2017-07-31 12:00] VITALS: BP 148/77
[2017-07-31] MEDS ORDERED: LEVAQUIN500 MG PO (15:43)
[2017-07-31 16:00] VITALS: BP 160/78
[2017-07-31 19:43] VITALS: BP 129/62
[2017-07-31 20:00] VITALS: BP 129/62
[2017-07-31] MEDS: INSULIN DETEMIR 100 UNIT/ML PEN SQ SCH (20:46)
[2017-08-01] VITALS (7 sets, daily range): BP systolic 144–166; BP diastolic 67–73
[2017-08-01] MEDS: INSULIN REGULAR, HUMAN 100 UNIT/1 ML 3ML VIAL SQ SCH ×4 (07:25→21:50)
[2017-08-01] MEDS: OXYBUTYNIN CHLORIDE 5 MG TAB PO SCH (08:42)
[2017-08-01] MEDS: CEFEPIME HCL 1 GM VIAL IV SCH (08:42)
[2017-08-01] MEDS: HYDRALAZINE HCL 100 MG TABLET PO SCH ×3 (08:42→21:50)
[2017-08-01] MEDS: GABAPENTIN 300 MG CAP PO SCH ×2 (08:42→17:00)
[2017-08-01] MEDS: LATANOPROST(OPTH) 2.5 ML BTL OP SCH (08:42)
[2017-08-01] MEDS: NIFEDIPINE CR 30 MG TAB PO SCH (08:42)
[2017-08-01] MEDS: TAMSULOSIN HCL 0.4 MG CAP PO SCH (08:42)
[2017-08-01] MEDS: ASPIRIN 81 MG CHEW TAB PO SCH (09:00)
[2017-08-01] MEDS: CLONIDINE HCL 0.1 MG TAB PO SCH ×2 (12:30→17:00)
[2017-08-01] MEDS ORDERED: ALPRAZOLAM 1 MG TAB PO PRN (21:00)
[2017-08-01] MEDS ORDERED: ALPRAZOLAM 1 MG TAB PO SCH (21:00)
[2017-08-01] MEDS: INSULIN DETEMIR 100 UNIT/ML PEN SQ SCH (21:50)
[2017-08-01] MEDS: ACETAMINOPHEN 325 MG TAB PO PRN (22:26)
[2017-08-02] VITALS: BP 161/74
[2017-08-02 04:00] VITALS: BP 156/72
[2017-08-02 06:40] LABS: BASOPHILS % 0.3 % (0.0-1.0); EOSINOPHILS # (AUTO) 0.2 (0.0-0.4); EOSINOPHILS % 3.3 % (0.0-6.0); HEMATOCRIT 32.2 % (38.2-49.6); HEMOGLOBIN 10.4 g/dL (14.0-18.0); LYMPHOCYTES # (AUTO) 2.2 (1.0-3.2); MEAN CORPUSCULAR HEMOGLOBIN 32.6 pg (28-32); MEAN CORPUSCULAR HGB CONC 32.3 g/dL (31-35); MEAN CORPUSCULAR VOLUME 100.9 fL (81-99); MONOCYTES # (AUTO) 2.3 (0.2-0.8); MONOCYTES % 36.1 % (4.4-11.3); NEUTROPHILS # (AUTO) 1.6 (2.1-6.9); PLATELET COUNT 153 x10e3/uL (140-360); RED BLOOD COUNT 3.19 x10e6/uL (4.3-5.7); RED CELL DISTRIBUTION WIDTH 14.2 % (11.7-14.4)
[2017-08-02 07:05] LABS: ANION GAP 8.9 mmol/L (8-16); CALCIUM 9.1 mg/dL (8.4-10.2); CREATININE, SERUM 1.39 mg/dL (0.72-1.25); POTASSIUM 3.9 mmol/L (3.5-5.1)
[2017-08-02] MEDS: INSULIN REGULAR, HUMAN 100 UNIT/1 ML 3ML VIAL SQ SCH ×2 (07:30→11:25)
[2017-08-02 08:00] VITALS: BP 171/74
[2017-08-02] MEDS: NIFEDIPINE CR 30 MG TAB PO SCH (08:31)
[2017-08-02] MEDS: ASPIRIN 81 MG CHEW TAB PO SCH (08:31)
[2017-08-02] MEDS: TAMSULOSIN HCL 0.4 MG CAP PO SCH (08:31)
[2017-08-02] MEDS: CEFEPIME HCL 1 GM VIAL IV SCH (08:31)
[2017-08-02] MEDS: CLONIDINE HCL 0.1 MG TAB PO SCH (08:31)
[2017-08-02] MEDS: OXYBUTYNIN CHLORIDE 5 MG TAB PO SCH (08:31)
[2017-08-02] MEDS: GABAPENTIN 300 MG CAP PO SCH (08:31)
[2017-08-02] MEDS: LATANOPROST(OPTH) 2.5 ML BTL OP SCH (08:31)
[2017-08-02] MEDS: HYDRALAZINE HCL 100 MG TABLET PO SCH (08:31)
[2017-08-02 08:53] LABS: EOSINOPHILS % (MANUAL) 3 % (0-7); NEUTROPHILS % (MANUAL) 24 % (40-74)
[2017-08-02 08:54] LABS: PLATELET ESTIMATE ADEQUATE; PLATELET MORPHOLOGY COMMENT NORMAL; RBC MORPHOLOGY COMMENT ABNORMAL
[2017-08-02 10:00] VITALS: BP 171/74
[2017-08-02 12:00] VITALS: BP 192/82
[2017-08-02 14:28] LABS: LYMPHOCYTES % (MANUAL) 31 % (19-48)
[2017-08-02 14:29] LABS: MONOCYTES % (MANUAL) 42 % (3.4-9.0)
[2017-08-02] MEDS ORDERED: CIPRO500 MG PO (15:06)
[2017-08-02 16:00] VITALS: BP 145/67
--- NOTE | 2017-08-02 18:41 | Discharge Summary ---
PRIMARY CARE DOCTOR: Dr. Shaylee Noland. FINAL DIAGNOSIS: Near syncope with fall due to overdiuresis and iatrogenic bradycardia. SECONDARY DIAGNOSIS 1. Right shoulder contusion, getting better. 2. Pseudomonas/enterococcus urinary tract infection. 3. Stage 3 chronic kidney disease due to diabetes, stable. 4. Mild thrombocytopenia, resolved. 5. Hypertension. 6. Multiple myeloma. ETCHER PHOTOENGRAVING: Dr. Ackerman, cardiology. PROCEDURES/STUDIES PERFORMED 1. Head computed tomography did not show any acute disease. 2. Renal ultrasound was consistent with chronic kidney disease. HISTORY: Per H\T\P. HOSPITAL COURSE: Patient was admitted. His labetalol was held due to iatrogenic bradycardia. His torsemide was held as well given the patient was overdiuresed, causing him to fall due to near syncope. His right shoulder contusion is getting better. Patient also had a fever here, and this is due to pseudomonas/enterococcus UTI. Patient was getting cefepime here. Based on sensitivity, patient will go home on renally adjusted Cipro x7 days. There was coag-negative staph in the blood. This is contaminant. Patient was seen and examined today. It took 35 minutes total to discharge this patient. CONDITION ON DISCHARGE: Stable. DISCHARGE MEDICATIONS: Please see medication reconciliation form. SHANE FERNANDO M.D. Job#: [id number] [facility] cc:SHAYLEE NOLAND MD
== END 2017-08-02 17:22 | disposition home or self-care (01) | DRG 690 ==
LOC: ER 11:25 → ERHOLD 15:46 → MED/SURG2 17:25
PROVIDERS: ADMIT Internal Medicine; ATTEND Internal Medicine
DX: N39.0 Urinary tract infection, site not specified (principal); N17.9 Acute kidney failure, unspecified; C90.00 Multiple myeloma not having achieved remission; D69.6 Thrombocytopenia, unspecified; N18.3 Chronic kidney disease, stage 3 (moderate); E11.22 Type 2 diabetes mellitus with diabetic chronic kidney disease; F03.90 Unspecified dementia, unspecified severity, without behavioral disturbance, psychotic disturbance, mood disturbance, and anxiety; E88.09 Other disorders of plasma-protein metabolism, not elsewhere classified; J44.9 Chronic obstructive pulmonary disease, unspecified; R00.1 Bradycardia, unspecified; S40.011A Contusion of right shoulder, initial encounter; W19.XXXA Unspecified fall, initial encounter; B96.5 Pseudomonas (aeruginosa) (mallei) (pseudomallei) as the cause of diseases classified elsewhere; B95.2 Enterococcus as the cause of diseases classified elsewhere; I12.9 Hypertensive chronic kidney disease with stage 1 through stage 4 chronic kidney disease, or unspecified chronic kidney disease; Z79.4 Long term (current) use of insulin; T44.8X5A Adverse effect of centrally-acting and adrenergic-neuron-blocking agents, initial encounter; Z87.891 Personal history of nicotine dependence; E66.9 Obesity, unspecified; E86.0 Dehydration; I44.0 Atrioventricular block, first degree; Z68.28 Body mass index [BMI] 28.0-28.9, adult; D64.9 Anemia, unspecified; R19.5 Other fecal abnormalities; Z79.899 Other long term (current) drug therapy
CPT/HCPCS: 36415; 70450; 71045; 71101; 76770; 80048; 80053; 80061; 81001; 82270; 82948; 83036; 83540; 83735; 84100; 84443; 84466; 85025; 87040; 87071; 87086; 87186; 87205; 93005; 99284; J0360; J0692; J7030

== ENCOUNTER 2017-09-04 20:11 | Inpatient (IN) | payer MEDICARE ==
[~2017-09-04] VITALS: Ht 188 cm; Wt 106.3 kg
[~2017-09-04 20:11] MED LIST changes: +AUGMENTIN 500-1 EACH PO; +CIPRO500 MG PO; +LANTUS 3ML100 UNITS/ SC; +LATANOPROST2.5 ML OP; +LEVAQUIN500 MG PO; +OXYBUTYNIN CHLOR5 MG PO; +SYMBICORT 16010.2 GM IH
--- OUTSIDE RECORDS SUMMARY | 2017-09-04 20:16 | XMS REPORT | Clinical Summary ---
Author Author MAHNAZ [facility] Address Unknown Phone Unavailable Care Team Providers Care Chief Digital Media Officer Name Role Phone PCP Unavailable Allergies Active [...] (HCC) 04/27/2017 Diastolic CHF, acute on chronic ([facility]) 04/27/2017 Pleural effusion 04/27/2017 Hypertension 04/27/2017 Hyperlipidemia 04/27/2017 C. difficile diarrhea 04/27/2017 Pericardial effusion 04/27/2017 Bilateral pneumonia 04/27/2017 NSTEMI (non-ST elevated myocardial infarction) ([facility]) 04/19/2017 (HFpEF) heart failure with preserved ejection fraction ([facility]) 04/19/2017 Essential hypertension 04/19/2017 Influenza A 04/18/2017 DM type 2 (diabetes mellitus, type 2) ([facility]) 04/24/2016 Multiple myeloma ([facility]) 04/24/2016 Encounters Date Type Specialty Care Team Description 04/18/2017 [facility] General Internal Medicine Peter Wren, Influenza A (Primary - Encounter MD Dx);Acute on chronic 04/27/2017 Elen Hernandez congestive heart failureOh MD unspecified congestive Daina Yeboah MD heart failure type ([facility]);EDGARD (acute kidney injury) ([facility]);Acute respiratory failure with hypoxia ([facility]);Severe sepsis ([facility]) 04/18/2017 Orders Only General Internal Medicine after 09/03/2016 Family History Medical History Relation Name Comments [...] Taken Blood Pressure 151/68 04/27/2017 12:18 PM PROCEDURES RN Pulse 60 04/27/2017 12:18 PM PROCEDURES RN Temperature 36.2 C (97.2 F) 04/27/2017 12:18 PM PROCEDURES RN Respiratory Rate 19 04/27/2017 12:18 PM PROCEDURES RN Oxygen Saturation 97% 04/27/2017 12:18 PM PROCEDURES RN Inhaled Oxygen - - Concentration Weight 105.3 kg (232 lb 3.2 oz) 04/27/2017 6:00 AM PROCEDURES RN Height 185.4 cm (6' 1") 04/18/2017 3:03 PM PROCEDURES RN Body Mass Index 30.64 04/27/2017 6:00 AM PROCEDURES RN Plan of Treatment Not on file Procedures Procedure Name Priority Date/Time Associated Diagnosis Comments CRITICAL CARE Routine 04/18/2017 Results for this 6:52 PM PROCEDURES RN procedure are in the results section. after 09/03/2016 Results * RHYTHM STRIP - SCAN (04/29/2017 11:10 AM) * POC-Glucose meter (04/27/2017 4:38 PM) Only the most recent of 38 results within the time period is included. Component Value Ref Range POC-Glucose Meter 208 (H)Comment: TESTED AT [address] 70 - 110 mg /dL [facility] [id number] Specimen Performing Laboratory Blood [facility] [address] [address] * XR chest 1 view portable / [...] MD Report Verified Date/Time:04/27/2017 10:19:00 Reading Location: [address] Ortho Consult Reading Room Procedure Note Interface, External Ris In - 04/27/2017 10:21 AM PROCEDURES RN FINAL REPORT CHEST ONE VIEW HISTORY: Pleural [...] Report Verified Date/Time: 04/27/2017 10:19:00 Reading Location: [address] Ortho Consult Reading Room * CBC [...] % Granulocytes-Relative Specimen Performing Laboratory Blood [address] [address] * CBC with platelet count + automated diff (04/27/2017 5:39 AM) Only the most recent of 5 results within the time period is included. Specimen Performing Laboratory Blood Narrative The following orders were created for panel order CBC with platelet count + automated diff. Procedure Abnormality Status --------- - ------ CBC with platelet count ...[[id number]]AbnormalFinal result Please view results for these tests on the individual orders. * B-type Natriuretic Factor (BNP) (04/27/2017 5:39 AM) Only the most recent of 3 results within the time period is included. Component Value Ref Range BNP 200 (H) 0 - 100 pg/mL Specimen Performing Laboratory Blood [address] [place] [address] * Basic Metabolic Panel (04/27/2017 5:39 AM) [...] DIALYSIS PATIENTS. Specimen Performing Laboratory Blood [address] [address] * Magnesium (04/26/2017 5:21 AM) Only the most recent of 7 results within the time period is included. Component Value Ref Range Magnesium 2.2Comment: Specimen slightly hemolyzed 1.6 - 2.6 mg/dL Specimen Performing Laboratory Blood [address] [address] * CBC (hemogram only) (04/24/2017 4:39 AM) [...] Performing Laboratory Blood - Arm, Right [address] [address] * TSH/Free T4 If Indicated (04/23/2017 3:43 AM) Component Value Ref Range TSH 0.70 0.35 - 4.94 uIU/mL Specimen Performing Laboratory Blood - Hand, [address] [address] * Phosphorus (04/23/2017 3:43 AM) Component Value Ref Range Phosphorus 3.1 2.3 - 4.7 mg/dL Specimen Performing Laboratory Blood - Hand, [address] [address] * Hemoglobin A1c (04/23/2017 3:43 AM) Component Value Ref Range Hemoglobin A1C 5.9 4.3 - 6.1 % Specimen Performing Laboratory Blood - Hand, [place] [address] * Hepatic function panel (04/23/2017 3:43 AM) [...] U/L Specimen Performing Laboratory Blood - Hand, [address] [address] * Lipid panel (04/23/2017 3:43 AM) Component Value Ref Range Triglycerides 179 mg/dL Cholesterol 140 mg/dL HDL 30 mg/dL LDL Calculated 74 mg/dL Specimen Performing Laboratory Blood - Hand, [address] [address] Narrative Triglyceride Reference Range: Low Risk <150 [id number] High Risk 200-499 Very High Risk>=500 Cholesterol Reference Range: Low Risk <200 Hamsbvifpl550-486 High Risk>240 HDL Cholesterol Reference Range: Low Risk >=60 High Risk <40 LDL Cholesterol Reference Range: Optimal<100 Near [id number] [id number] [id number] Very High >=190 * Strep pneumoniae antigen (04/22/2017 7:29 PM) Component Value Ref Range Strep pneumoniae Antigen Presumptive negative for pneumococcal pneumonia - Presumptive negative for see comment pneumococcal pneumonia - see comment, Presumptive negative for pneumococcal meningitis - see comment Specimen Performing Laboratory Urine - Urine, [facility] Unspecified Source [address] [place] [id number] Narrative Presumptive negative for pneumococcal pneumonia, suggesting [...] Specimen Performing Laboratory Urine - Urine, [place] [address] * Occult blood, stool (04/22/2017 11:41 AM) Component Value Ref Range Occult blood Positive (A) Negative Specimen [place] [address] * Clostridium difficile Toxin PCR (04/22/2017 10:47 AM) Component Value Ref Range C.Diff Toxin, PCR Detected (A) Not Detected Specimen [place] [address] Narrative This qualitative real-time polymerase chain reaction [...] Specimen Performing Laboratory Sputum - Expectorated [address] [address] * CT chest without IV contrast (04/21/2017 [...] MD Report Verified Date/Time:04/21/2017 10:06:22 Reading Location: [facility] B1 C013Y CT Body Reading Room Procedure Note Interface, External Ris In - 04/21/2017 10:08 AM PROCEDURES RN FINAL REPORT TECHNIQUE: CT scan of the [...] Report Verified Date/Time: 04/21/2017 10:06:22 Reading Location: [address] Body Reading Room * Manual Differential (04/21/2017 4:53 AM) Only the most recent of 2 results within the time period is included. Specimen Performing Laboratory Blood [address] [address] * Vancomycin level, trough (04/20/2017 4:57 PM) Component Value Ref Range Vancomycin Tr 11.8 10.0 - 20.0 ug/mL Specimen Performing Laboratory Blood [address] [address] Narrative Draw trough level prior to dose administration. * Troponin I (04/20/2017 8:36 AM) Only the most recent of 5 results within the time period is included. Component Value Ref Range Troponin I 3.04 (HH) 0.00 - 0.03 ng/mL Specimen [place] [address] Narrative Troponin I (TnI) levels must be [...] Index 1.5 % Specimen Performing [place] [address] Narrative CK-MB Reference Range: <6.7Normal 6.7-10.0Borderline >10.0 Abnormal * ECHOCARDIOGRAM REPORT - SCAN (04/20/2017 7:20 AM) * Calcium, Ionized (04/20/2017 5:16 AM) Component Value Ref Range Calcium, Ion 1.10 (L) 1.12 - 1.27 mmol/L pH, Blood 7.44 Specimen [place] [address] * 2D Echo W/Doppler (Sepsis Protocol) (04/19/2017 12:16 PM) Component Value Ref Range Ejection Fraction Specimen Performing Laboratory [facility] Narrative Transthoracic Echocardiography Report (TTE) Demographics Patient Name SERGE JENKINS Date of Study 04/19/2017 [id number] Gender Male Visit Number [id number] Race Black [id number] Number [id number] Number Date of Birth1940 Referring Physician Nishant Srivastava Age76 year(s) Delivery Aide Pradeep Crowe [facility] Interpreting [facility] Needs to be Pre Physician [...] normal. Aortic Valve Mild AoV cusp thickening. Yetn-aq-uqyvwtoc AoV cusp calcification. No evidence of aortic [...] External Ris In - 04/19/2017 7:28 PM PROCEDURES RN Transthoracic Echocardiography Report (TTE) Demographics Patient Name SERGE JENKINS Date of Study 04/19/2017 Gender Male Visit Number [id number] Race Black Room Number [id number] Number Date of 1940 Referring Physician Nishant Srivastava Age 76 year(s) Delivery Aide Pradeep Crowe RDJOHN Interpreting [facility] Needs to be Pre Physician Read King Restrepo MD Fellow SAHISH Srivastava Procedure Type of Study TTE procedure:2DECHO [...] normal. Aortic Valve Mild AoV cusp thickening. [id number] AoV cusp calcification. No evidence of aortic [...] 51.0 % Specimen Performing Laboratory Blood [address] [address] * Lactic acid, venous, whole blood (04/19/2017 10:33 AM) Only the most recent of 5 results within the time period is included. Component Value Ref Range Lactate, Venous 1.0 0.5 - 2.2 mmol/L Specimen Performing Laboratory Blood [address] [address] Narrative Effective 08/23/2015: Units/Reference Range Change New: 0.5-2.2 mmol/LPrevious: 5-20 mg/dL * aPTT (04/19/2017 4:58 AM) Component Value Ref Range PTT 26.7 22.5 - 36.0 seconds Specimen Performing Laboratory Blood [address] [address] Narrative Prior to initiating heparin * Platelet count (04/19/2017 4:58 AM) Component Value Ref Range Platelets 154 150 - 450 K/CU MM Specimen Performing Laboratory Blood [address] [address] Narrative Baseline and daily starting prior to initiation of heparin infusion * ECG 12 lead (04/19/2017 4:11 AM) Only the most recent of 2 results within the time period is included. Specimen Performing Laboratory [facility] Narrative Ventricular Rate 98 BPM Atrial Rate 98 BPM P-R Interval 192 ms QRS Duration 66 ms Q-T Interval 330 ms QTC Calculation(Bazett) 421 ms P [place] 48 degrees R [place] 63 degrees T [place] 84 degrees Normal sinus rhythm Normal ECG When compared with ECG of 18-APR-2017 15:52, Premature atrial complexes are no longer Present T wave inversion no longer evident in Inferior leads T wave inversion no longer evident in Lateral leads Confirmed by MD WYNNE PABLO ([id number]) on 04/20/2017 12:52:47 PM Procedure Note Interface, External Ris In - 04/20/2017 12:52 PM PROCEDURES RN Ventricular Rate 98 BPM Atrial Rate 98 BPM P-R Interval 192 ms QRS Duration 66 ms Q-T Interval 330 ms QTC Calculation(Bazett) 421 ms P [place] 48 degrees R [place] 63 degrees T [place] 84 degrees Normal sinus rhythm Normal ECG [...] growth Specimen Performing Laboratory Urine - Urine, [address] [address] * Urinalysis w/ Microscopic (04/18/2017 10:38 PM) Component Value Ref Range Color, UA Yellow Clarity, UA Hazy Specific [place], UA 1.011 1.001 - 1.035 pH, UA [...] Performing Laboratory Urine - Urine, [place] [address] [address] * Blood gas, arterial (04/18/2017 10:37 PM) [...] % Specimen Performing Laboratory Blood, Arterial [address] [address] * ED ECG Interpretation (04/18/2017 6:52 PM) [...] - 4.3 ng/mL Specimen Performing Laboratory Blood [facility] [address] [place] [address] * Rapid Troponin I (04/18/2017 3:40 PM) Component Value Ref Range Rapid Troponin I 0.12 (H) <0.05 ng/mL Specimen Performing Laboratory Blood [facility] [address] [place] [address] * Blood culture #2 (04/18/2017 3:31 PM) Only the most recent of 2 results within the time period is included. Component Value Ref Range Result No growth in 5 days Specimen Performing Laboratory Blood - Arm, Right [address] [address] * Rapid influenza A&B screen (04/18/2017 3:31 PM) Component Value Ref Range Rapid Influenza A Antigen Positive (A) Negative, Inconclusive Rapid influenza B Antigen Negative Negative, Inconclusive Specimen Performing Laboratory Nasal - Nasopharyngeal [facility] [place], Swab [facility] [address] [place] [address] * Comprehensive metabolic panel (04/18/2017 3:30 PM) [...] DIALYSIS PATIENTS. Specimen Performing Laboratory Blood [facility] [address] [place] [address] after 09/03/2016
--- OUTSIDE RECORDS SUMMARY | 2017-09-04 20:17 | XMS REPORT | Continuity of Care Document ---
Author Author [facility] Organization [facility] Address [address] [place] [address] Phone Unavailable Care Team Providers Care Clearing Supervisor Name Role Phone NONSTAFF PCP Unavailable Insurance Providers Guarantor Serge Jenkins Address [address] [place] [address] Email Payer [employer] Medicare Advantage Policy Number [id number] Subscriber's Name Serge Jenkins Relationship 18 Self / Same As Patient Effective Date 08 Advance Directives Directive Response Recorded Date/Time Does the patient have an advance directive? No 07/29/17 6:19pm If yes, is advance directive on file with [facility]? No 07/09/17 11:18pm If not on file with [facility] will patient provide a copy? No 07/09/17 11:18pm Do you have a Directive to Physician? No 07/29/17 12:15pm Do you have a Medical Power of Upholsterer Inside? No 07/29/17 12:15pm Do you have an out of hospital Do Not Resuscitate Order? No 07/29/17 12:15pm Do you have any special needs we should be aware of? No 07/29/17 12:15pm Do you have a support person here with you today? Yes 07/29/17 12:15pm Did patient receive Notice of Privacy Practices? Yes 07/29/17 12:15pm Did patient receive patient rights and responsibilities? Yes 07/29/17 12:15pm Problems Medical Problem Onset Date Status Dehydration Unknown Symptomatic bradycardia Unknown UTI (urinary tract infection) Unknown Uncontrolled hypertension Unknown Medications Current Home Medications Medication Dose Units Route Directions Days Qty Instructions Start Date Acyclovir 200 Mg Capsule 400 Mg Oral Daily 30 Cap Alprazolam 1 Mg Tablet 2 Mg Oral Bedtime 30 Tab Amoxicillin/Potassium Clav (Augmentin 500-125 Tablet) 1 Each Tablet 500 Mg Oral Twice A Day 60 Tab Aspirin (Aspir 81) 81 Mg Tablet.dr 81 Mg Oral Daily Budesonide/Formoterol Fumarate (Symbicort 160-4.5 Mcg Inhaler) 10.2 Gm Hfa.aer.ad Mcg Inhalation Twice A Day Carvedilol 12.5 Mg Tablet 25 Mg Oral Twice A Day 60 Tab Ciprofloxacin Hcl (Cipro) 500 Mg Tablet 250 Mg Oral Twice A Day 7 Days 14 Tab Diphenoxylate Hcl/Atropine (Diphenoxylate-Atropine Tablet) 1 Each Tablet Gabapentin 300 Mg Capsule 600 Mg Oral Twice A Day 60 Cap Hydralazine Hcl 25 Mg Tab 50 Mg Oral Twice A Day Insulin Glargine (Lantus 3ML Pen) 100 Units/1 Ml Inj 40 Units Subcutaneously Bedtime Labetalol Hcl 100 Mg Tablet 300 Mg Oral Twice A Day 30 Tab Latanoprost 2.5 Ml Drops 2.5 Ml Ophthalmic Daily Levofloxacin (Levaquin) 500 Mg Tablet 500 Mg Oral Daily Lisinopril 10 Mg Tablet 40 Mg Oral Daily 30 Tab Nifedipine (Nifedipine Er) 30 Mg Tab.er.24 30 Mg Oral Daily Oxybutynin Chloride 5 Mg Tablet 10 Mg Oral Daily 30 Tab Tamsulosin Hcl (Flomax*) 0.4 Mg Cap 0.8 Mg Oral Daily 30 Cap Terazosin Hcl 5 Mg Capsule 5 Mg Oral Twice A Day 30 Cap Torsemide 10 Mg Tablet 20 Mg Oral Twice A Day Social History Social History Problem Response Recorded Date/Time Onset Date Status Hx Psychiatric Problems No 07/29/2017 6:19pm Not Applicable Not Applicable Hx Eating Disorder No 07/29/2017 6:19pm Not Applicable Not Applicable Hx Substance Use Disorder No 07/29/2017 6:19pm Not Applicable Not Applicable Hx Depression No 07/29/2017 6:19pm Not Applicable Not Applicable Hx Alcohol Use No 07/29/2017 6:19pm Not Applicable Not Applicable Hx Substance Use Treatment No 07/29/2017 6:19pm Not Applicable Not Applicable Hx Physical Abuse No 07/29/2017 6:19pm Not Applicable Not Applicable Smoking Status Start Date Stop Date Never Smoker Hospital Discharge Instructions No hospital discharge instruction information available. Plan of Care Discharge Date 08/02/17 5:22pm Disposition HOME, SELF-CARE Instructions/Education Provided Bradycardia Prescriptions See Medication Section Additional Instructions/Education follow up with pcp in 1 week Functional Status Query Response Date Recorded FUNCTIONAL STATUS . July 30, 2017 3:09pm Assistive Devices None July 29, 2017 6:22pm Ambulation Ability Minimum Assistance 1 person assist July 29, 2017 6:22pm Toileting Ability Minimum Assistance August 01, 2017 4:58pm Allergies, Adverse Reactions, Alerts Allergen Type Severity Reaction Status Last Updated Glyburide Allergy Unknown Active 07/29/17 Immunizations No immunization information available. Vital Signs Acute Vital Signs Vital Response Date/Time Temperature (Fahrenheit) 96.7 degrees F (97.6 - 99.5) 08/02/2017 12:00pm Pulse Pulse Rate (adult) 55 bpm (60 - 90) 08/02/2017 12:00pm Respiratory Rate 20 bpm (12 - 24) 08/02/2017 12:00pm Blood Pressure 192/82 mm Hg 08/02/2017 12:00pm Height 6 ft 2 in 07/29/2017 11:38am Weight 221 lb 07/29/2017 6:19pm Body Mass Index 28.4 kg/m^2 07/29/2017 6:19pm Results Laboratory Results Test Name Result Units Flags Reference Collection Date/Time Result Date/ Time Comments Reactive Lymphocytes 1 07/10/2017 6:00am 07/10/2017 11:45am B-Type Natriuretic Peptide 224.9 pg/mL H 0-100 07/09/2017 3:45pm 2017 5:02pm Troponin I 0.013 ng/mL 0-0.300 07/09/2017 3:45pm 07/09/2017 5:11pm White Blood Count 6.32 x10e3/uL 4.8-10.8 08/02/2017 6:30am 08/02/2017 6 :42am Red Blood Count 3.19 x10e6/uL L 4.3-5.7 08/02/2017 6:08/02/2017 6: 42am Hemoglobin 10.4 g/dL L 14.0-18.0 08/02/2017 6:08/02/2017 6:42am Hematocrit 32.2 % L 38.2-49.6 08/02/2017 6:08/02/2017 6:42am Mean Corpuscular Volume 100.9 fL H 81-99 08/02/2017 6:08/02/2017 6: 42am Mean Corpuscular Hemoglobin 32.6 pg H 28-32 08/02/2017 6:2017 6:42am Mean Corpuscular Hemoglobin Concent 32.3 g/dL 31-35 08/02/2017 6:08/02/2017 6:42am Red Cell Distribution Width 14.2 % 11.7-14.4 08/02/2017 6:2017 6:42am Platelet Count 153 x10e3/uL 140-360 08/02/2017 6:08/02/2017 6: 42am Neutrophils (%) (Auto) 26.0 % L 38.7-80.0 08/02/2017 6:08/02/2017 6 :42am Lymphocytes (%) (Auto) 34.0 % 18.0-39.1 08/02/2017 6:08/02/2017 6: 42am Monocytes (%) (Auto) 36.1 % H 4.4-11.3 08/02/2017 6:08/02/2017 6: 42am Eosinophils (%) (Auto) 3.3 % 0.0-6.0 08/02/2017 6:08/02/2017 6: 42am Basophils (%) (Auto) 0.3 % 0.0-1.0 08/02/2017 6:08/02/2017 6:42am IM GRANULOCYTES % 0.3 % 0.0-1.0 08/02/2017 6:08/02/2017 6:42am Neutrophils # (Auto) 1.6 L 2.1-6.9 08/02/2017 6:08/02/2017 6: 42am Lymphocytes # (Auto) 2.2 1.0-3.2 08/02/2017 6:30am 08/02/2017 6:42am Monocytes # (Auto) 2.3 H 0.2-0.8 08/02/2017 6:30am 08/02/2017 6:42am Eosinophils # (Auto) 0.2 0.0-0.4 08/02/2017 6:30am 08/02/2017 6:42am Basophils # (Auto) 0.0 0.0-0.1 08/02/2017 6:30am 08/02/2017 6:42am Absolute Immature Granulocyte (auto 0.02 x10e3/uL 0-0.1 08/02/2017 6: 30am 08/02/2017 6:42am Differential Total Cells Counted 100 08/02/2017 6:30am 08/02/2017 8 :54am Neutrophils % (Manual) 24 % L 40-74 08/02/2017 6:30am 08/02/2017 8:54am Lymphocytes % (Manual) 31 % 19-48 08/02/2017 6:30am 08/02/2017 2:30pm Monocytes % (Manual) 42 % H 3.4-9.0 08/02/2017 6:30am 08/02/2017 2:30pm Eosinophils % (Manual) 3 % 0-7 08/02/2017 6:30am 08/02/2017 8:54am Myelocytes % 1 % H 0-0 07/30/2017 5:55am 07/30/2017 7:43am Blast Cells % 1 07/31/2017 6:00am 07/31/2017 8:32am Nucleated Red Blood Cells 4 07/30/2017 5:55am 07/30/2017 7:43am Platelet Estimate ADEQUATE 08/02/2017 6:30am 08/02/2017 8:54am Platelet Morphology Comment NORMAL 08/02/2017 6:30am 08/02/2017 8: 54am Hypochromasia SLIG 07/31/2017 6:00am 07/31/2017 8:32am Poikilocytosis SLIGHT 07/31/2017 6:00am 07/31/2017 8:32am Anisocytosis SLIGHT 07/31/2017 6:00am 07/31/2017 8:32am Macrocytosis MODERATE 08/02/2017 6:30am 08/02/2017 8:54am Red Cell Morphology Comment ABNORMAL 08/02/2017 6:3008/02/2017 8 :54am Urine Color YELLOW YELLOW 07/31/2017 1:30am 07/31/2017 3:04am Urine Clarity SL CLOUDY H CLEAR 07/31/2017 1:30am 07/31/2017 3:04am Urine Specific Moore 1.015 1.010-1.025 07/31/2017 1:30am 2017 3:04am Urine pH 5 5 - 7 07/31/2017 1:3007/31/2017 3:04am Urine Leukocyte Esterase 2+ H NEGATIVE 07/31/2017 1:3007/31/2017 3: 04am Urine Nitrite NEGATIVE NEGATIVE 07/31/2017 1:3007/31/2017 3:04am Urine Protein 1+ H NEGATIVE 07/31/2017 1:3007/31/2017 3:04am Urine Glucose (UA) NEGATIVE NEGATIVE 07/31/2017 1:3007/31/2017 3: 04am Urine Ketones NEGATIVE NEGATIVE 07/31/2017 1:3007/31/2017 3:04am Urine Urobilinogen 0.2 mg/dL 0.2 - 1 07/31/2017 1:30am 07/31/2017 3: 04am Urine Bilirubin NEGATIVE NEGATIVE 07/31/2017 1:30am 07/31/2017 3: 04am Urine Blood NEGATIVE NEGATIVE 07/31/2017 1:30am 07/31/2017 3:04am Urine WBC >50 /HPF H 0-5 07/31/2017 1:30am 07/31/2017 3:04am Urine RBC 0-5 /HPF 0-5 07/31/2017 1:30am 07/31/2017 3:04am Urine Bacteria RARE /HPF NONE 07/31/2017 1:30am 07/31/2017 3:04am Urine Epithelial Cells FEW /LPF NONE 07/31/2017 1:3007/31/2017 3: 04am Sodium Level 138 mmol/L 136-145 08/02/2017 6:30am 08/02/2017 7:08am Potassium Level 3.9 mmol/L 3.5-5.1 08/02/2017 6:30am 08/02/2017 7:08am Chloride Level 109 mmol/L H 98-107 08/02/2017 6:30am 08/02/2017 7:08am Carbon Dioxide Level 24 mmol/L 22-29 08/02/2017 6:30am 08/02/2017 7: 08am Anion Gap 8.9 mmol/L 8-16 08/02/2017 6:30am 08/02/2017 7:08am Blood Urea Nitrogen 41 mg/dL H 7-26 08/02/2017 6:30am 08/02/2017 7:08am Creatinine 1.39 mg/dL H 0.72-1.25 08/02/2017 6:30am 08/02/2017 7:08am BUN/Creatinine Ratio 29 H 6-08/02/2017 6:30am 08/02/2017 7:08am Estimat Glomerular Filtration Rate 60 ML/MIN 60- 08/02/2017 6:30am 7:08am Ranges were taken from the National Kidney Disease Education Program and the National [employer] literature. Reference ranges: 60 or greater: Normal 16-59 (for 3 consecutive months): Chronic kidney disease 15 or less: Kidney failure Glucose Level 83 mg/dL 74-118 08/02/2017 6:30am 08/02/2017 7:08am Calcium Level 9.1 mg/dL 8.4-10.2 08/02/2017 6:30am 08/02/2017 7:08am Bedside Glucose 133 mg/dL H 70-120 08/02/2017 11:09am 08/02/2017 11: 59am Meter ID: [id number] Hemoglobin A1c Percent 5.4 % 4.0-7.0 07/30/2017 5:55am 07/30/2017 6: 39am Phosphorus Level 3.9 MG/DL 2.3-4.7 07/30/2017 5:55am 07/30/2017 6:44am Magnesium Level 1.8 MG/DL 1.3-2.1 07/30/2017 5:55am 07/30/2017 6:44am Iron Level 56 ug/dL L 65-175 07/30/2017 5:55am 07/30/2017 10:37am Total Iron Binding Capacity 266 ug/dL 261-478 07/30/2017 5:55am 2017 10:37am Percent Iron Saturation 21 % 15-50 07/30/2017 5:55am 07/30/2017 10: 37am Transferrin 190 mg/dL 174-364 07/30/2017 5:55am 07/30/2017 10:37am Total Bilirubin 0.5 mg/dL 0.2-1.2 07/30/2017 5:55am 07/30/2017 6:44am Aspartate Amino Transf (AST/SGOT) 14 IU/L 5-34 07/30/2017 5:55am 2017 6:44am Alanine Aminotransferase (ALT/SGPT) 34 IU/L 0-55 07/30/2017 5:55am 02/2018 6:44am Total Protein 6.7 g/dL 6.5-8.1 07/30/2017 5:55am 07/30/2017 6:44am Albumin 2.6 g/dL L 3.5-5.0 07/30/2017 5:55am 07/30/2017 6:44am Globulin 4.1 g/dL H 2.3-3.5 07/30/2017 5:55am 07/30/2017 6:44am Albumin/Globulin Ratio 0.6 L 0.8-2.0 07/30/2017 5:55am 07/30/2017 6: 44am Alkaline Phosphatase 62 IU/L 40-150 07/30/2017 5:55am 07/30/2017 6: 44am Triglycerides Level 308 MG/DL H 0-149 07/30/2017 5:55am 07/30/2017 6: 44am Cholesterol Level 239 MD/DL H 0-199 07/30/2017 5:55am 07/30/2017 6:44am Less than 200 mg/dL Low Risk 201 - 239 mg/dL Borderline Risk 240 mg/dl and greater High Risk LDL Cholesterol 148 MG/DL H 60-130 07/30/2017 5:55am 07/30/2017 6:44am HDL Cholesterol 29 MG/DL L 40-60 07/30/2017 5:55am 07/30/2017 6:44am Cholesterol/HDL Ratio 8.2 H 3.9-4.7 07/30/2017 5:55am 07/30/2017 6: 44am Thyroid Stimulating Hormone (TSH) 0.746 uIU/mL 0.350-4.940 07/30/2017 5: 55am 07/30/2017 7:32am Stool Occult Blood POSITIVE H NEGATIVE 07/31/2017 9:55am 07/31/2017 10 :33am Microbiology Results Procedure Source Organism/Result Collection Date/Time Result Date/Time Result Status Urine Culture Urine,Clean Catch ENTEROCOCCUS FAECALIS 07/31/2017 1:30am 10:50am Final PSEUDOMONAS AERUGINOSA 07/31/2017 1:30am 08/02/2017 10:50am Final Blood Culture Blood NO GROWTH AFTER 72 HOURS 11:40am 08/02/2017 11:49am Preliminary Blood Culture Blood STAPHYLOCOCCUS SP COAG NEG 07/30/2017 11:46am 2017 9:54am Preliminary Procedures Procedure Status Date Provider(s) Computed tomography of brain without radiopaque contrast Active 07/29/17 TRACI DOSS MD Ultrasound, renal Active 07/30/17 NEREYDA CADET MD, ABIM Encounters Encounter Location Arrival/Admit Date Discharge/Depart Date Attending Provider Discharged Inpatient [facility] 07/29/17 3:46pm 08/02/17 5:22pm SHANE FERNANDO MD Discharged Inpatient (obs) [facility] 07/09/17 7:31pm 3:54pm SHANE FERNANDO MD
[2017-09-04] MEDS ORDERED: CEFTRIAXONE SOD 1 GM VIAL IV ONE (21:00)
[2017-09-04] MEDS ORDERED: ACETAMINOPHEN 325 MG TAB PO ONE (21:00)
[2017-09-04] MEDS ORDERED: SODIUM CHLORIDE 0.9% 1000ML 1,000 ML IV ONE (21:00)
[2017-09-04] MEDS ORDERED: ACETAMINOPHEN 1000 MG/100 ML IV ONE (21:03)
[2017-09-04 22:27] LABS: CLARITY,URINE SL CLOUDY (CLEAR); COLOR,URINE YELLOW (YELLOW)
[2017-09-04 22:28] LABS: BILIRUBIN,URINE NEGATIVE (NEGATIVE); KETONES,URINE NEGATIVE (NEGATIVE); LEUKOCYTE ESTERASE ,URINE NEGATIVE (NEGATIVE); NITRITE,URINE NEGATIVE (NEGATIVE); PROTEIN,URINE DIPSTICK 2+ (NEGATIVE); URINE UROBILINOGEN 0.2 mg/dL (0.2 - 1)
[2017-09-04 22:28] LABS: BASOPHILS % 0.1 % (0.0-1.0); HEMATOCRIT 30.4 % (38.2-49.6); HEMOGLOBIN 9.9 g/dL (14.0-18.0); LYMPHOCYTES # (AUTO) 1.1 (1.0-3.2); LYMPHOCYTES % 5.7 % (18.0-39.1); MEAN CORPUSCULAR HEMOGLOBIN 33.7 pg (28-32); MEAN CORPUSCULAR HGB CONC 32.6 g/dL (31-35); MEAN CORPUSCULAR VOLUME 103.4 fL (81-99); MONOCYTES # (AUTO) 3.1 (0.2-0.8); MONOCYTES % 16.1 % (4.4-11.3); NEUTROPHILS # (AUTO) 14.8 (2.1-6.9); NEUTROPHILS % 77.4 % (38.7-80.0); PLATELET COUNT 274 x10e3/uL (140-360); RED BLOOD COUNT 2.94 x10e6/uL (4.3-5.7); RED CELL DISTRIBUTION WIDTH 14.3 % (11.7-14.4)
[2017-09-04 22:52] LABS: AMORPHOUS SEDIMENT,URINE MODERATE (FEW); EPITHELIAL CELLS,URINE MODERATE /LPF; RBC,URINE 0-5 /HPF (0-5); WBC,URINE (MAN) 0-5 /HPF (0-5)
[2017-09-04 23:02] LABS: ALBUMIN 2.8 g/dL (3.5-5.0); ALBUMIN/GLOBULIN RATIO 0.7 (0.8-2.0); CALCIUM 8.5 mg/dL (8.4-10.2); CREATININE, SERUM 2.99 mg/dL (0.72-1.25)
[2017-09-04 23:07] LABS: CREATINE KINASE MB 0.8 ng/mL (0-5.0)
[2017-09-04] MEDS ORDERED: DIATRIZOATE MEGL/DIATRIZOA SOD 30 ML BTL PO ONE (23:10)
--- NOTE | 2017-09-04 23:47 | Diagnostic Imaging Report ---
EXAMINATION: CHEST SINGLE (PORTABLE) INDICATION: Fever. COMPARISON: 07/30/2017 FINDINGS: TUBES and LINES: None. LUNGS: Lungs are not well inflated. Left lower lobe airspace opacity in the retrocardiac space. PLEURA: No pleural effusion or pneumothorax. HEART AND MEDIASTINUM: Cardiac size is mildly enlarged. There are atherosclerotic calcifications within the aorta. BONES AND SOFT TISSUES: No acute osseous lesion. Soft tissues are unremarkable. UPPER ABDOMEN: No free air under the diaphragm. IMPRESSION: Left lower lobe airspace opacity may represent atelectasis or developing infection. Signed by: Dr. King Duran M.D. on 09/04/2017 11:44 PM
[2017-09-05] VITALS (7 sets, daily range): BP systolic 173–187; BP diastolic 74–88
[2017-09-05] MEDS ORDERED: ATORVASTATIN CA20 MG PO (00:07)
[2017-09-05] MEDS ORDERED: TRIAMCINOLONE A15 G2 TOP (00:07)
[2017-09-05] MEDS ORDERED: AZITHROMYCIN 500MG/NS 250 ML 250 ML IV STA (00:26)
--- NOTE | 2017-09-05 01:29 | Diagnostic Imaging Report ---
EXAM: CT Abdomen and Pelvis WITHOUT contrast INDICATION: Fever, vomiting COMPARISON: None. TECHNIQUE: Abdomen and pelvis were scanned utilizing a multidetector helical scanner from the lung base to the pubic symphysis without administration of IV contrast. Absence of intravenous contrast decreases sensitivity for detection of focal lesions and vascular pathology. Coronal and sagittal reformations were obtained. Routine protocol was performed. IV CONTRAST: None. ORAL CONTRAST: Water RADIATION DOSE: Total DLP: 691.64 mGy*cm Estimated effective dose: (DLP x 0.015 x size factor) mSv COMPLICATIONS: None FINDINGS: LINES and TUBES: None. LOWER THORAX: Left lower lobe airspace opacity with air bronchogram associated with bilateral pleural effusions left greater than right. Small pericardial effusion present. Calcified granuloma noted in the left lower lobe. HEPATOBILIARY: No focal hepatic lesions. No biliary ductal dilation. GALLBLADDER: There is layering sludge in the gallbladder No wall thickening. SPLEEN: Evidence of splenectomy. PANCREAS: No focal masses or ductal dilatation. ADRENALS: No adrenal nodules KIDNEYS/URETERS: No hydronephrosis. No cystic or solid mass lesions. No stones. GI TRACT: No abnormal distention, wall thickening, or evidence of bowel obstruction. Appendix is not clearly identified. There is however no fat stranding or adenopathy in the right lower quadrant to suggest appendicitis. PELVIC ORGANS/BLADDER: Unremarkable. LYMPH NODES: No lymphadenopathy. VESSELS: There is moderate atherosclerotic disease in the aorta and major arterial branches. PERITONEUM / RETROPERITONEUM: No free air or fluid. BONES: There are degenerative changes in the lumbar spine. SOFT TISSUES: Unremarkable. IMPRESSION: 1. Findings are compatible with left lower lobe pneumonia and parapneumonic effusion. 2. Trace of right pleural effusion and pericardial effusion. 3. Evidence of a splenectomy. Signed by: Dr. King Duran M.D. on 09/05/2017 1:25 AM
[2017-09-05] MEDS ORDERED: SODIUM CHLORIDE 0.9% 1000ML 1,000 ML IV SCH ×3 (02:06→12:00)
[2017-09-05] MEDS ORDERED: ONDANSETRON HCL 4 MG ORAL DISINTEGRATING TAB PO PRN (02:15)
[2017-09-05] MEDS ORDERED: DEXTROSE 50% SYRINGE 50 ML IV PRN (02:15)
[2017-09-05] MEDS ORDERED: CEFTRIAXONE SOD 1 GM VIAL IV SCH (02:15)
[2017-09-05] MEDS: ALBUTEROL SULF 0.083% NEB SOLN 3 ML NEB NEB SCH ×6 (02:15→23:00)
--- OUTSIDE RECORDS SUMMARY | 2017-09-05 02:22 | XMS REPORT | Clinical Summary ---
Author Author MAHNAZ [facility] Address Unknown Phone Unavailable Care Team Providers Care Bowstring Maker Name Role Phone PCP Unavailable Allergies Active [...] (HCC) 04/27/2017 Diastolic CHF, acute on chronic ([facility]) 04/27/2017 Pleural effusion 04/27/2017 Hypertension 04/27/2017 Hyperlipidemia 04/27/2017 C. difficile diarrhea 04/27/2017 Pericardial effusion 04/27/2017 Bilateral pneumonia 04/27/2017 NSTEMI (non-ST elevated myocardial infarction) ([facility]) 04/19/2017 (HFpEF) heart failure with preserved ejection fraction ([facility]) 04/19/2017 Essential hypertension 04/19/2017 Influenza A 04/18/2017 DM type 2 (diabetes mellitus, type 2) ([facility]) 04/24/2016 Multiple myeloma ([facility]) 04/24/2016 Encounters Date Type Specialty Care Team Description 04/18/2017 [facility] General Internal Medicine Peter Wren, Influenza A (Primary - Encounter MD Dx);Acute on chronic 04/27/2017 Elen Hernandez congestive heart failureOh MD unspecified congestive Daina Yeboah MD heart failure type ([facility]);EDGARD (acute kidney injury) ([facility]);Acute respiratory failure with hypoxia ([facility]);Severe sepsis ([facility]) 04/18/2017 Orders Only General Internal Medicine after 09/04/2016 Family History Medical History Relation Name Comments [...] Taken Blood Pressure 151/68 04/27/2017 12:18 PM INDUSTRIAL ORGANIZATIONAL PSYCHOLOGIST Pulse 60 04/27/2017 12:18 PM INDUSTRIAL ORGANIZATIONAL PSYCHOLOGIST Temperature 36.2 C (97.2 F) 04/27/2017 12:18 PM INDUSTRIAL ORGANIZATIONAL PSYCHOLOGIST Respiratory Rate 19 04/27/2017 12:18 PM INDUSTRIAL ORGANIZATIONAL PSYCHOLOGIST Oxygen Saturation 97% 04/27/2017 12:18 PM INDUSTRIAL ORGANIZATIONAL PSYCHOLOGIST Inhaled Oxygen - - Concentration Weight 105.3 kg (232 lb 3.2 oz) 04/27/2017 6:00 AM INDUSTRIAL ORGANIZATIONAL PSYCHOLOGIST Height 185.4 cm (6' 1") 04/18/2017 3:03 PM INDUSTRIAL ORGANIZATIONAL PSYCHOLOGIST Body Mass Index 30.64 04/27/2017 6:00 AM INDUSTRIAL ORGANIZATIONAL PSYCHOLOGIST Plan of Treatment Not on file Procedures Procedure Name Priority Date/Time Associated Diagnosis Comments CRITICAL CARE Routine 04/18/2017 Results for this 6:52 PM INDUSTRIAL ORGANIZATIONAL PSYCHOLOGIST procedure are in the results section. after 09/04/2016 Results * RHYTHM STRIP - SCAN (04/29/2017 11:10 AM) * POC-Glucose meter (04/27/2017 4:38 PM) Only the most recent of 38 results within the time period is included. Component Value Ref Range POC-Glucose Meter 208 (H)Comment: TESTED AT [address] 70 - 110 mg /dL [facility] [address] Specimen Performing Laboratory Blood [facility] [address] [address] * XR chest 1 view portable / [...] MD Report Verified Date/Time:04/27/2017 10:19:00 Reading Location: [address] Ortho Consult Reading Room Procedure Note Interface, External Ris In - 04/27/2017 10:21 AM INDUSTRIAL ORGANIZATIONAL PSYCHOLOGIST FINAL REPORT CHEST ONE VIEW HISTORY: Pleural [...] Report Verified Date/Time: 04/27/2017 10:19:00 Reading Location: [address] Ortho Consult Reading Room * CBC [...] 1 % Granulocytes-Relative Specimen Performing Laboratory Blood [address] [address] * CBC with platelet count + automated diff (04/27/2017 5:39 AM) Only the most recent of 5 results within the time period is included. Specimen Performing Laboratory Blood Narrative The following orders were created for panel order CBC with platelet count + automated diff. Procedure Abnormality Status --------- - ------ CBC with platelet count ...[[id number]]AbnormalFinal result Please view results for these tests on the individual orders. * B-type Natriuretic Factor (BNP) (04/27/2017 5:39 AM) Only the most recent of 3 results within the time period is included. Component Value Ref Range BNP 200 (H) 0 - 100 pg/mL Specimen Performing Laboratory Blood [address] [place] [address] * Basic Metabolic Panel (04/27/2017 5:39 AM) [...] FOR DIALYSIS PATIENTS. Specimen Performing Laboratory Blood [address] [address] * Magnesium (04/26/2017 5:21 AM) Only the most recent of 7 results within the time period is included. Component Value Ref Range Magnesium 2.2Comment: Specimen slightly hemolyzed 1.6 - 2.6 mg/dL Specimen Performing Laboratory Blood [address] [address] * CBC (hemogram only) (04/24/2017 4:39 AM) [...] Specimen Performing Laboratory Blood - Arm, Right [address] [address] * TSH/Free T4 If Indicated (04/23/2017 3:43 AM) Component Value Ref Range TSH 0.70 0.35 - 4.94 uIU/mL Specimen Performing Laboratory Blood - Hand, [address] [address] * Phosphorus (04/23/2017 3:43 AM) Component Value Ref Range Phosphorus 3.1 2.3 - 4.7 mg/dL Specimen Performing Laboratory Blood - Hand, [address] [address] * Hemoglobin A1c (04/23/2017 3:43 AM) Component Value Ref Range Hemoglobin A1C 5.9 4.3 - 6.1 % Specimen Performing Laboratory Blood - Hand, [place] [address] * Hepatic function panel (04/23/2017 3:43 AM) [...] U/L Specimen Performing Laboratory Blood - Hand, [address] [address] * Lipid panel (04/23/2017 3:43 AM) Component Value Ref Range Triglycerides 179 mg/dL Cholesterol 140 mg/dL HDL 30 mg/dL LDL Calculated 74 mg/dL Specimen Performing Laboratory Blood - Hand, [address] [address] Narrative Triglyceride Reference Range: Low Risk <150 [id number] High Risk 200-499 Very High Risk>=500 Cholesterol Reference Range: Low Risk <200 [id number] High Risk>240 HDL Cholesterol Reference Range: Low Risk >=60 High Risk <40 LDL Cholesterol Reference Range: Optimal<100 Near [id number] [id number] Very High >=190 * Strep pneumoniae antigen (04/22/2017 7:29 PM) Component Value Ref Range Strep pneumoniae Antigen Presumptive negative for pneumococcal pneumonia - Presumptive negative for see comment pneumococcal pneumonia - see comment, Presumptive negative for pneumococcal meningitis - see comment Specimen Performing Laboratory Urine - Urine, [facility] Unspecified Source [address] [place] [id number] Narrative Presumptive negative for pneumococcal pneumonia, suggesting [...] Specimen Performing Laboratory Urine - Urine, [place] [address] * Occult blood, stool (04/22/2017 11:41 AM) Component Value Ref Range Occult blood Positive (A) Negative Specimen Performing [place] [address] * Clostridium difficile Toxin PCR (04/22/2017 10:47 AM) Component Value Ref Range C.Diff Toxin, PCR Detected (A) Not Detected Specimen Performing [place] [address] Narrative This qualitative real-time polymerase chain reaction [...] rods Specimen Performing Laboratory Sputum - Expectorated [address] [address] * CT chest without IV contrast (04/21/2017 [...] MD Report Verified Date/Time:04/21/2017 10:06:22 Reading Location: [facility] B1 C013Y CT Body Reading Room Procedure Note Interface, External Ris In - 04/21/2017 10:08 AM INDUSTRIAL ORGANIZATIONAL PSYCHOLOGIST FINAL REPORT TECHNIQUE: CT scan of the [...] Report Verified Date/Time: 04/21/2017 10:06:22 Reading Location: [address] Body Reading Room * Manual Differential (04/21/2017 4:53 AM) Only the most recent of 2 results within the time period is included. Specimen Performing Laboratory Blood [address] [address] * Vancomycin level, trough (04/20/2017 4:57 PM) Component Value Ref Range Vancomycin Tr 11.8 10.0 - 20.0 ug/mL Specimen Performing Laboratory Blood [address] [address] Narrative Draw trough level prior to dose administration. * Troponin I (04/20/2017 8:36 AM) Only the most recent of 5 results within the time period is included. Component Value Ref Range Troponin I 3.04 (HH) 0.00 - 0.03 ng/mL Specimen Performing [place] [address] Narrative Troponin I (TnI) levels must be [...] Index 1.5 % Specimen Performing [place] [address] Narrative CK-MB Reference Range: <6.7Normal 6.7-10.0Borderline >10.0 Abnormal * ECHOCARDIOGRAM REPORT - SCAN (04/20/2017 7:20 AM) * Calcium, Ionized (04/20/2017 5:16 AM) Component Value Ref Range Calcium, Ion 1.10 (L) 1.12 - 1.27 mmol/L pH, Blood 7.44 Specimen Performing [place] [address] * 2D Echo W/Doppler (Sepsis Protocol) (04/19/2017 12:16 PM) Component Value Ref Range Ejection Fraction Specimen Performing Laboratory 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 Aortic Valve Mild AoV cusp thickening. Cohq-da-amdmespc AoV cusp calcification. 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 Aortic Valve Mild AoV cusp thickening. Hsxq-ew-ovypiysw AoV cusp calcification. No evidence of aortic [...] - 51.0 % Specimen Performing Laboratory Blood [address] [address] * Lactic acid, venous, whole blood (04/19/2017 10:33 AM) Only the most recent of 5 results within the time period is included. Component Value Ref Range Lactate, Venous 1.0 0.5 - 2.2 mmol/L Specimen Performing Laboratory Blood [address] [address] Narrative Effective 08/23/2015: Units/Reference Range Change New: 0.5-2.2 mmol/LPrevious: 5-20 mg/dL * aPTT (04/19/2017 4:58 AM) Component Value Ref Range PTT 26.7 22.5 - 36.0 seconds Specimen Performing Laboratory Blood [address] [address] Narrative Prior to initiating heparin * Platelet count (04/19/2017 4:58 AM) Component Value Ref Range Platelets 154 150 - 450 K/CU MM Specimen Performing Laboratory Blood [address] [address] Narrative Baseline and daily starting prior to initiation of heparin infusion * ECG 12 lead (04/19/2017 4:11 AM) Only the most recent of 2 results within the time period is included. Specimen Performing Laboratory GE MUSE Narrative Ventricular Rate 98 BPM Atrial Rate 98 BPM P-R Interval 192 ms QRS Duration 66 ms Q-T Interval 330 ms QTC Calculation(Bazett) 421 ms P [place] 48 degrees R [place] 63 degrees T [place] 84 degrees Normal sinus rhythm Normal ECG When compared with ECG of 18-APR-2017 15:52, Premature atrial complexes are no longer Present T wave inversion no longer evident in Inferior leads T wave inversion no longer evident in Lateral leads Confirmed by MD WYNNE PABLO ([id number]) on 04/20/2017 12:52:47 PM Procedure Note Interface, External Ris In - 04/20/2017 12:52 PM INDUSTRIAL ORGANIZATIONAL PSYCHOLOGIST Ventricular Rate 98 BPM Atrial Rate 98 BPM P-R Interval 192 ms QRS Duration 66 ms Q-T Interval 330 ms QTC Calculation(Bazett) 421 ms P [place] 48 degrees R [place] 63 degrees T [place] 84 degrees Normal sinus rhythm Normal ECG [...] growth Specimen Performing Laboratory Urine - Urine, [address] [address] * Urinalysis w/ Microscopic (04/18/2017 10:38 PM) Component Value Ref Range Color, UA Yellow Clarity, UA Hazy Specific [place], UA 1.011 1.001 - 1.035 pH, UA [...] Specimen Performing Laboratory Urine - Urine, [place] [address] [address] * Blood gas, arterial (04/18/2017 10:37 PM) [...] 60.0 % Specimen Performing Laboratory Blood, Arterial [address] [address] * ED ECG Interpretation (04/18/2017 6:52 PM) [...] - 4.3 ng/mL Specimen Performing Laboratory Blood [facility], [facility] , [facility] [address] [place] [address] * Rapid Troponin I (04/18/2017 3:40 PM) Component Value Ref Range Rapid Troponin I 0.12 (H) <0.05 ng/mL Specimen Performing Laboratory Blood [facility], [facility] , [facility] [address] [place] [address] * Blood culture #2 (04/18/2017 3:31 PM) Only the most recent of 2 results within the time period is included. Component Value Ref Range Result No growth in 5 days Specimen Performing Laboratory Blood - Arm, Right [address] [address] * Rapid influenza A&B screen (04/18/2017 3:31 PM) Component Value Ref Range Rapid Influenza A Antigen Positive (A) Negative, Inconclusive Rapid influenza B Antigen Negative Negative, Inconclusive Specimen Performing Laboratory Nasal - Nasopharyngeal [facility], Swab [facility] [address] [place] [address] * Comprehensive metabolic panel (04/18/2017 3:30 PM) [...] DIALYSIS PATIENTS. Specimen Performing Laboratory Blood [facility] [address] [place] [address] after 09/04/2016
[2017-09-05] MEDS: AZITHROMYCIN 500MG/SOD CHL 0.9% 250ML BAG IV SCH (02:36)
[2017-09-05] MEDS: IPRATROPIUM BROMIDE 0.02% 2.5 ML NEB NEB SCH ×3 (06:00→20:00)
[2017-09-05] MEDS: ACETAMINOPHEN 325 MG TAB PO PRN ×3 (06:43→21:09)
[2017-09-05] MEDS: INSULIN REGULAR, HUMAN 100 UNIT/1 ML 3ML VIAL SQ SCH ×4 (07:30→21:00)
[2017-09-05 07:58] LABS: CREATINE KINASE MB 1.5 ng/mL (0-5.0)
[2017-09-05] MEDS: TRIAMCINOLONE ACET 0.1% CREAM 15 GM TUBE TOP SCH ×3 (09:00→17:00)
[2017-09-05] MEDS ORDERED: LATANOPROST(OPTH) 2.5 ML BTL OP SCH (09:00)
[2017-09-05] MEDS ORDERED: LISINOPRIL 10 MG TAB PO SCH (09:00)
[2017-09-05] MEDS: ASPIRIN 81 MG CHEW TAB PO SCH (09:12)
[2017-09-05] MEDS: TAMSULOSIN HCL 0.4 MG CAP PO SCH (09:12)
[2017-09-05] MEDS: HYDRALAZINE HCL 25 MG TAB PO SCH ×2 (09:12→17:27)
[2017-09-05] MEDS: GABAPENTIN 300 MG CAP PO SCH ×2 (09:12→17:27)
[2017-09-05] MEDS: ACYCLOVIR 200 MG CAP PO SCH (09:13)
[2017-09-05] MEDS: NIFEDIPINE CR 30 MG TAB PO SCH (09:13)
[2017-09-05] MEDS ORDERED: VANCOMYCIN 1GM/NS 250 ML 250 ML IV ONE (12:00)
[2017-09-05 12:09] LABS: BASOPHILS % 0.1 % (0.0-1.0); HEMATOCRIT 28.2 % (38.2-49.6); HEMOGLOBIN 9.4 g/dL (14.0-18.0); LYMPHOCYTES # (AUTO) 1.6 (1.0-3.2); LYMPHOCYTES % 7.5 % (18.0-39.1); MEAN CORPUSCULAR HEMOGLOBIN 33.5 pg (28-32); MEAN CORPUSCULAR HGB CONC 33.3 g/dL (31-35); MEAN CORPUSCULAR VOLUME 100.4 fL (81-99); MONOCYTES # (AUTO) 2.7 (0.2-0.8); MONOCYTES % 12.5 % (4.4-11.3); NEUTROPHILS # (AUTO) 16.9 (2.1-6.9); NEUTROPHILS % 79.2 % (38.7-80.0); PLATELET COUNT 254 x10e3/uL (140-360); RED BLOOD COUNT 2.81 x10e6/uL (4.3-5.7); RED CELL DISTRIBUTION WIDTH 14.4 % (11.7-14.4)
[2017-09-05 12:24] LABS: INR 1.37; PROTHROMBIN TIME 15.9 seconds (11.9-14.5)
[2017-09-05 12:25] LABS: PARTIAL THROMBOPLASTIN TIME 45.6 seconds (23.8-35.5)
[2017-09-05] MEDS: CEFEPIME HCL 1 GM VIAL IV SCH ×2 (12:30→23:45)
[2017-09-05 12:35] LABS: ALBUMIN 2.4 g/dL (3.5-5.0); ANION GAP 15.7 mmol/L (8-16); BILIRUBIN,DIRECT 0.4 mg/dL (0.0-0.5); CREATININE, SERUM 3.78 mg/dL (0.72-1.25); POTASSIUM 3.7 mmol/L (3.5-5.1)
[2017-09-05 12:41] LABS: CREATINE KINASE MB 1.4 ng/mL (0-5.0)
--- NOTE | 2017-09-05 13:38 | Consultation ---
DATE OF CONSULTATION: September 05, 2017 PULMONARY CONSULTATION REASON FOR CONSULT: Pneumonia, possible parapneumonic effusion and hemoptysis. CHIEF COMPLAINT: Patient presented to the emergency room with complaints of fever and shortness of breath, also productive cough for 2 days. HISTORY OF PRESENT ILLNESS: Mr. Jenkins is a 76-year-old male who has a history of diabetes, hypertension, multiple myeloma, presented with cough productive of greenish phlegm and also had a small amount of blood mixed with the phlegm going on for last few days. He also reports mild shortness of breath. Patient has been a smoker for 25 years and quit 3 months ago. He denies any chest pain, nausea, vomiting. In the emergency room, patient underwent a CT of the abdomen/pelvis which was reported as left lower lobe pneumonia and evidence of splenectomy. Patient has been started on IV cefepime and Flagyl along with azithromycin. He is on acyclovir, which seems like a suppressive dose as he is on daily acyclovir. REVIEW OF SYSTEMS: GENERAL: Fever and chills. HEAD: Denies any head trauma. ENT: Denies any earache. CVS: Denies any chest pain. RESPIRATORY: Shortness of breath. GI: Denies any nausea, vomiting. REST OF THE REVIEW OF SYSTEMS: Negative except as in history of present illness. PAST MEDICAL HISTORY: Diabetes, hypertension, hyperlipidemia, multiple myeloma. FAMILY HISTORY AND SOCIAL HISTORY: He quit smoking 3 months ago, does not drink. Used to smoke a couple of cigarettes to half a pack, smoked for 20+ years. 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 PHYSICAL EXAMINATION: VITALS: Temperature 102.7, pulse of 98, blood pressure 175/74, respiratory rate of 18 to 20, O2 sat 97% on 2 liters. SKIN: Warm and dry. HEENT: Head atraumatic, normocephalic. NECK: Supple. No JVD. CHEST: He has crackles on the bases and occasional rhonchi. HEART: S1 and S2 audible. No murmurs, gallops or rub. ABDOMEN: Soft, nontender, nondistended. EXTREMITIES: No clubbing, cyanosis or edema. NEUROLOGICALLY: Awake and alert. LABORATORY DATA: White count of 19,000, hemoglobin 9.9, platelets 274. Chemistry: Sodium 135, potassium 4.0, chloride 102, BUN 45, creatinine 2.9. On discharge from this hospital on the July, his creatinine was 1.39. At that time also, he came in with worsening creatinine of 3.72. A CT of the abdomen/pelvis was done. I have reviewed the images. The lower cuts on the CT abdomen are showing the lungs, and there is possibility of left lower lobe pneumonia. The effusion is very small. ASSESSMENT AND PLAN: A 76-year-old male with a history of multiple myeloma presented with fever, chills, possible left lower lobe pneumonia on the CT abdomen/pelvis images reviewed. With acute kidney injury on chronic kidney disease. History of hypertension and diabetes. CURRENT PROBLEMS: 1. Left lower lobe pneumonia and hemoptysis. Will need further studies to evaluate the left lower lobe pneumonia. I will do a CT chest without contrast to further evaluate. If the hemoptysis is getting worse, then patient may need bronchoscopy. I think that it is probably due to pneumonia and it will get better once the pneumonia has improved. Reviewed the images of the CT abdomen and lower cuts of CT abdomen. The effusions appear to be very small. However, I cannot comment completely since the CT chest is not done yet. Unlikely that he will need a thoracentesis at this point. 2. Continue the patient on IV cefepime, Flagyl and azithromycin for now. 3. I will also send a sputum culture. 4. History of multiple myeloma, likely anemia due to multiple myeloma which is stable. 5. Hypertension. Blood pressure is on the higher side. Can continue the patient on antihypertensive medications, which has been ordered. 6. Possible wheezing and rhonchi. Approximate history of smoking is 20 to 25+ years. I will continue the patient on nebulizer treatment, which has been ordered. Hold off on IV steroids at this point. 7. Oxygen as needed to keep the O2 sat more than or equal to 92%. Case discussed with Dr. Mcclure as well. Job#: [id number] EV
--- NOTE | 2017-09-05 14:34 | Diagnostic Imaging Report ---
PROCEDURE: CT CHEST WITHOUT CONTRAST CT scan of the chest WITHOUT intravenous contrast, using standard protocol. TECHNIQUE: The chest was scanned utilizing a multidetector helical scanner from the apex to the level of the adrenal glands. No IV contrast was administered per physician's request. Coronal and sagittal multiplanar reformations were obtained. COMPARISON: [facility], CT, CT ABDOMEN/PELVIS WO, 09/05/2017, 0:18. INDICATIONS: PNEUMONIA FINDINGS: Lines/tubes: None. Lungs and Airways: Consolidation with air bronchograms involving the posterior aspect of the left upper lobe (series 3, image 29) as well as greater portion of the left lower lobe (series 3, image 56), with mild sparing of the anterolateral aspect. Atelectatic changes in the right lower lobe. Rest of the lungs is clear. No pulmonary nodules or masses. Airways are clear, without endobronchial lesions. Pleura: Small left pleural effusion. Trace right pleural effusion. Heart and mediastinum: The thyroid is unremarkable. The mild to moderate cardiomegaly. Small pericardial effusion. Atherosclerotic calcification of the aortic valves, coronary arteries and thoracic aortic arch. Aorta is non-aneurysmal. Main pulmonary artery is enlarged, measuring approximately 3.3 cm. Lymph nodes: Enlarged right and left lower paratracheal lymph nodes, measuring 1.3 and 1.2 cm in short axis (series 2, image 38). Mild enlarged subcarinal lymph node measuring 1.3 cm in short axis (series 2, image 53). Mild enlarged right upper paratracheal lymph node, measuring 1.1 cm in short axis (series 2, image 29). Calcified paraesophageal lymph nodes. Difficult to assess for hilar nodes given the lack of intravenous contrast. No axillary adenopathy. Abdomen: Please refer to CT abdomen performed same date for further detail. Bones: No aggressive lytic lesion. Multilevel degenerative disc changes in the thoracic spine. IMPRESSION: 1. Findings consistent with multifocal pneumonia involving the left upper and left lower lobes, in the appropriate clinical setting. 2. Mediastinal adenopathy, likely reactive in the setting of infection. 3. Small left parapneumonic effusion. Trace right pleural effusion. 4. Enlarged main pulmonary artery, suggesting pulmonary hypertension. Fran Hatch M.D. Dictated by: Fran Hatch M.D. on 09/05/2017 at 14:36 Electronically approved by: Fran Hatch M.D. on 09/05/2017 at 14:36
[2017-09-05] MEDS: METRONIDAZOLE 500MG/NS 100ML 100 ML IV SCH ×2 (15:00→21:09)
[2017-09-05] MEDS: HYDRALAZINE HCL 20 MG/ML VIAL IV PRN (15:15)
[2017-09-05] MEDS: LATANOPROST(OPTH) 2.5 ML BTL OP SCH (21:00)
[2017-09-05] MEDS: ATORVASTATIN 20 MG TAB PO SCH (21:00)
[2017-09-05] MEDS: ALPRAZOLAM 1 MG TAB PO SCH ×2 (21:00→23:18)
[2017-09-06] VITALS (26 sets, daily range): BP systolic 116–177; BP diastolic 63–90
[2017-09-06] MEDS: AZITHROMYCIN 500MG/SOD CHL 0.9% 250ML BAG IV SCH (02:13)
[2017-09-06] MEDS: ACETAMINOPHEN 325 MG TAB PO PRN ×4 (02:31→23:19)
[2017-09-06] MEDS: IPRATROPIUM BROMIDE 0.02% 2.5 ML NEB NEB SCH ×4 (02:45→19:05)
[2017-09-06] MEDS: ALBUTEROL SULF 0.083% NEB SOLN 3 ML NEB NEB SCH ×6 (02:45→22:10)
[2017-09-06] MEDS: METRONIDAZOLE 500MG/NS 100ML 100 ML IV SCH (05:31)
[2017-09-06] MEDS: INSULIN REGULAR, HUMAN 100 UNIT/1 ML 3ML VIAL SQ SCH ×4 (07:30→22:00)
[2017-09-06 08:04] LABS: BASOPHILS % 0.1 % (0.0-1.0); HEMATOCRIT 25.7 % (38.2-49.6); HEMOGLOBIN 8.5 g/dL (14.0-18.0); LYMPHOCYTES # (AUTO) 0.8 (1.0-3.2); LYMPHOCYTES % 3.4 % (18.0-39.1); MEAN CORPUSCULAR HEMOGLOBIN 33.5 pg (28-32); MEAN CORPUSCULAR HGB CONC 33.1 g/dL (31-35); MEAN CORPUSCULAR VOLUME 101.2 fL (81-99); MONOCYTES # (AUTO) 2.3 (0.2-0.8); MONOCYTES % 10.5 % (4.4-11.3); NEUTROPHILS # (AUTO) 18.8 (2.1-6.9); PLATELET COUNT 222 x10e3/uL (140-360); RED BLOOD COUNT 2.54 x10e6/uL (4.3-5.7); RED CELL DISTRIBUTION WIDTH 14.9 % (11.7-14.4)
[2017-09-06 08:25] LABS: ALBUMIN/GLOBULIN RATIO 0.5 (0.8-2.0); ANION GAP 17.8 mmol/L (8-16); CALCIUM 8.5 mg/dL (8.4-10.2); CREATININE, SERUM 5.27 mg/dL (0.72-1.25); POTASSIUM 3.8 mmol/L (3.5-5.1)
[2017-09-06] MEDS: TRIAMCINOLONE ACET 0.1% CREAM 15 GM TUBE TOP SCH ×2 (09:00→17:00)
[2017-09-06] MEDS: GABAPENTIN 300 MG CAP PO SCH (09:23)
[2017-09-06] MEDS: HYDRALAZINE HCL 25 MG TAB PO SCH ×2 (09:23→17:30)
[2017-09-06] MEDS: TAMSULOSIN HCL 0.4 MG CAP PO SCH (09:23)
[2017-09-06] MEDS: ASPIRIN 81 MG CHEW TAB PO SCH (09:23)
[2017-09-06] MEDS: ACYCLOVIR 200 MG CAP PO SCH (09:24)
[2017-09-06] MEDS: NIFEDIPINE CR 30 MG TAB PO SCH (09:24)
[2017-09-06 10:04] LABS: BAND NEUTROPHILS % (MANUAL) 8 %; LYMPHOCYTES % (MANUAL) 2 % (19-48); METAMYELOCYTES % (MANUAL) 2 % (0-0); MONOCYTES % (MANUAL) 6 % (3.4-9.0); MYELOCYTES % (MANUAL) 1 % (0-0); NEUTROPHILS % (MANUAL) 81 % (40-74)
[2017-09-06 10:06] LABS: RBC MORPHOLOGY COMMENT NORMAL
[2017-09-06 10:07] LABS: ANISOCYTOSIS SLIGHT; PLATELET ESTIMATE ADEQUATE; PLATELET MORPHOLOGY COMMENT FEW LARGE; TARGET CELLS FEW
--- NOTE | 2017-09-06 13:11 | Diagnostic Imaging Report ---
EXAM: Renal Ultrasound INDICATION: \S\RENAL FAILURE COMPARISON: CT abdomen and pelvis 09/05/2017 , renal ultrasound 07/30/2017 TECHNIQUE: Transverse and longitudinal images of the kidneys and bladder were obtained. FINDINGS: Right Kidney: Size: 10.5 cm, right renal cortex 1.7 cm. Appearance: Normal echogenicity. Collecting system: No hydronephrosis Stones: None Cyst/Mass: None Left Kidney: Size: 10.8 cm, left renal cortex 1.4 cm. Appearance: Normal echogenicity. Collecting system: No hydronephrosis Stones: None Cyst/Mass: 2.0 x 1.4 x 1.3 cm cystic, anechoic lesion in the mid aspect, which is relatively stable. Bladder: No focal lesions. Ureteral jets are not identified. Prostate: 3.0 x 2.6 x 5.1 cm (estimated volume 21.1 cc) IMPRESSION: 1. Normal bilateral renal size. Normal echogenicity. No hydronephrosis, stones or obstruction. Signed by: Dr. Fran Hatch M.D. on 09/06/2017 1:07 PM
[2017-09-06] MEDS: LINEZOLID 600 MG/D5W 300ML 300 ML IV SCH (15:00)
[2017-09-06] MEDS: SODIUM CHLORIDE 0.9% 1000ML 1,000 ML IV SCH (16:00)
--- NOTE | 2017-09-06 16:33 | Consultation ---
DATE OF CONSULTATION: September 06, 2017 NEPHROLOGY CONSULTATION REASON FOR CONSULTATION: Acute kidney injury on chronic kidney disease. REFERRING PHYSICIAN: Dr. Mcclure HISTORY OF PRESENT ILLNESS: This is a 76-year-old gentleman with a past medical history of chronic kidney disease, stage 3, with baseline serum creatinine around 2 mg/dL, diabetes mellitus, hypertension, hyperlipidemia, recent diagnosis of multiple myeloma, status post chemotherapy. He was due for chemotherapy 2 days ago, but he was noted to be running high fever for which it was held. Since then, he has been having cough with greenish phlegm mixed with some blood associated with some fever, chills, shortness of breath, some diarrhea, with somewhat decreased p.o. intake. He came to the hospital with weakness and not feeling well and the above-mentioned problems. His serum creatinine was noted to be above 5 for which nephrology consultation was obtained for further evaluation and management. At the time of my examination, he was resting, but answered my questions appropriately. He denied any chest pain, significant nausea or vomiting, abdominal pain, urinary problems or any focal weakness. PAST MEDICAL AND SURGICAL HISTORY: As above. PERSONAL AND SOCIAL HISTORY: Reformed smoker, quit 3 months ago. MEDICATIONS: See the medication sheet. That was reviewed. He was on torsemide among other medications at home. PHYSICAL EXAMINATION VITALS: I's and O's are 3500 in and 300 out. Blood pressure is 154/65, respirations 20, heart rate 112, temperature 100.7. HEENT: Head was atraumatic and normocephalic. Pupils were reactive to light. Mouth: Oral mucosa was dry. NECK: Supple. There is no significant lymphadenopathy or thyromegaly. CHEST: Scattered coarse crackles. HEART: S1 and S2, tachycardia. ABDOMEN: Soft. Bowel sounds are positive. EXTREMITIES: No edema. 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 Cranial nerves were intact. There was no gross motor deficit noted. LABS: CT of the chest showed bilateral airspace disease. Sodium 135, potassium 3.8, chloride 105.4, CO2 17, anion gap 17.8, BUN 63, creatinine 5.27. Serum creatinine yesterday was 3.8. Prior to that, it was 3 on the 04 of September. White cell count 22,000, hemoglobin 8.5, hematocrit 25.7, platelets 222. IMPRESSION 1. Uwsiy-tu-nhucssz kidney disease, most likely secondary to acute tubular necrosis from infection/pneumonia with suddenly increasing BUN and creatinine but nonoliguria. His underlying chronic kidney disease is thought to be secondary to nephrosclerosis. 2. Bilateral pneumonia with increasing white cell count on multiple antibiotics. 3. Anemia. 4. Multiple myeloma. PLAN: Strict I's and O's. No nonsteroidal anti-inflammatory drugs, SHIREEN inhibitor, IV dye, or ARB. UA spot urine sodium and creatinine, ultrasound of the kidneys, CBC comprehensive profile in a.m. Continue IV fluids with normal saline for now. No acute indication for dialysis at the present time, but I will be following the patient closely. The case was discussed with the family. Thank you for this consultation. Job#: [id number]
[2017-09-06 18:17] LABS: BILIRUBIN,URINE NEGATIVE (NEGATIVE); CLARITY,URINE SL CLOUDY (CLEAR); COLOR,URINE YELLOW (YELLOW); KETONES,URINE NEGATIVE (NEGATIVE); LEUKOCYTE ESTERASE ,URINE NEGATIVE (NEGATIVE); NITRITE,URINE NEGATIVE (NEGATIVE); PROTEIN,URINE DIPSTICK 2+ (NEGATIVE); URINE UROBILINOGEN 0.2 mg/dL (0.2 - 1)
--- NOTE | 2017-09-06 18:20 | Consultation ---
DATE OF CONSULTATION: September 06, 2017 REASON FOR CONSULTATION: Pneumonia, multifocal, in a patient who is immunocompromised. HISTORY OF PRESENT ILLNESS: This patient is a very pleasant, 76-year-old, male, who has history of multiple myeloma. He is on chemotherapy under the care of Tadeo. History of smoking. He comes in with fever and chills. Apparently he was supposed to get chemotherapy, but it was not given to him because he was running fever. The patient was sent home with some Tylenol. The noted that he is coughing up blood. He was not feeling well the next day so he came to the emergency room. The patient is currently in the intensive care unit. Patient was a little bit lethargic when he first came. His is at the bedside. He has already been seen by critical care and renal. PAST MEDICAL HISTORY: Multiple myeloma, diabetes mellitus, hypertension, hyperlipidemia. Now he is in acute renal failure. PAST SURGICAL HISTORY: Denies. SOCIAL HISTORY: He smoked 1 pack a day for several years, for 20 years plus a half-pack a day. REVIEW OF SYSTEMS: It is hard to tell now. He is currently sleeping. Apparently, he was lethargic, but now he is more alert. He is sleeping, and the said that it is only fever and coughing up blood. Review of systems otherwise, according to the , is unremarkable. LABORATORY DATA: Reviewed. Blood cultures are negative. So far, no growth. White count on admission was 19.05, today 22.08. Hemoglobin 8.5, hematocrit 25. Sodium 135, potassium 3.8, creatinine 5.7. His chest x-ray was reviewed. Chest CT showed multifocal pneumonia. PHYSICAL EXAMINATION GENERAL: He is currently sleeping. He is arousable. VITALS: Stable currently, afebrile at the present time. HEENT: Not icteric. NECK: Supple. CHEST: A few crackles at bases. COR: S1 and S2, no murmur. ABDOMEN: Soft. Bowel sounds present. No tenderness. EXTREMITIES: No edema. IMPRESSION 1. Pneumonia in a patient immunocompromised. 2. Acute tubular necrosis, probably chronic kidney disease. 3. Multiple myeloma. 4. Concern about malignancy in a patient who had multiple myeloma. RECOMMENDATIONS 1. Will continue with cefepime at renal dose. Will add linezolid, Zyvox 600 q.12 and continue azithromycin. I think we can stop the Flagyl. Will need to follow up until total resolution and will follow up the mediastinal adenopathy. 2. For ATN and chronic kidney disease, renal is following. 3. Certainly, the patient is at risk for malignancy with a history of smoking and multiple myeloma, etc. 1. Will follow with you. Discussed with the . Job#: [id number]
[2017-09-06 18:29] LABS: CREATININE,URINE RANDOM 182.55 mg/dL (63-166); SODIUM,URINE 25 mmol/L
[2017-09-06 18:31] LABS: AMORPHOUS SEDIMENT,URINE MANY (FEW); BACTERIA,URINE FEW /HPF
[2017-09-06] MEDS: ATORVASTATIN 20 MG TAB PO SCH (21:59)
[2017-09-06] MEDS: LATANOPROST(OPTH) 2.5 ML BTL OP SCH (21:59)
[2017-09-06] MEDS: ALPRAZOLAM 1 MG TAB PO SCH (22:00)
[2017-09-07] VITALS (41 sets, daily range): BP systolic 122–168; BP diastolic 65–111
[2017-09-07] MEDS: AZITHROMYCIN 500MG/SOD CHL 0.9% 250ML BAG IV SCH (02:03)
[2017-09-07] MEDS: ALBUTEROL SULF 0.083% NEB SOLN 3 ML NEB NEB SCH ×5 (02:30→19:00)
[2017-09-07] MEDS: IPRATROPIUM BROMIDE 0.02% 2.5 ML NEB NEB SCH ×4 (02:30→19:00)
[2017-09-07] MEDS: LINEZOLID 600 MG/D5W 300ML 300 ML IV SCH ×2 (03:14→15:22)
[2017-09-07 05:40] LABS: BASOPHILS % 0.2 % (0.0-1.0); EOSINOPHILS # (AUTO) 0.1 (0.0-0.4); EOSINOPHILS % 0.5 % (0.0-6.0); HEMATOCRIT 27.2 % (38.2-49.6); HEMOGLOBIN 8.9 g/dL (14.0-18.0); LYMPHOCYTES # (AUTO) 0.8 (1.0-3.2); LYMPHOCYTES % 3.5 % (18.0-39.1); MEAN CORPUSCULAR HGB CONC 32.7 g/dL (31-35); MEAN CORPUSCULAR VOLUME 100.7 fL (81-99); MONOCYTES # (AUTO) 2.3 (0.2-0.8); MONOCYTES % 9.9 % (4.4-11.3); NEUTROPHILS # (AUTO) 19.8 (2.1-6.9); NEUTROPHILS % 84.9 % (38.7-80.0); PLATELET COUNT 196 x10e3/uL (140-360); RED CELL DISTRIBUTION WIDTH 15.2 % (11.7-14.4)
[2017-09-07 06:06] LABS: ALBUMIN 1.9 g/dL (3.5-5.0); ALBUMIN/GLOBULIN RATIO 0.4 (0.8-2.0); CALCIUM 8.7 mg/dL (8.4-10.2); CREATININE, SERUM 6.62 mg/dL (0.72-1.25)
[2017-09-07 06:33] LABS: MAGNESIUM 1.7 MG/DL (1.3-2.1); PHOSPHORUS 5.5 MG/DL (2.3-4.7)
[2017-09-07] MEDS: SODIUM CHLORIDE 0.9% 1000ML 1,000 ML IV SCH (06:50)
[2017-09-07] MEDS: INSULIN REGULAR, HUMAN 100 UNIT/1 ML 3ML VIAL SQ SCH ×4 (07:30→20:11)
[2017-09-07] MEDS: ACYCLOVIR 200 MG CAP PO SCH (09:00)
[2017-09-07] MEDS: TRIAMCINOLONE ACET 0.1% CREAM 15 GM TUBE TOP SCH ×2 (09:00→17:00)
[2017-09-07] MEDS: CEFEPIME HCL 1 GM VIAL IV SCH (09:31)
[2017-09-07] MEDS: HYDRALAZINE HCL 25 MG TAB PO SCH ×2 (09:31→17:43)
[2017-09-07] MEDS: ASPIRIN 81 MG CHEW TAB PO SCH (09:31)
[2017-09-07] MEDS: NIFEDIPINE CR 30 MG TAB PO SCH (09:31)
[2017-09-07] MEDS: TAMSULOSIN HCL 0.4 MG CAP PO SCH (09:31)
[2017-09-07] MEDS ORDERED: BUMETANIDE 10 MG in SODIUM CHLORIDE 0.9% 100 ML 60 ML IV SCH (10:00)
[2017-09-07] MEDS: ACETAMINOPHEN 325 MG TAB PO PRN (10:00)
[2017-09-07] MEDS ORDERED: BUMETANIDE INJ 0.25 MG/ML 10 ML VIAL ONE (10:04)
[2017-09-07 10:26] LABS: BAND NEUTROPHILS % (MANUAL) 13 %; LYMPHOCYTES % (MANUAL) 8 % (19-48); MONOCYTES % (MANUAL) 12 % (3.4-9.0); NEUTROPHILS % (MANUAL) 67 % (40-74)
[2017-09-07 10:27] LABS: PLATELET ESTIMATE ADEQUATE; PLATELET MORPHOLOGY COMMENT NORMAL; RBC MORPHOLOGY COMMENT NORMAL
--- NOTE | 2017-09-07 10:33 | Diagnostic Imaging Report ---
EXAMINATION: CHEST SINGLE (PORTABLE) COMPARISON: Chest x-ray 09/04/2017 INDICATION: Pneumonia DISCUSSION: Frontal view of the chest obtained at 0957 hours. HEART AND MEDIASTINUM: Stable cardiomegaly LINES: None. LUNGS/PLEURA: Increasing left pleural effusion and airspace opacities. Right lung demonstrates basilar atelectasis. Small right pleural effusion cannot be excluded. BONES AND SOFT TISSUES: Mild degenerative changes of the right shoulder. The soft tissues are normal. IMPRESSION: Worsening airspace opacities in the left lung suggestive of pneumonia or atelectasis and pleural effusion. Signed by: Dr. Felix Cash MD on 09/07/2017 10:29 AM
[2017-09-07] MEDS ORDERED: BUMETANIDE 1 MG TAB PO ONE (11:00)
[2017-09-07] MEDS ORDERED: BUMETANIDE INJ 0.25MG/ML 4ML VIAL IV ONE (11:00)
[2017-09-07] MEDS ORDERED: FUROSEMIDE INJ 10 MG/ML 4 ML VIAL IV NR (14:30)
[2017-09-07 16:15] LABS: ABG HCO3 17 mmol/L (23-28); ABG PCO2 28 mmHg (41-51); ABG PH 7.39 (7.31-7.41); ABG PO2 73 mmHg (80-105)
[2017-09-07] MEDS ORDERED: PREDNISONE 20 MG TAB PO NR (17:00)
[2017-09-07] MEDS ORDERED: HEPARIN SOD (PORCINE) 5,000 UNIT/ML VIAL SC ONE (17:00)
[2017-09-07] MEDS: LATANOPROST(OPTH) 2.5 ML BTL OP SCH (20:46)
[2017-09-07] MEDS: ATORVASTATIN 20 MG TAB PO SCH (20:46)
[2017-09-07] MEDS: ALPRAZOLAM 1 MG TAB PO SCH (20:46)
[2017-09-08] VITALS (42 sets, daily range): BP systolic 112–168; BP diastolic 63–92
[2017-09-08] MEDS: AZITHROMYCIN 500MG/SOD CHL 0.9% 250ML BAG IV SCH (02:00)
[2017-09-08] MEDS: LINEZOLID 600 MG/D5W 300ML 300 ML IV SCH ×2 (03:12→17:35)
[2017-09-08] MEDS: ALBUTEROL SULF 0.083% NEB SOLN 3 ML NEB NEB SCH ×6 (03:30→19:15)
[2017-09-08 06:16] LABS: BASOPHILS % 0.1 % (0.0-1.0); HEMATOCRIT 24.7 % (38.2-49.6); HEMOGLOBIN 8.3 g/dL (14.0-18.0); LYMPHOCYTES # (AUTO) 0.4 (1.0-3.2); LYMPHOCYTES % 1.7 % (18.0-39.1); MEAN CORPUSCULAR HEMOGLOBIN 32.7 pg (28-32); MEAN CORPUSCULAR HGB CONC 33.6 g/dL (31-35); MEAN CORPUSCULAR VOLUME 97.2 fL (81-99); MONOCYTES # (AUTO) 1.3 (0.2-0.8); MONOCYTES % 6.6 % (4.4-11.3); NEUTROPHILS # (AUTO) 18.1 (2.1-6.9); NEUTROPHILS % 89.4 % (38.7-80.0); PLATELET COUNT 234 x10e3/uL (140-360); RED BLOOD COUNT 2.54 x10e6/uL (4.3-5.7); RED CELL DISTRIBUTION WIDTH 15.3 % (11.7-14.4)
[2017-09-08 06:49] LABS: ALBUMIN 1.7 g/dL (3.5-5.0); ALBUMIN/GLOBULIN RATIO 0.4 (0.8-2.0); ANION GAP 18.8 mmol/L (8-16); CALCIUM 8.5 mg/dL (8.4-10.2); CREATININE, SERUM 7.29 mg/dL (0.72-1.25); POTASSIUM 4.8 mmol/L (3.5-5.1)
--- NOTE | 2017-09-08 07:01 | Diagnostic Imaging Report ---
EXAMINATION: CHEST SINGLE (PORTABLE) INDICATION: Pneumonia. COMPARISON: 09/07/2017 FINDINGS: TUBES and LINES: None. LUNGS: Lungs are not well inflated. Left lower lobe airspace opacity in the retrocardiac space. There is perihilar interstitial opacities, consistent with interstitial edema. PLEURA: Suspected left pleural effusion. HEART AND MEDIASTINUM: Cardiac size is mildly enlarged. There are atherosclerotic calcifications within the aorta. BONES AND SOFT TISSUES: No acute osseous lesion. Soft tissues are unremarkable. UPPER ABDOMEN: No free air under the diaphragm. IMPRESSION: 1. Stable left lower lobe airspace opacity consistent with pneumonia 2. There is mild interlobular septi thickening compatible with fluid overload. 3. Left pleural effusion is suspected. Signed by: Dr. King Duran M.D. on 09/08/2017 6:58 AM
[2017-09-08] MEDS: IPRATROPIUM BROMIDE 0.02% 2.5 ML NEB NEB SCH ×4 (07:43→19:15)
[2017-09-08] MEDS: INSULIN REGULAR, HUMAN 100 UNIT/1 ML 3ML VIAL SQ SCH ×4 (08:22→22:53)
[2017-09-08 08:24] LABS: BAND NEUTROPHILS % (MANUAL) 7 %; MONOCYTES % (MANUAL) 10 % (3.4-9.0); MYELOCYTES % (MANUAL) 2 % (0-0); NEUTROPHILS % (MANUAL) 81 % (40-74)
[2017-09-08 08:26] LABS: ANISOCYTOSIS SLIGHT; HYPOCHROMASIA SLIGHT; PLATELET ESTIMATE ADEQUATE; RBC MORPHOLOGY COMMENT NORMAL
[2017-09-08 08:27] LABS: PLATELET MORPHOLOGY COMMENT NORMAL
[2017-09-08] MEDS ORDERED: PREDNISONE 10 MG TAB PO NR (08:45)
[2017-09-08] MEDS: TAMSULOSIN HCL 0.4 MG CAP PO SCH (09:10)
[2017-09-08] MEDS: HYDRALAZINE HCL 25 MG TAB PO SCH ×2 (09:10→17:36)
[2017-09-08] MEDS: ASPIRIN 81 MG CHEW TAB PO SCH (09:10)
[2017-09-08] MEDS: CEFEPIME HCL 1 GM VIAL IV SCH (09:10)
[2017-09-08] MEDS: ACYCLOVIR 200 MG CAP PO SCH (09:11)
[2017-09-08] MEDS: NIFEDIPINE CR 30 MG TAB PO SCH (09:11)
[2017-09-08] MEDS: TRIAMCINOLONE ACET 0.1% CREAM 15 GM TUBE TOP SCH ×2 (12:56→22:52)
[2017-09-08] MEDS ORDERED: LIDOCAINE HCL 1% LOCAL INJ 20 ML VIAL ONE (14:27)
--- NOTE | 2017-09-08 15:46 | Diagnostic Imaging Report ---
PROCEDURE:US CHEST (INCL MEDIASTINUM) COMPARISON:Same day chest Xray INDICATIONS:LEFT PLEURAL EFFUSION FINDINGS: See conclusion. CONCLUSION: Trace right and small left pleural effusions. Dictated by: Keny Roberts M.D. on 09/08/2017 at 15:48 Electronically approved by: Keny Roberts M.D. on 09/08/2017 at 15:48
[2017-09-08] MEDS ORDERED: SODIUM CHLORIDE 0.9% 1000ML 1,000 ML ONE (18:33)
[2017-09-08] MEDS ORDERED: HEPARIN SOD (PORCINE) 1000 UNIT/ML SDV ONE (18:34)
[2017-09-08] MEDS: ALPRAZOLAM 1 MG TAB PO SCH (22:53)
[2017-09-08] MEDS: ATORVASTATIN 20 MG TAB PO SCH (22:53)
[2017-09-08] MEDS: LATANOPROST(OPTH) 2.5 ML BTL OP SCH (22:53)
[2017-09-09] VITALS (69 sets, daily range): BP systolic 125–173; BP diastolic 63–107
[2017-09-09] MEDS: AZITHROMYCIN 500MG/SOD CHL 0.9% 250ML BAG IV SCH (02:19)
[2017-09-09] MEDS: ALBUTEROL SULF 0.083% NEB SOLN 3 ML NEB NEB SCH ×6 (03:00→19:00)
[2017-09-09] MEDS: LINEZOLID 600 MG/D5W 300ML 300 ML IV SCH ×2 (03:46→17:32)
[2017-09-09 06:06] LABS: BASOPHILS % 0.2 % (0.0-1.0); EOSINOPHILS # (AUTO) 0.1 (0.0-0.4); EOSINOPHILS % 0.8 % (0.0-6.0); HEMOGLOBIN 7.6 g/dL (14.0-18.0); LYMPHOCYTES # (AUTO) 0.7 (1.0-3.2); LYMPHOCYTES % 5.8 % (18.0-39.1); MEAN CORPUSCULAR HEMOGLOBIN 32.2 pg (28-32); MEAN CORPUSCULAR HGB CONC 34.2 g/dL (31-35); MEAN CORPUSCULAR VOLUME 94.1 fL (81-99); MONOCYTES # (AUTO) 1.6 (0.2-0.8); MONOCYTES % 12.8 % (4.4-11.3); NEUTROPHILS # (AUTO) 9.9 (2.1-6.9); NEUTROPHILS % 77.2 % (38.7-80.0); PLATELET COUNT 238 x10e3/uL (140-360); RED BLOOD COUNT 2.36 x10e6/uL (4.3-5.7); RED CELL DISTRIBUTION WIDTH 14.7 % (11.7-14.4)
[2017-09-09 06:15] LABS: HEMATOCRIT 22.2 % (38.2-49.6)
[2017-09-09 06:40] LABS: ANION GAP 17.9 mmol/L (8-16); CREATININE, SERUM 5.66 mg/dL (0.72-1.25); POTASSIUM 3.9 mmol/L (3.5-5.1)
--- NOTE | 2017-09-09 07:03 | Diagnostic Imaging Report ---
EXAM: CHEST SINGLE (PORTABLE), AP 1 view INDICATION: Pneumonia COMPARISON: AP view of the chest September 08, 2017 FINDINGS: LINES/TUBES: Interval placement of right internal jugular vein central line. LUNGS: Persistent bilateral airspace opacities, predominantly throughout the left lung. PLEURA: Indeterminate for effusion on the left. HEART AND MEDIASTINUM: Stable appearance. BONES AND SOFT TISSUES: No acute findings. IMPRESSION: Findings suspicious for edema with superimposed pneumonia on the left. Signed by: Dr. Valeria Sanabria M.D. on 09/09/2017 6:59 AM
[2017-09-09] MEDS: IPRATROPIUM BROMIDE 0.02% 2.5 ML NEB NEB SCH ×4 (07:15→19:00)
[2017-09-09] MEDS: INSULIN REGULAR, HUMAN 100 UNIT/1 ML 3ML VIAL SQ SCH ×4 (07:43→22:04)
[2017-09-09 07:46] LABS: HYPOCHROMASIA SLIGHT; LYMPHOCYTES % (MANUAL) 5 % (19-48); MONOCYTES % (MANUAL) 6 % (3.4-9.0); NEUTROPHILS % (MANUAL) 89 % (40-74)
[2017-09-09 07:47] LABS: ANISOCYTOSIS SLIGHT; PLATELET ESTIMATE ADEQUATE; PLATELET MORPHOLOGY COMMENT NORMAL; POIKILOCYTOSIS SLIGHT; RBC MORPHOLOGY COMMENT NORMAL
[2017-09-09] MEDS: ASPIRIN 81 MG CHEW TAB PO SCH (08:36)
[2017-09-09] MEDS: TAMSULOSIN HCL 0.4 MG CAP PO SCH (08:37)
[2017-09-09] MEDS: CEFEPIME HCL 1 GM VIAL IV SCH (08:41)
[2017-09-09] MEDS: NIFEDIPINE CR 30 MG TAB PO SCH (08:41)
[2017-09-09] MEDS: HYDRALAZINE HCL 25 MG TAB PO SCH ×2 (08:41→17:32)
[2017-09-09] MEDS ORDERED: SODIUM CHLORIDE 0.9% 250ML 250 ML IV ONE (13:45)
[2017-09-09] MEDS ORDERED: HEPARIN SOD (PORCINE) 1000 UNIT/ML SDV ONE (16:29)
[2017-09-09] MEDS: HYDRALAZINE HCL 20 MG/ML VIAL IV PRN (19:50)
[2017-09-09] MEDS: TRIAMCINOLONE ACET 0.1% CREAM 15 GM TUBE TOP SCH (21:30)
[2017-09-09] MEDS: ALPRAZOLAM 1 MG TAB PO SCH (21:31)
[2017-09-09] MEDS: ATORVASTATIN 20 MG TAB PO SCH (21:31)
[2017-09-09] MEDS: LATANOPROST(OPTH) 2.5 ML BTL OP SCH (21:31)
[2017-09-10] VITALS (56 sets, daily range): BP systolic 135–182; BP diastolic 63–89
[2017-09-10] MEDS: HYDRALAZINE HCL 20 MG/ML VIAL IV PRN ×2 (00:10→19:03)
[2017-09-10] MEDS: AZITHROMYCIN 500MG/SOD CHL 0.9% 250ML BAG IV SCH (01:47)
[2017-09-10] MEDS: ALBUTEROL SULF 0.083% NEB SOLN 3 ML NEB NEB SCH ×6 (03:00→18:52)
[2017-09-10] MEDS: LINEZOLID 600 MG/D5W 300ML 300 ML IV SCH ×2 (03:01→15:00)
[2017-09-10 04:44] LABS: BASOPHILS % 0.1 % (0.0-1.0); EOSINOPHILS # (AUTO) 0.2 (0.0-0.4); EOSINOPHILS % 1.6 % (0.0-6.0); HEMATOCRIT 27.4 % (38.2-49.6); HEMOGLOBIN 9.5 g/dL (14.0-18.0); LYMPHOCYTES # (AUTO) 0.9 (1.0-3.2); LYMPHOCYTES % 6.5 % (18.0-39.1); MEAN CORPUSCULAR HEMOGLOBIN 31.3 pg (28-32); MEAN CORPUSCULAR HGB CONC 34.7 g/dL (31-35); MEAN CORPUSCULAR VOLUME 90.1 fL (81-99); MONOCYTES # (AUTO) 2.2 (0.2-0.8); MONOCYTES % 16.1 % (4.4-11.3); NEUTROPHILS # (AUTO) 9.7 (2.1-6.9); NEUTROPHILS % 70.4 % (38.7-80.0); PLATELET COUNT 193 x10e3/uL (140-360); RED BLOOD COUNT 3.04 x10e6/uL (4.3-5.7); RED CELL DISTRIBUTION WIDTH 19.9 % (11.7-14.4)
[2017-09-10 05:08] LABS: ALBUMIN 1.7 g/dL (3.5-5.0); ALBUMIN/GLOBULIN RATIO 0.4 (0.8-2.0); ANION GAP 16.6 mmol/L (8-16); CREATININE, SERUM 4.81 mg/dL (0.72-1.25); POTASSIUM 3.6 mmol/L (3.5-5.1)
[2017-09-10 05:28] LABS: EOSINOPHILS % (MANUAL) 3 % (0-7); LYMPHOCYTES % (MANUAL) 8 % (19-48); METAMYELOCYTES % (MANUAL) 2 % (0-0); MONOCYTES % (MANUAL) 15 % (3.4-9.0); MYELOCYTES % (MANUAL) 1 % (0-0); NEUTROPHILS % (MANUAL) 71 % (40-74); NUCLEATED RED BLOOD CELLS 3
[2017-09-10 05:29] LABS: ANISOCYTOSIS MODERATE
[2017-09-10 05:30] LABS: POIKILOCYTOSIS SLIGHT
[2017-09-10 05:31] LABS: PLATELET ESTIMATE ADEQUATE; PLATELET MORPHOLOGY COMMENT FEW LARGE
[2017-09-10 05:32] LABS: RBC MORPHOLOGY COMMENT NORMAL
--- NOTE | 2017-09-10 06:34 | Diagnostic Imaging Report ---
EXAM: CHEST SINGLE (PORTABLE), AP 1 view INDICATION: Pneumonia COMPARISON: AP view of the chest September 09, 2017 FINDINGS: LINES/TUBES: Stable position of right internal jugular vein temporary hemodialysis catheter. LUNGS: Stable findings of pulmonary edema and possible superimposed pneumonia. PLEURA: Suspected left pleural effusion. HEART AND MEDIASTINUM: Stable appearance. BONES AND SOFT TISSUES: No acute findings. IMPRESSION: No interval change. Signed by: Dr. Valeria Sanabria M.D. on 09/10/2017 6:31 AM
--- NOTE | 2017-09-10 07:13 | Diagnostic Imaging Report ---
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 Montaño Pre-operative diagnosis: Acute kidney injury Post-operative diagnosis: Acute kidney injury Conscious Sedation: None Additional Medications: Lidocaine 1% for local anesthesia Fluoroscopy time: 0 Dose-area Product: 0 mGycm2. Frontal Air Kerma: 0 Contrast used: 0 Estimated blood loss: Minimal Specimens: None Implants: 13 Tristanian, 15 cm triple-lumen hi flow central venous catheter DISCUSSION: Informed consent was obtained from the next of kin and documented in the medical record. The patient was placed in the supine position. Preliminary sonographic evaluation of the right internal jugular vein confirmed patency evidenced by compressibility. The right cervical region was then prepped and draped in standard sterile fashion. 1% lidocaine was infiltrated into the skin and subcutaneous tissue for local anesthesia. Then under continuous sonographic guidance an 18-gauge singlewall needle was used to access the right internal jugular vein. A permanent sonographic image was stored in the medical record. A 0.0 3 5-in. wire was advanced centrally to a depth of 25 cm with continuous cardiac rhythm monitoring. The needle was removed over the wire and the tract was dilated. Then, a 13 Tristanian, 15 cm triple-lumen hi flow central venous catheter was advanced over the wire to a depth of 15 cm. The wire was removed. Each lumen showed adequate bidirectional flow and was flushed with sterile saline. The catheter was secured to the skin with monofilament nylon suture and a sterile dressing was applied. Chest radiograph performed immediately after completion of the procedure confirmed position of the line with the catheter tip at the superior cavoatrial junction. The patient tolerated the procedure well without immediate complication. FINDINGS: Patent right internal jugular vein IMPRESSION: Successful placement of a 13 Tristanian, 15 cm triple-lumen hi flow central venous catheter by a right internal jugular approach. Signed by: Dr. Messi Montaño M.D. on 09/10/2017 7:10 AM
[2017-09-10] MEDS: INSULIN REGULAR, HUMAN 100 UNIT/1 ML 3ML VIAL SQ SCH ×4 (07:30→21:09)
[2017-09-10] MEDS: IPRATROPIUM BROMIDE 0.02% 2.5 ML NEB NEB SCH ×4 (07:40→18:52)
[2017-09-10] MEDS: ASPIRIN 81 MG CHEW TAB PO SCH (09:00)
[2017-09-10] MEDS: HYDRALAZINE HCL 25 MG TAB PO SCH ×3 (09:00→20:05)
[2017-09-10] MEDS: CEFEPIME HCL 1 GM VIAL IV SCH (09:00)
[2017-09-10] MEDS: TAMSULOSIN HCL 0.4 MG CAP PO SCH (09:00)
[2017-09-10] MEDS: NIFEDIPINE CR 30 MG TAB PO SCH ×2 (09:00→20:07)
[2017-09-10] MEDS: TRIAMCINOLONE ACET 0.1% CREAM 15 GM TUBE TOP SCH ×2 (09:05→17:00)
[2017-09-10] MEDS ORDERED: SODIUM CHLORIDE 0.9% 1000ML 2,000 ML IV PRN (17:45)
[2017-09-10] MEDS ORDERED: ALBUMIN 25% 12.5GM 0.25 GM/ML BTL IV PRN (17:45)
[2017-09-10] MEDS ORDERED: HEPARIN SOD (PORCINE) 1000 UNIT/ML SDV IV PRN (17:45)
[2017-09-10] MEDS ORDERED: SODIUM CHLORIDE 0.9% 250ML 500 ML IV PRN (17:45)
[2017-09-10] MEDS ORDERED: MANNITOL 25% 12.5GM/50 ML VIAL IV PRN (17:45)
[2017-09-10] MEDS: ATORVASTATIN 20 MG TAB PO SCH (20:06)
[2017-09-10] MEDS ORDERED: ALPRAZOLAM 0.5 MG TAB PO SCH (21:00)
[2017-09-10] MEDS: LATANOPROST(OPTH) 2.5 ML BTL OP SCH (21:09)
[2017-09-11 01:01] VITALS: BP 170/74
[2017-09-11] MEDS: HYDRALAZINE HCL 20 MG/ML VIAL IV PRN (01:06)
[2017-09-11] MEDS ORDERED: SODIUM CHLORIDE 0.9% 250ML 250 ML ONE (02:13)
[2017-09-11] MEDS: AZITHROMYCIN 500MG/SOD CHL 0.9% 250ML BAG IV SCH (02:32)
[2017-09-11] MEDS: ALBUTEROL SULF 0.083% NEB SOLN 3 ML NEB NEB SCH ×5 (02:50→19:53)
[2017-09-11] MEDS: LINEZOLID 600 MG/D5W 300ML 300 ML IV SCH ×2 (04:01→15:23)
[2017-09-11 05:44] VITALS: BP 170/75
[2017-09-11 06:28] LABS: BASOPHILS # (AUTO) 0.1 (0.0-0.1); BASOPHILS % 0.3 % (0.0-1.0); EOSINOPHILS # (AUTO) 0.2 (0.0-0.4); EOSINOPHILS % 0.8 % (0.0-6.0); HEMATOCRIT 27.6 % (38.2-49.6); HEMOGLOBIN 9.3 g/dL (14.0-18.0); LYMPHOCYTES # (AUTO) 1.2 (1.0-3.2); LYMPHOCYTES % 6.6 % (18.0-39.1); MEAN CORPUSCULAR HEMOGLOBIN 30.8 pg (28-32); MEAN CORPUSCULAR HGB CONC 33.7 g/dL (31-35); MEAN CORPUSCULAR VOLUME 91.4 fL (81-99); MONOCYTES # (AUTO) 2.5 (0.2-0.8); MONOCYTES % 13.9 % (4.4-11.3); NEUTROPHILS # (AUTO) 13.2 (2.1-6.9); NEUTROPHILS % 73.4 % (38.7-80.0); PLATELET COUNT 190 x10e3/uL (140-360); RED BLOOD COUNT 3.02 x10e6/uL (4.3-5.7); RED CELL DISTRIBUTION WIDTH 19.7 % (11.7-14.4)
[2017-09-11 06:50] LABS: ALBUMIN 1.8 g/dL (3.5-5.0); ALBUMIN/GLOBULIN RATIO 0.4 (0.8-2.0); CALCIUM 8.5 mg/dL (8.4-10.2); CREATININE, SERUM 3.63 mg/dL (0.72-1.25); MAGNESIUM 1.9 MG/DL (1.3-2.1); PHOSPHORUS 4.1 MG/DL (2.3-4.7)
[2017-09-11 07:27] LABS: BAND NEUTROPHILS % (MANUAL) 1 %; EOSINOPHILS % (MANUAL) 2 % (0-7); LYMPHOCYTES % (MANUAL) 3 % (19-48); MONOCYTES % (MANUAL) 14 % (3.4-9.0); NEUTROPHILS % (MANUAL) 80 % (40-74); NUCLEATED RED BLOOD CELLS 1
[2017-09-11 07:28] LABS: ANISOCYTOSIS SLIGHT; HYPOCHROMASIA SLIG; PLATELET ESTIMATE ADEQUATE; POIKILOCYTOSIS SLIGHT
[2017-09-11 07:29] LABS: PLATELET MORPHOLOGY COMMENT NORMAL; RBC MORPHOLOGY COMMENT NORMAL
[2017-09-11] MEDS: INSULIN REGULAR, HUMAN 100 UNIT/1 ML 3ML VIAL SQ SCH ×4 (07:30→20:50)
[2017-09-11] MEDS: TAMSULOSIN HCL 0.4 MG CAP PO SCH (09:04)
[2017-09-11] MEDS: NIFEDIPINE CR 30 MG TAB PO SCH ×2 (09:04→20:53)
[2017-09-11] MEDS: HYDRALAZINE HCL 25 MG TAB PO SCH ×3 (09:04→20:50)
[2017-09-11] MEDS: ASPIRIN 81 MG CHEW TAB PO SCH (09:04)
[2017-09-11] MEDS: TRIAMCINOLONE ACET 0.1% CREAM 15 GM TUBE TOP SCH ×2 (09:04→16:54)
[2017-09-11] MEDS: CEFEPIME HCL 1 GM VIAL IV SCH (09:04)
[2017-09-11 10:09] VITALS: BP 161/70
--- NOTE | 2017-09-11 10:59 | Diagnostic Imaging Report ---
PROCEDURE: Frontal and lateral views of the chest. COMPARISON: None. INDICATIONS: PNEUMONIA FINDINGS: Lines/tubes: Right IJ temporary hemodialysis catheter. Lungs: Bilateral lower lobe air space opacities. Improvement on the left. There is moderate pulmonary edema. Pleura: Small bilateral pleural effusions. Heart and mediastinum: The heart and the mediastinum are normal. Bones: No acute bony abnormality. IMPRESSION: Bilateral lower lobe air space opacities with moderate pulmonary edema and small pleural effusions. Samuel Stewart D.O. Dictated by: Samuel Stewart D.O. on 09/11/2017 at 11:02 Electronically approved by: Samuel Stewart D.O. on 09/11/2017 at 11:02
[2017-09-11] MEDS: IPRATROPIUM BROMIDE 0.02% 2.5 ML NEB NEB SCH ×4 (12:30→19:53)
[2017-09-11] MEDS: METRONIDAZOLE 250 MG TAB PO SCH ×2 (13:45→22:42)
[2017-09-11] MEDS ORDERED: CHOLESTYRAMINE 4 GM PACKET PO PRN (16:45)
[2017-09-11] MEDS ORDERED: SODIUM CHLORIDE 0.9% IV SCH ×2 (18:45)
[2017-09-11] MEDS ORDERED: BUMETANIDE IV SCH ×2 (18:45)
[2017-09-11] MEDS ORDERED: BUMETANIDE 10 MG in SODIUM CHLORIDE 0.9% 100 ML 60 ML IV SCH (19:00)
[2017-09-11] MEDS ORDERED: BUMETANIDE INJ 0.25MG/ML 4ML VIAL IV ONE (19:15)
[2017-09-11 20:00] VITALS: BP 187/81
[2017-09-11] MEDS: LATANOPROST(OPTH) 2.5 ML BTL OP SCH (20:49)
[2017-09-11] MEDS: ALPRAZOLAM 0.5 MG TAB PO SCH (20:50)
[2017-09-11] MEDS: ATORVASTATIN 20 MG TAB PO SCH (20:50)
[2017-09-11] MEDS: BUMETANIDE 10 MG in SODIUM CHLORIDE 0.9% 100 ML 60 ML IV SCH (21:35)
[2017-09-12] MEDS: IPRATROPIUM BROMIDE 0.02% 2.5 ML NEB NEB SCH ×4 (00:20→19:54)
[2017-09-12] MEDS: ALBUTEROL SULF 0.083% NEB SOLN 3 ML NEB NEB SCH ×6 (00:20→23:30)
[2017-09-12] MEDS: LINEZOLID 600 MG/D5W 300ML 300 ML IV SCH ×2 (02:47→14:50)
[2017-09-12 04:00] VITALS: BP 197/81
[2017-09-12] MEDS: HYDRALAZINE HCL 20 MG/ML VIAL IV PRN ×2 (04:33→15:37)
[2017-09-12] MEDS: METRONIDAZOLE 250 MG TAB PO SCH ×3 (05:52→21:39)
[2017-09-12] MEDS: BUMETANIDE 10 MG in SODIUM CHLORIDE 0.9% 100 ML 60 ML IV SCH ×2 (06:00→16:59)
[2017-09-12 06:34] LABS: BASOPHILS # (AUTO) 0.1 (0.0-0.1); BASOPHILS % 0.4 % (0.0-1.0); EOSINOPHILS # (AUTO) 0.2 (0.0-0.4); HEMOGLOBIN 9.7 g/dL (14.0-18.0); LYMPHOCYTES # (AUTO) 1.3 (1.0-3.2); LYMPHOCYTES % 8.2 % (18.0-39.1); MEAN CORPUSCULAR HEMOGLOBIN 30.7 pg (28-32); MEAN CORPUSCULAR HGB CONC 32.3 g/dL (31-35); MEAN CORPUSCULAR VOLUME 94.9 fL (81-99); MONOCYTES # (AUTO) 2.1 (0.2-0.8); MONOCYTES % 13.2 % (4.4-11.3); NEUTROPHILS # (AUTO) 11.4 (2.1-6.9); NEUTROPHILS % 73.1 % (38.7-80.0); PLATELET COUNT 180 x10e3/uL (140-360); RED BLOOD COUNT 3.16 x10e6/uL (4.3-5.7); RED CELL DISTRIBUTION WIDTH 19.4 % (11.7-14.4)
[2017-09-12 06:58] LABS: ALBUMIN 2.1 g/dL (3.5-5.0); ALBUMIN/GLOBULIN RATIO 0.5 (0.8-2.0); ANION GAP 18.7 mmol/L (8-16); CREATININE, SERUM 4.74 mg/dL (0.72-1.25); POTASSIUM 3.7 mmol/L (3.5-5.1)
[2017-09-12] MEDS: HYDRALAZINE HCL 25 MG TAB PO SCH ×4 (07:51→20:16)
[2017-09-12] MEDS: NIFEDIPINE CR 30 MG TAB PO SCH ×2 (07:51→20:16)
[2017-09-12] MEDS: INSULIN REGULAR, HUMAN 100 UNIT/1 ML 3ML VIAL SQ SCH ×4 (07:53→21:00)
[2017-09-12 08:00] VITALS: BP 197/96
[2017-09-12 08:08] LABS: ANISOCYTOSIS SLIGHT; BAND NEUTROPHILS % (MANUAL) 5 %; HYPOCHROMASIA SLIGHT; LYMPHOCYTES % (MANUAL) 4 % (19-48); METAMYELOCYTES % (MANUAL) 1 % (0-0); MONOCYTES % (MANUAL) 8 % (3.4-9.0); MYELOCYTES % (MANUAL) 2 % (0-0); NEUTROPHILS % (MANUAL) 80 % (40-74); RBC MORPHOLOGY COMMENT NORMAL; TEAR DROP CELLS FEW
[2017-09-12 08:11] LABS: PLATELET ESTIMATE ADEQUATE; PLATELET MORPHOLOGY COMMENT NORMAL
[2017-09-12] MEDS: TRIAMCINOLONE ACET 0.1% CREAM 15 GM TUBE TOP SCH ×2 (09:00→16:59)
[2017-09-12] MEDS: ASPIRIN 81 MG CHEW TAB PO SCH (09:15)
[2017-09-12] MEDS: CEFEPIME HCL 1 GM VIAL IV SCH (09:15)
[2017-09-12] MEDS: TAMSULOSIN HCL 0.4 MG CAP PO SCH (09:15)
[2017-09-12] MEDS ORDERED: MEGACE 400MG/ 10ML CUP PO SCH (11:00)
[2017-09-12 12:00] VITALS: BP 157/79
[2017-09-12 16:00] VITALS: BP 202/98
[2017-09-12 20:09] VITALS: BP 180/87
[2017-09-12] MEDS: ATORVASTATIN 20 MG TAB PO SCH (20:16)
[2017-09-12] MEDS: ALPRAZOLAM 0.5 MG TAB PO SCH (20:17)
[2017-09-12] MEDS: LATANOPROST(OPTH) 2.5 ML BTL OP SCH (21:00)
[2017-09-13] VITALS (7 sets, daily range): BP systolic 161–189; BP diastolic 77–84
[2017-09-13] MEDS: BUMETANIDE 10 MG in SODIUM CHLORIDE 0.9% 100 ML 60 ML IV SCH ×3 (02:00→22:00)
[2017-09-13] MEDS: LINEZOLID 600 MG/D5W 300ML 300 ML IV SCH (03:00)
[2017-09-13] MEDS: ALBUTEROL SULF 0.083% NEB SOLN 3 ML NEB NEB SCH ×3 (03:02→11:02)
[2017-09-13] MEDS: IPRATROPIUM BROMIDE 0.02% 2.5 ML NEB NEB SCH ×4 (03:02→19:37)
[2017-09-13] MEDS: HYDRALAZINE HCL 20 MG/ML VIAL IV PRN (04:30)
[2017-09-13] MEDS: METRONIDAZOLE 250 MG TAB PO SCH ×3 (05:20→22:00)
[2017-09-13] MEDS: INSULIN REGULAR, HUMAN 100 UNIT/1 ML 3ML VIAL SQ SCH ×4 (08:30→20:23)
[2017-09-13] MEDS: CEFEPIME HCL 1 GM VIAL IV SCH (08:54)
[2017-09-13] MEDS: ASPIRIN 81 MG CHEW TAB PO SCH (08:55)
[2017-09-13] MEDS: TAMSULOSIN HCL 0.4 MG CAP PO SCH (08:55)
[2017-09-13] MEDS: NIFEDIPINE CR 30 MG TAB PO SCH ×2 (08:55→20:15)
[2017-09-13] MEDS: HYDRALAZINE HCL 25 MG TAB PO SCH ×3 (08:55→20:14)
[2017-09-13] MEDS: TRIAMCINOLONE ACET 0.1% CREAM 15 GM TUBE TOP SCH ×2 (09:00→16:03)
[2017-09-13] MEDS ORDERED: MEGACE 400MG/ 10ML CUP PO ONE (13:30)
--- NOTE | 2017-09-13 15:30 | Progress Note ---
DATE: September 13, 2017 Mr. Jenkins continues to be in the hospital. He looks better; but according to the , he is still not doing that good. He is still having some shortness of breath with exertion. Also, he is still having some hemoptysis. The patient is just weak in general. PHYSICAL EXAMINATION GENERAL: He is currently alert and oriented. He does not seem to be in acute distress. VITALS: There is no fever. The last time he had fever was on September 09, and it was 100.4. HEENT: Normocephalic. Not icteric. NECK: Supple. CHEST: A few rhonchi anteriorly. COR: S1 and S2. No S3, S4 or murmur. ABDOMEN: Soft. Bowel sounds are present. Obese. No tenderness. EXTREMITIES: No edema. The last chest x-ray was on September 11. At that time, it showed bilateral airspace opacities with small pleural effusion. IMPRESSION 1. Pneumonia. The patient has been on antibiotic since admission. Clinically, he is better, but there is still some infiltrate. I am going to obtain a CAT scan of his chest. We will discuss with pulmonary about this hemoptysis, if he may need bronchoscopy. 2. Chronic kidney disease. 3. Anemia. 4. Debilitated. 5. Will follow. Job#: [id number]
[2017-09-13] MEDS: CARVEDILOL 12.5 MG TAB PO SCH (16:47)
--- NOTE | 2017-09-13 18:14 | Diagnostic Imaging Report ---
EXAM: CT Chest WITHOUT contrast INDICATION: \S\r/o neoplasm COMPARISON: None TECHNIQUE: Chest was scanned utilizing a multidetector helical scanner from the lung apex through the level of the adrenal glands without administration of IV contrast. Absence of intravenous contrast decreases sensitivity for detection of lymphadenopathy and vascular pathology. Coronal and sagittal reformations were obtained. Routine protocol was performed. IV CONTRAST: None COMPLICATIONS: None RADIATION DOSE: Total DLP: 486.4 mGy*cm Estimated effective dose: (DLP x 0.014 x size factor) mSv CTDIvol has been reviewed. It is below the limits set by the Radiation Protocol Committee (RPC). FINDINGS: LINES/ TUBES: Right internal jugular hemodialysis catheter with tip in the superior vena cava. LUNGS AND AIRWAYS: Left lower lobe is nearly collapsed. Left upper lobe consolidation adjacent groundglass opacities. The lungs are unremarkable. Airways are normal. PLEURA: Moderate pleural effusions. HEART AND MEDIASTINUM: The thyroid gland is normal. No mediastinal, hilar or axillary lymphadenopathy. Calcified mediastinal lymph nodes likely related to prior granulomatous disease. Mildly enlarged right lower paratracheal lymph node with calcification which also may be related to granulomatous disease. The heart is normal in size.. Small pericardial effusion. Main pulmonary artery is enlarged measuring 3.7 cm diameter which can be seen with pulmonary hypertension. Coronary artery calcifications. UPPER ABDOMEN: Few surgical clips along a short segment of the greater curvature of the stomach. Adrenal gland thickening without definite discrete nodule. BONES: The visualized bony thorax is within normal limits for age. SOFT TISSUES: Unremarkable. IMPRESSION: Moderate pleural effusions with left lower lobe and upper lobe atelectasis and likely superimposed pneumonia. Recommend follow-up chest CT with contrast after resolution of acute findings to better evaluate for neoplasm as underlying pathology may be obscured. Signed by: DR. Chandu Vogel MD on 09/13/2017 6:10 PM
[2017-09-13] MEDS: ATORVASTATIN 20 MG TAB PO SCH (20:14)
[2017-09-13] MEDS: ALPRAZOLAM 0.5 MG TAB PO SCH (20:15)
[2017-09-13] MEDS: LATANOPROST(OPTH) 2.5 ML BTL OP SCH (20:22)
[2017-09-14] VITALS (7 sets, daily range): BP systolic 138–162; BP diastolic 64–77
[2017-09-14] MEDS: BUMETANIDE 10 MG in SODIUM CHLORIDE 0.9% 100 ML 60 ML IV SCH ×2 (01:27→12:53)
[2017-09-14] MEDS: METRONIDAZOLE 250 MG TAB PO SCH ×3 (05:44→22:00)
[2017-09-14 06:42] LABS: ALBUMIN 2.2 g/dL (3.5-5.0); ALBUMIN/GLOBULIN RATIO 0.6 (0.8-2.0); ANION GAP 15.1 mmol/L (8-16); CALCIUM 8.7 mg/dL (8.4-10.2); CREATININE, SERUM 3.92 mg/dL (0.72-1.25); POTASSIUM 3.1 mmol/L (3.5-5.1)
[2017-09-14] MEDS: IPRATROPIUM BROMIDE 0.02% 2.5 ML NEB NEB SCH ×3 (06:50→22:55)
[2017-09-14] MEDS: INSULIN REGULAR, HUMAN 100 UNIT/1 ML 3ML VIAL SQ SCH ×4 (07:30→20:31)
[2017-09-14] MEDS: CEFEPIME HCL 1 GM VIAL IV SCH (09:30)
[2017-09-14] MEDS: NIFEDIPINE CR 30 MG TAB PO SCH ×2 (09:33→20:09)
[2017-09-14] MEDS: ASPIRIN 81 MG CHEW TAB PO SCH (09:33)
[2017-09-14] MEDS: HYDRALAZINE HCL 25 MG TAB PO SCH ×3 (09:33→20:08)
[2017-09-14] MEDS: CARVEDILOL 12.5 MG TAB PO SCH ×2 (09:33→17:11)
[2017-09-14] MEDS: TAMSULOSIN HCL 0.4 MG CAP PO SCH (09:33)
[2017-09-14] MEDS: TRIAMCINOLONE ACET 0.1% CREAM 15 GM TUBE TOP SCH ×2 (09:34→17:11)
[2017-09-14] MEDS ORDERED: POTASSIUM CHLORIDE 20 MEQ TAB CR PO ONE (11:30)
[2017-09-14] MEDS ORDERED: MEGACE 400MG/ 10ML CUP PO ONE (13:00)
--- NOTE | 2017-09-14 13:51 | Progress Note ---
DATE: September 14, 2017 SUBJECTIVE: Mr. Jenkins continues to do the same. He is still having small amount of hemoptysis. No new complaints. LABORATORY DATA: Reviewed. His white count is 15.6, hemoglobin 9.7, and hematocrit 30. Sodium 137, potassium 3.1, and creatinine 3.92. REVIEW OF SYSTEMS: He has diarrhea, but this is old. His C. diff has been negative. PHYSICAL EXAMINATION GENERAL: Alert and comfortable, does not seem in acute distress. VITALS: Stable, currently afebrile. Temperature 98.4 and heart rate 89. HEENT: He does not appear icteric. NECK: Supple. CHEST: Few rhonchi. COR: S1 and S2. No murmur. ABDOMEN: Soft. IMPRESSION 1. Hemoptysis and pleural effusion. Discussed with the . We will aspirate and send for cell count, protein, and glucose. 2. Continue with antibiotic for now. He will probably need the bronchoscopy to rule out the pathology. We will follow. Job#: [id number] DAVID
[2017-09-14] MEDS: ISOSORBIDE DINITRATE 20 MG TAB PO SCH ×2 (16:59→20:08)
[2017-09-14] MEDS: ATORVASTATIN 20 MG TAB PO SCH (20:07)
[2017-09-14] MEDS: LATANOPROST(OPTH) 2.5 ML BTL OP SCH (20:07)
[2017-09-14] MEDS: ALPRAZOLAM 0.5 MG TAB PO SCH (20:07)
[2017-09-15] VITALS (7 sets, daily range): BP systolic 122–158; BP diastolic 58–67
[2017-09-15] MEDS: METRONIDAZOLE 250 MG TAB PO SCH ×2 (05:19→14:00)
[2017-09-15 06:24] LABS: CALCIUM 8.4 mg/dL (8.4-10.2); CREATININE, SERUM 4.04 mg/dL (0.72-1.25)
[2017-09-15] MEDS: IPRATROPIUM BROMIDE 0.02% 2.5 ML NEB NEB SCH ×3 (07:00→23:05)
[2017-09-15] MEDS: INSULIN REGULAR, HUMAN 100 UNIT/1 ML 3ML VIAL SQ SCH ×4 (07:30→20:35)
[2017-09-15] MEDS: CARVEDILOL 12.5 MG TAB PO SCH ×2 (08:00→17:00)
[2017-09-15] MEDS: HYDRALAZINE HCL 25 MG TAB PO SCH ×3 (09:00→20:34)
[2017-09-15] MEDS: NIFEDIPINE CR 30 MG TAB PO SCH ×2 (09:00→20:34)
[2017-09-15] MEDS: TRIAMCINOLONE ACET 0.1% CREAM 15 GM TUBE TOP SCH ×2 (09:00→17:00)
[2017-09-15] MEDS: ASPIRIN 81 MG CHEW TAB PO SCH (09:00)
[2017-09-15] MEDS: ISOSORBIDE DINITRATE 20 MG TAB PO SCH ×3 (09:00→20:34)
[2017-09-15] MEDS: CEFEPIME HCL 1 GM VIAL IV SCH (09:00)
[2017-09-15] MEDS: TAMSULOSIN HCL 0.4 MG CAP PO SCH (09:00)
[2017-09-15] MEDS ORDERED: POTASSIUM CHLORIDE 20MEQ/100ML 200 ML IV ONE (09:15)
[2017-09-15] MEDS: LATANOPROST(OPTH) 2.5 ML BTL OP SCH (20:33)
[2017-09-15] MEDS: ATORVASTATIN 20 MG TAB PO SCH (20:34)
[2017-09-15] MEDS ORDERED: ALPRAZOLAM 1 MG TAB PO SCH (21:00)
[2017-09-16] VITALS (7 sets, daily range): BP systolic 123–154; BP diastolic 59–73
[2017-09-16] MEDS: METRONIDAZOLE 250 MG TAB PO SCH ×4 (00:12→21:11)
[2017-09-16 06:59] LABS: ALBUMIN 2.1 g/dL (3.5-5.0); ALBUMIN/GLOBULIN RATIO 0.6 (0.8-2.0); ANION GAP 15.1 mmol/L (8-16); CALCIUM 8.5 mg/dL (8.4-10.2); CREATININE, SERUM 4.24 mg/dL (0.72-1.25); MAGNESIUM 1.5 MG/DL (1.3-2.1); POTASSIUM 3.1 mmol/L (3.5-5.1)
[2017-09-16] MEDS: INSULIN REGULAR, HUMAN 100 UNIT/1 ML 3ML VIAL SQ SCH ×4 (07:30→20:28)
[2017-09-16] MEDS: IPRATROPIUM BROMIDE 0.02% 2.5 ML NEB NEB SCH ×3 (07:46→23:20)
[2017-09-16] MEDS: CARVEDILOL 12.5 MG TAB PO SCH ×2 (08:00→16:56)
[2017-09-16] MEDS ORDERED: POTASSIUM CHLORIDE 20MEQ/100ML 200 ML IV ONE (08:30)
[2017-09-16] MEDS: TAMSULOSIN HCL 0.4 MG CAP PO SCH (09:00)
[2017-09-16] MEDS: ASPIRIN 81 MG CHEW TAB PO SCH (09:00)
[2017-09-16] MEDS: CEFEPIME HCL 1 GM VIAL IV SCH (09:00)
[2017-09-16] MEDS: TRIAMCINOLONE ACET 0.1% CREAM 15 GM TUBE TOP SCH ×2 (09:00→16:57)
[2017-09-16] MEDS: ISOSORBIDE DINITRATE 20 MG TAB PO SCH ×3 (09:00→21:10)
[2017-09-16] MEDS: HYDRALAZINE HCL 25 MG TAB PO SCH ×3 (09:00→21:10)
[2017-09-16] MEDS: NIFEDIPINE CR 30 MG TAB PO SCH ×2 (09:00→21:10)
--- NOTE | 2017-09-16 11:56 | Diagnostic Imaging Report ---
PROCEDURE:US CHEST (INCL MEDIASTINUM) COMPARISON:Patients [facility], , US CHEST (INCL MEDIASTINUM), 09/08/2017, 15:08. INDICATIONS:LEFT PLEURAL EFFUSION FINDINGS:Examination shows small bilateral pleural effusions with associated bilateral lower lobe atelectasis. Fluid has simple appearance. CONCLUSION: 1. Small bilateral simple appearing pleural effusions, stable on the left and minimally increased on the right. Fran Hatch M.D. Dictated by: Fran Hatch M.D. on 09/16/2017 at 11:59 Electronically approved by: Fran Hatch M.D. on 09/16/2017 at 11:59
[2017-09-16] MEDS: ACETAMINOPHEN 325 MG TAB PO PRN ×2 (13:00→21:11)
[2017-09-16] MEDS: SODIUM CHLORIDE 0.9% 1000ML 1,000 ML IV SCH (14:00)
[2017-09-16] MEDS ORDERED: MAGNESIUM SULFATE 2GM/50ML 50 ML IV ONE (14:30)
[2017-09-16 14:47] LABS: INR 1.35; PROTHROMBIN TIME 15.7 seconds (11.9-14.5)
[2017-09-16 14:59] LABS: BASOPHILS % 0.3 % (0.0-1.0); EOSINOPHILS # (AUTO) 0.2 (0.0-0.4); EOSINOPHILS % 1.7 % (0.0-6.0); HEMATOCRIT 25.4 % (38.2-49.6); HEMOGLOBIN 8.1 g/dL (14.0-18.0); LYMPHOCYTES # (AUTO) 1.4 (1.0-3.2); LYMPHOCYTES % 11.9 % (18.0-39.1); MEAN CORPUSCULAR HEMOGLOBIN 30.8 pg (28-32); MEAN CORPUSCULAR HGB CONC 31.9 g/dL (31-35); MEAN CORPUSCULAR VOLUME 96.6 fL (81-99); MONOCYTES # (AUTO) 2.3 (0.2-0.8); MONOCYTES % 19.4 % (4.4-11.3); NEUTROPHILS # (AUTO) 7.6 (2.1-6.9); NEUTROPHILS % 64.9 % (38.7-80.0); PLATELET COUNT 103 x10e3/uL (140-360); RED BLOOD COUNT 2.63 x10e6/uL (4.3-5.7); RED CELL DISTRIBUTION WIDTH 18.6 % (11.7-14.4)
[2017-09-16 16:47] LABS: HYPOCHROMASIA MODERATE; LYMPHOCYTES % (MANUAL) 11 % (19-48); MONOCYTES % (MANUAL) 15 % (3.4-9.0); NEUTROPHILS % (MANUAL) 74 % (40-74); PLATELET ESTIMATE SLIGHTLY DECREASED; PLATELET MORPHOLOGY COMMENT NORMAL; RBC MORPHOLOGY COMMENT NORMAL
[2017-09-16] MEDS: ATORVASTATIN 20 MG TAB PO SCH (21:10)
[2017-09-16] MEDS: LATANOPROST(OPTH) 2.5 ML BTL OP SCH (21:10)
[2017-09-16] MEDS: GABAPENTIN 300 MG CAP PO SCH (21:10)
[2017-09-16] MEDS: OXYMETAZOLINE HCL 0.05% NAS 1 SPRAY BTL SCH (21:10)
[2017-09-16] MEDS: ALPRAZOLAM 1 MG TAB PO SCH (21:11)
[2017-09-17 00:37] VITALS: BP 126/58
[2017-09-17 04:00] VITALS: BP 144/67
[2017-09-17] MEDS: SODIUM CHLORIDE 0.9% 1000ML 1,000 ML IV SCH ×3 (04:53→13:36)
[2017-09-17] MEDS: METRONIDAZOLE 250 MG TAB PO SCH ×3 (05:17→21:46)
[2017-09-17 06:44] LABS: ALBUMIN 2.2 g/dL (3.5-5.0); ALBUMIN/GLOBULIN RATIO 0.6 (0.8-2.0); ANION GAP 15.5 mmol/L (8-16); CALCIUM 8.4 mg/dL (8.4-10.2); CREATININE, SERUM 4.2 mg/dL (0.72-1.25); POTASSIUM 3.5 mmol/L (3.5-5.1)
[2017-09-17] MEDS: IPRATROPIUM BROMIDE 0.02% 2.5 ML NEB NEB SCH ×3 (07:04→23:00)
[2017-09-17] MEDS: INSULIN REGULAR, HUMAN 100 UNIT/1 ML 3ML VIAL SQ SCH ×4 (07:30→21:46)
[2017-09-17 08:00] VITALS: BP 151/77
[2017-09-17] MEDS: ISOSORBIDE DINITRATE 20 MG TAB PO SCH ×3 (08:37→21:46)
[2017-09-17] MEDS: NIFEDIPINE CR 30 MG TAB PO SCH (08:37)
[2017-09-17] MEDS: TAMSULOSIN HCL 0.4 MG CAP PO SCH (08:37)
[2017-09-17] MEDS: CEFEPIME HCL 1 GM VIAL IV SCH (08:37)
[2017-09-17] MEDS: CARVEDILOL 12.5 MG TAB PO SCH ×2 (08:37→16:20)
[2017-09-17] MEDS: HYDRALAZINE HCL 25 MG TAB PO SCH ×3 (08:37→21:46)
[2017-09-17] MEDS: TRIAMCINOLONE ACET 0.1% CREAM 15 GM TUBE TOP SCH ×2 (08:37→16:20)
[2017-09-17] MEDS: GABAPENTIN 300 MG CAP PO SCH (08:37)
[2017-09-17] MEDS: OXYMETAZOLINE HCL 0.05% NAS 1 SPRAY BTL SCH ×2 (08:37→21:50)
[2017-09-17 12:00] VITALS: BP_SYST 138; BP_SYST 147; BP_DIAS 65; BP_DIAS 74
[2017-09-17] MEDS ORDERED: LIDOCAINE HCL 2% 30 ML TUBE ONE (14:06)
[2017-09-17] MEDS ORDERED: LIDOCAINE HCL 4% 50 ML BTL ONE (14:06)
[2017-09-17] MEDS ORDERED: EPINEPHRINE HCL INJ 1 MG/ML AMP ONE (14:07)
[2017-09-17 16:00] VITALS: BP 154/76
[2017-09-17] MEDS ORDERED: MIDAZOLAM HCL 2 MG/2 ML VIAL ONE (19:42)
[2017-09-17] MEDS ORDERED: KETAMINE HCL INJ 50 MG/ML 10 ML VIAL ONE (19:42)
--- NOTE | 2017-09-17 19:46 | Operative Report ---
DATE OF PROCEDURE: September 17, 2017 PREPROCEDURE DIAGNOSIS: Hemoptysis. POSTPROCEDURE DIAGNOSIS 1. No endobronchial mass. 2. Normal endobronchial airway. 3. Mild inflammation and redness in the left lower lobe. PATROL DEPUTY SHERIFF: None. ANESTHESIA: MAC. PROCEDURE IN DETAIL: Bronchoscope was advanced through the oral cavity. Upper airway was examined. No active bleeding was seen. Vocal cords were normally moving. Trachea was entered. Sanam was identified. Both lungs were examined until segmental level. No endobronchial lesion was seen. Thin secretions on both sides. No mucopurulence was seen. Mild redness and erythema in the left lower lobe. BAL was done from left lower lobe for Gram stain and culture. COMPLICATIONS: None. Job#: [id number] EV
[2017-09-17 20:00] VITALS: BP 147/68
[2017-09-17] MEDS: ATORVASTATIN 20 MG TAB PO SCH (21:46)
[2017-09-17] MEDS: LATANOPROST(OPTH) 2.5 ML BTL OP SCH (21:46)
[2017-09-17] MEDS: ALPRAZOLAM 1 MG TAB PO SCH (21:46)
[2017-09-18] VITALS (10 sets, daily range): BP systolic 126–175; BP diastolic 60–81
[2017-09-18] MEDS: NIFEDIPINE CR 30 MG TAB PO SCH ×3 (03:30→20:02)
[2017-09-18] MEDS: SODIUM CHLORIDE 0.9% 1000ML 1,000 ML IV SCH (06:00)
[2017-09-18 06:30] LABS: BASOPHILS % 0.3 % (0.0-1.0); EOSINOPHILS # (AUTO) 0.1 (0.0-0.4); HEMATOCRIT 26.7 % (38.2-49.6); HEMOGLOBIN 8.6 g/dL (14.0-18.0); LYMPHOCYTES # (AUTO) 1.2 (1.0-3.2); LYMPHOCYTES % 11.5 % (18.0-39.1); MEAN CORPUSCULAR HEMOGLOBIN 30.6 pg (28-32); MEAN CORPUSCULAR HGB CONC 32.2 g/dL (31-35); MONOCYTES # (AUTO) 2.4 (0.2-0.8); MONOCYTES % 22.3 % (4.4-11.3); NEUTROPHILS # (AUTO) 6.7 (2.1-6.9); NEUTROPHILS % 63.7 % (38.7-80.0); PLATELET COUNT 127 x10e3/uL (140-360); RED BLOOD COUNT 2.81 x10e6/uL (4.3-5.7); RED CELL DISTRIBUTION WIDTH 18.6 % (11.7-14.4)
[2017-09-18] MEDS: METRONIDAZOLE 250 MG TAB PO SCH (06:33)
[2017-09-18] MEDS: IPRATROPIUM BROMIDE 0.02% 2.5 ML NEB NEB SCH ×3 (06:38→18:52)
[2017-09-18 07:05] LABS: ALBUMIN 2.5 g/dL (3.5-5.0); ALBUMIN/GLOBULIN RATIO 0.6 (0.8-2.0); ANION GAP 13.6 mmol/L (8-16); CALCIUM 8.7 mg/dL (8.4-10.2); CREATININE, SERUM 4.11 mg/dL (0.72-1.25); POTASSIUM 3.6 mmol/L (3.5-5.1)
[2017-09-18] MEDS: INSULIN REGULAR, HUMAN 100 UNIT/1 ML 3ML VIAL SQ SCH ×4 (07:30→22:11)
[2017-09-18] MEDS: HYDRALAZINE HCL 25 MG TAB PO SCH ×3 (08:39→20:02)
[2017-09-18] MEDS: CARVEDILOL 12.5 MG TAB PO SCH ×2 (08:39→17:33)
[2017-09-18] MEDS: CEFEPIME HCL 1 GM VIAL IV SCH (08:39)
[2017-09-18] MEDS: OXYMETAZOLINE HCL 0.05% NAS 1 SPRAY BTL SCH ×2 (08:39→19:57)
[2017-09-18] MEDS: TRIAMCINOLONE ACET 0.1% CREAM 15 GM TUBE TOP SCH ×2 (08:40→17:00)
[2017-09-18] MEDS: ASPIRIN 81 MG CHEW TAB PO SCH (08:40)
[2017-09-18] MEDS: TAMSULOSIN HCL 0.4 MG CAP PO SCH (08:40)
[2017-09-18] MEDS: ISOSORBIDE DINITRATE 20 MG TAB PO SCH ×3 (08:40→20:02)
[2017-09-18] MEDS: GABAPENTIN 300 MG CAP PO SCH (08:40)
--- NOTE | 2017-09-18 10:37 | Diagnostic Imaging Report ---
PROCEDURE:CHEST SINGLE (PORTABLE) TECHNIQUE:Portable AP chest INDICATION:Shortness of breath COMPARISON:[facility], CT, CT CHEST WO, 09/13/2017, 16:59. [facility], DX, CHEST 2 VIEWS, 09/11/2017, 10:19. FINDINGS: See conclusion. CONCLUSION: 1. Right internal jugular non-tunneled catheter terminating in the mid SVC. 2. Cardiomegaly with pulmonary edema. Interval progression relative to September 11, 2017. 3. Moderate pleural effusions. 4. Intact skeleton. Dictated by: Gurjit Villeda M.D. on 09/18/2017 at 10:40 Electronically approved by: Gurjit Villeda M.D. on 09/18/2017 at 10:40
[2017-09-18] MEDS ORDERED: FUROSEMIDE INJ 10 MG/ML 4 ML VIAL IV ONE (12:10)
[2017-09-18] MEDS: LATANOPROST(OPTH) 2.5 ML BTL OP SCH (19:57)
[2017-09-18] MEDS: FUROSEMIDE INJ 10 MG/ML 4 ML VIAL IV SCH (19:57)
[2017-09-18] MEDS: ALPRAZOLAM 1 MG TAB PO SCH (20:02)
[2017-09-18] MEDS: ATORVASTATIN 20 MG TAB PO SCH (20:02)
[2017-09-19] VITALS (13 sets, daily range): BP systolic 112–165; BP diastolic 61–80
[2017-09-19 05:14] LABS: BASOPHILS % 0.2 % (0.0-1.0); EOSINOPHILS # (AUTO) 0.1 (0.0-0.4); EOSINOPHILS % 1.3 % (0.0-6.0); HEMATOCRIT 25.8 % (38.2-49.6); HEMOGLOBIN 8.2 g/dL (14.0-18.0); LYMPHOCYTES # (AUTO) 1.6 (1.0-3.2); MEAN CORPUSCULAR HEMOGLOBIN 30.8 pg (28-32); MEAN CORPUSCULAR HGB CONC 31.8 g/dL (31-35); MONOCYTES # (AUTO) 2.3 (0.2-0.8); MONOCYTES % 21.4 % (4.4-11.3); NEUTROPHILS # (AUTO) 6.7 (2.1-6.9); NEUTROPHILS % 61.4 % (38.7-80.0); PLATELET COUNT 154 x10e3/uL (140-360); RED BLOOD COUNT 2.66 x10e6/uL (4.3-5.7); RED CELL DISTRIBUTION WIDTH 19.1 % (11.7-14.4)
[2017-09-19 05:32] LABS: ALBUMIN 2.4 g/dL (3.5-5.0); ALBUMIN/GLOBULIN RATIO 0.6 (0.8-2.0); ANION GAP 12.2 mmol/L (8-16); CALCIUM 8.8 mg/dL (8.4-10.2); CREATININE, SERUM 3.85 mg/dL (0.72-1.25); POTASSIUM 3.2 mmol/L (3.5-5.1)
--- NOTE | 2017-09-19 07:01 | Diagnostic Imaging Report ---
CHEST SINGLE (PORTABLE), 09/19/2017 5:29 AM Technique: CHEST SINGLE (PORTABLE) Comparison: 09/10/2017, CT 09/13/2017 Clinical history: Shortness of breath Findings: See Impression Impression: 1. Lines/Tubes: Stable right IJ central venous catheter over the SVC. 2. Stable layering pleural effusions with associated atelectasis. More consolidative opacities in the left lung, better appreciated on CT. Signed by: Dr Jena Valdivia MD on 09/19/2017 6:58 AM
[2017-09-19] MEDS: IPRATROPIUM BROMIDE 0.02% 2.5 ML NEB NEB SCH ×3 (07:20→23:10)
[2017-09-19] MEDS: INSULIN REGULAR, HUMAN 100 UNIT/1 ML 3ML VIAL SQ SCH ×4 (07:30→20:34)
[2017-09-19] MEDS: FUROSEMIDE INJ 10 MG/ML 4 ML VIAL IV SCH (08:55)
[2017-09-19] MEDS: TRIAMCINOLONE ACET 0.1% CREAM 15 GM TUBE TOP SCH ×2 (08:55→17:05)
[2017-09-19] MEDS: CEFEPIME HCL 1 GM VIAL IV SCH (08:55)
[2017-09-19] MEDS: TAMSULOSIN HCL 0.4 MG CAP PO SCH (08:55)
[2017-09-19] MEDS: CARVEDILOL 12.5 MG TAB PO SCH ×2 (08:55→16:46)
[2017-09-19] MEDS: HYDRALAZINE HCL 25 MG TAB PO SCH ×3 (08:55→20:32)
[2017-09-19] MEDS: GABAPENTIN 300 MG CAP PO SCH (08:55)
[2017-09-19] MEDS: NIFEDIPINE CR 30 MG TAB PO SCH ×2 (08:55→20:32)
[2017-09-19] MEDS: ISOSORBIDE DINITRATE 20 MG TAB PO SCH ×3 (08:55→20:32)
[2017-09-19] MEDS: ASPIRIN 81 MG CHEW TAB PO SCH (08:55)
[2017-09-19] MEDS: OXYMETAZOLINE HCL 0.05% NAS 1 SPRAY BTL SCH (09:26)
[2017-09-19] MEDS ORDERED: POTASSIUM CHLORIDE 10 MEQ TABCR PO SCH ×2 (09:45→10:00)
[2017-09-19] MEDS: METRONIDAZOLE 500 MG TAB PO SCH ×2 (14:24→20:33)
[2017-09-19] MEDS: LATANOPROST(OPTH) 2.5 ML BTL OP SCH (20:29)
[2017-09-19] MEDS: ALPRAZOLAM 1 MG TAB PO SCH (20:32)
[2017-09-19] MEDS: ATORVASTATIN 20 MG TAB PO SCH (20:32)
[2017-09-20] VITALS (9 sets, daily range): BP systolic 129–156; BP diastolic 64–77
[2017-09-20] MEDS: METRONIDAZOLE 500 MG TAB PO SCH ×3 (05:38→23:24)
[2017-09-20 07:20] LABS: BASOPHILS % 0.3 % (0.0-1.0); EOSINOPHILS # (AUTO) 0.2 (0.0-0.4); EOSINOPHILS % 2.6 % (0.0-6.0); HEMATOCRIT 24.7 % (38.2-49.6); HEMOGLOBIN 7.8 g/dL (14.0-18.0); LYMPHOCYTES # (AUTO) 1.6 (1.0-3.2); LYMPHOCYTES % 22.6 % (18.0-39.1); MEAN CORPUSCULAR HEMOGLOBIN 30.7 pg (28-32); MEAN CORPUSCULAR HGB CONC 31.6 g/dL (31-35); MEAN CORPUSCULAR VOLUME 97.2 fL (81-99); MONOCYTES # (AUTO) 1.6 (0.2-0.8); MONOCYTES % 23.5 % (4.4-11.3); NEUTROPHILS # (AUTO) 3.4 (2.1-6.9); NEUTROPHILS % 50.1 % (38.7-80.0); PLATELET COUNT 185 x10e3/uL (140-360); RED BLOOD COUNT 2.54 x10e6/uL (4.3-5.7); RED CELL DISTRIBUTION WIDTH 19.1 % (11.7-14.4)
[2017-09-20] MEDS: IPRATROPIUM BROMIDE 0.02% 2.5 ML NEB NEB SCH ×3 (07:30→19:25)
[2017-09-20 07:49] LABS: ALBUMIN 2.2 g/dL (3.5-5.0); ALBUMIN/GLOBULIN RATIO 0.6 (0.8-2.0); ANION GAP 11.5 mmol/L (8-16); CALCIUM 8.5 mg/dL (8.4-10.2); CREATININE, SERUM 3.68 mg/dL (0.72-1.25); POTASSIUM 3.5 mmol/L (3.5-5.1)
[2017-09-20] MEDS: CEFEPIME HCL 1 GM VIAL IV SCH (08:42)
[2017-09-20] MEDS: ISOSORBIDE DINITRATE 20 MG TAB PO SCH ×3 (08:42→20:52)
[2017-09-20] MEDS: NIFEDIPINE CR 30 MG TAB PO SCH ×2 (08:42→20:52)
[2017-09-20] MEDS: ASPIRIN 81 MG CHEW TAB PO SCH (08:42)
[2017-09-20] MEDS: HYDRALAZINE HCL 25 MG TAB PO SCH ×3 (08:42→23:24)
[2017-09-20] MEDS: FUROSEMIDE 40 MG TAB PO SCH (08:42)
[2017-09-20] MEDS: GABAPENTIN 300 MG CAP PO SCH (08:42)
[2017-09-20] MEDS: TAMSULOSIN HCL 0.4 MG CAP PO SCH (08:42)
[2017-09-20] MEDS: CARVEDILOL 12.5 MG TAB PO SCH ×2 (08:42→16:20)
[2017-09-20] MEDS: INSULIN REGULAR, HUMAN 100 UNIT/1 ML 3ML VIAL SQ SCH ×4 (08:43→20:54)
[2017-09-20] MEDS: TRIAMCINOLONE ACET 0.1% CREAM 15 GM TUBE TOP SCH ×2 (09:13→18:35)
[2017-09-20 09:15] LABS: BAND NEUTROPHILS % (MANUAL) 1 %; EOSINOPHILS % (MANUAL) 3 % (0-7); LYMPHOCYTES % (MANUAL) 22 % (19-48); MONOCYTES % (MANUAL) 19 % (3.4-9.0); MYELOCYTES % (MANUAL) 1 % (0-0); NEUTROPHILS % (MANUAL) 54 % (40-74); PLATELET ESTIMATE ADEQUATE; PLATELET MORPHOLOGY COMMENT NORMAL; RBC MORPHOLOGY COMMENT NORMAL
[2017-09-20] MEDS: ALPRAZOLAM 1 MG TAB PO SCH (20:52)
[2017-09-20] MEDS: ATORVASTATIN 20 MG TAB PO SCH (20:52)
[2017-09-20] MEDS: LATANOPROST(OPTH) 2.5 ML BTL OP SCH (20:52)
[2017-09-21] VITALS (9 sets, daily range): BP systolic 136–155; BP diastolic 67–79
[2017-09-21] MEDS: METRONIDAZOLE 500 MG TAB PO SCH ×3 (05:48→22:23)
[2017-09-21] MEDS: INSULIN REGULAR, HUMAN 100 UNIT/1 ML 3ML VIAL SQ SCH ×4 (07:30→22:23)
[2017-09-21 07:36] LABS: BASOPHILS % 0.4 % (0.0-1.0); EOSINOPHILS # (AUTO) 0.2 (0.0-0.4); EOSINOPHILS % 2.3 % (0.0-6.0); HEMATOCRIT 23.8 % (38.2-49.6); HEMOGLOBIN 7.6 g/dL (14.0-18.0); LYMPHOCYTES # (AUTO) 1.8 (1.0-3.2); LYMPHOCYTES % 23.3 % (18.0-39.1); MEAN CORPUSCULAR HEMOGLOBIN 30.9 pg (28-32); MEAN CORPUSCULAR HGB CONC 31.9 g/dL (31-35); MEAN CORPUSCULAR VOLUME 96.7 fL (81-99); MONOCYTES # (AUTO) 1.6 (0.2-0.8); MONOCYTES % 20.9 % (4.4-11.3); NEUTROPHILS # (AUTO) 4.2 (2.1-6.9); NEUTROPHILS % 52.7 % (38.7-80.0); PLATELET COUNT 197 x10e3/uL (140-360); RED BLOOD COUNT 2.46 x10e6/uL (4.3-5.7); RED CELL DISTRIBUTION WIDTH 18.8 % (11.7-14.4)
[2017-09-21] MEDS: IPRATROPIUM BROMIDE 0.02% 2.5 ML NEB NEB SCH ×3 (07:40→15:00)
[2017-09-21 07:59] LABS: ALBUMIN 2.2 g/dL (3.5-5.0); ALBUMIN/GLOBULIN RATIO 0.6 (0.8-2.0); ANION GAP 13.4 mmol/L (8-16); CALCIUM 8.5 mg/dL (8.4-10.2); CREATININE, SERUM 3.71 mg/dL (0.72-1.25); POTASSIUM 3.4 mmol/L (3.5-5.1)
[2017-09-21] MEDS: ASPIRIN 81 MG CHEW TAB PO SCH (08:46)
[2017-09-21] MEDS: TAMSULOSIN HCL 0.4 MG CAP PO SCH (08:46)
[2017-09-21] MEDS: CEFEPIME HCL 1 GM VIAL IV SCH (08:46)
[2017-09-21] MEDS: ISOSORBIDE DINITRATE 20 MG TAB PO SCH ×3 (08:46→22:22)
[2017-09-21] MEDS: HYDRALAZINE HCL 25 MG TAB PO SCH ×3 (08:46→22:21)
[2017-09-21] MEDS: GABAPENTIN 300 MG CAP PO SCH (08:46)
[2017-09-21] MEDS: CARVEDILOL 12.5 MG TAB PO SCH ×2 (08:46→17:38)
[2017-09-21] MEDS: FUROSEMIDE 40 MG TAB PO SCH (08:46)
[2017-09-21] MEDS: NIFEDIPINE CR 30 MG TAB PO SCH ×2 (08:47→22:22)
[2017-09-21] MEDS: TRIAMCINOLONE ACET 0.1% CREAM 15 GM TUBE TOP SCH ×2 (08:47→17:00)
[2017-09-21 10:37] LABS: BAND NEUTROPHILS % (MANUAL) 1 %; LYMPHOCYTES % (MANUAL) 25 % (19-48); METAMYELOCYTES % (MANUAL) 1 % (0-0); MONOCYTES % (MANUAL) 16 % (3.4-9.0); NEUTROPHILS % (MANUAL) 57 % (40-74); PLATELET ESTIMATE ADEQUATE; PLATELET MORPHOLOGY COMMENT NORMAL; RBC MORPHOLOGY COMMENT NORMAL
[2017-09-21] MEDS ORDERED: POTASSIUM CHLORIDE 20 MEQ TAB CR PO NR (12:31)
[2017-09-21] MEDS: LATANOPROST(OPTH) 2.5 ML BTL OP SCH (22:21)
[2017-09-21] MEDS: ALPRAZOLAM 1 MG TAB PO SCH (22:22)
[2017-09-21] MEDS: ATORVASTATIN 20 MG TAB PO SCH (22:22)
[2017-09-22] VITALS (7 sets, daily range): BP systolic 140–166; BP diastolic 70–77
[2017-09-22] MEDS: METRONIDAZOLE 500 MG TAB PO SCH ×3 (05:23→22:00)
[2017-09-22 05:31] LABS: BASOPHILS % 0.4 % (0.0-1.0); EOSINOPHILS # (AUTO) 0.2 (0.0-0.4); EOSINOPHILS % 2.5 % (0.0-6.0); HEMATOCRIT 24.3 % (38.2-49.6); HEMOGLOBIN 7.7 g/dL (14.0-18.0); LYMPHOCYTES # (AUTO) 2.1 (1.0-3.2); MEAN CORPUSCULAR HEMOGLOBIN 30.6 pg (28-32); MEAN CORPUSCULAR HGB CONC 31.7 g/dL (31-35); MEAN CORPUSCULAR VOLUME 96.4 fL (81-99); MONOCYTES # (AUTO) 1.4 (0.2-0.8); MONOCYTES % 17.7 % (4.4-11.3); NEUTROPHILS # (AUTO) 4.2 (2.1-6.9); NEUTROPHILS % 52.9 % (38.7-80.0); PLATELET COUNT 228 x10e3/uL (140-360); RED BLOOD COUNT 2.52 x10e6/uL (4.3-5.7); RED CELL DISTRIBUTION WIDTH 19.1 % (11.7-14.4)
[2017-09-22 05:50] LABS: ANION GAP 12.5 mmol/L (8-16); CALCIUM 8.5 mg/dL (8.4-10.2); CREATININE, SERUM 3.4 mg/dL (0.72-1.25); MAGNESIUM 1.3 MG/DL (1.3-2.1); POTASSIUM 3.5 mmol/L (3.5-5.1)
[2017-09-22 07:17] LABS: EOSINOPHILS % (MANUAL) 1 % (0-7); LYMPHOCYTES % (MANUAL) 18 % (19-48); MONOCYTES % (MANUAL) 22 % (3.4-9.0); NEUTROPHILS % (MANUAL) 58 % (40-74)
[2017-09-22 07:18] LABS: ANISOCYTOSIS SLIGHT; HYPOCHROMASIA MODERATE; PLATELET ESTIMATE ADEQUATE; PLATELET MORPHOLOGY COMMENT FEW GIANT; RBC MORPHOLOGY COMMENT NORMAL
[2017-09-22] MEDS: INSULIN REGULAR, HUMAN 100 UNIT/1 ML 3ML VIAL SQ SCH ×3 (07:30→21:00)
[2017-09-22] MEDS: IPRATROPIUM BROMIDE 0.02% 2.5 ML NEB NEB SCH ×3 (07:31→21:30)
[2017-09-22] MEDS: ASPIRIN 81 MG CHEW TAB PO SCH ×2 (09:00→09:07)
[2017-09-22] MEDS: GABAPENTIN 300 MG CAP PO SCH (09:06)
[2017-09-22] MEDS: FUROSEMIDE 40 MG TAB PO SCH (09:06)
[2017-09-22] MEDS: TAMSULOSIN HCL 0.4 MG CAP PO SCH (09:07)
[2017-09-22] MEDS: HYDRALAZINE HCL 25 MG TAB PO SCH ×3 (09:10→21:00)
[2017-09-22] MEDS: NIFEDIPINE CR 30 MG TAB PO SCH ×2 (09:11→21:00)
[2017-09-22] MEDS: ISOSORBIDE DINITRATE 20 MG TAB PO SCH ×3 (09:11→21:00)
[2017-09-22] MEDS: CARVEDILOL 12.5 MG TAB PO SCH ×2 (09:14→17:44)
--- NOTE | 2017-09-22 11:10 | Diagnostic Imaging Report ---
PROCEDURE:CHEST 2 VIEWS TECHNIQUE:PA and lateral chest INDICATION:Pneumonia COMPARISON:Patients [facility], DX, CHEST SINGLE (PORTABLE), 09/19/2017, 6:40. FINDINGS: The right internal jugular non-tunneled dialysis catheter. Large cardiac silhouette and prominent central vasculature. Trace right pleural effusion. Moderate left pleural effusion. Intact skeleton. CONCLUSION: Moderate left and small right pleural effusions with associated atelectasis. Cardiomegaly with central vascular congestion improved relative to September 19, 2017. Dictated by: Gurjit Villeda M.D. on 09/22/2017 at 11:13 Electronically approved by: Gurjit Villeda M.D. on 09/22/2017 at 11:13
[2017-09-22] MEDS: TRIAMCINOLONE ACET 0.1% CREAM 15 GM TUBE TOP SCH ×2 (12:49→17:44)
[2017-09-22] MEDS: LATANOPROST(OPTH) 2.5 ML BTL OP SCH (21:00)
[2017-09-22] MEDS: ALPRAZOLAM 1 MG TAB PO SCH (21:00)
[2017-09-22] MEDS: ATORVASTATIN 20 MG TAB PO SCH (21:00)
[2017-09-23] VITALS: BP 153/72
[2017-09-23 04:00] VITALS: BP 143/65
[2017-09-23] MEDS: METRONIDAZOLE 500 MG TAB PO SCH ×3 (06:00→22:16)
[2017-09-23] MEDS: IPRATROPIUM BROMIDE 0.02% 2.5 ML NEB NEB SCH ×2 (06:46→22:30)
[2017-09-23] MEDS: INSULIN REGULAR, HUMAN 100 UNIT/1 ML 3ML VIAL SQ SCH ×4 (07:30→21:00)
[2017-09-23 08:10] VITALS: BP 187/78
[2017-09-23] MEDS: CARVEDILOL 12.5 MG TAB PO SCH ×2 (08:41→16:00)
[2017-09-23] MEDS: TAMSULOSIN HCL 0.4 MG CAP PO SCH (08:41)
[2017-09-23] MEDS: HYDRALAZINE HCL 25 MG TAB PO SCH ×2 (08:41→16:00)
[2017-09-23] MEDS: ASPIRIN 81 MG CHEW TAB PO SCH (08:41)
[2017-09-23] MEDS: ISOSORBIDE DINITRATE 20 MG TAB PO SCH ×2 (08:42→16:00)
[2017-09-23] MEDS: NIFEDIPINE CR 30 MG TAB PO SCH ×2 (08:42→21:00)
[2017-09-23] MEDS: FUROSEMIDE 40 MG TAB PO SCH (08:42)
[2017-09-23] MEDS: GABAPENTIN 300 MG CAP PO SCH (08:42)
[2017-09-23] MEDS: TRIAMCINOLONE ACET 0.1% CREAM 15 GM TUBE TOP SCH ×2 (10:00→16:57)
[2017-09-23 10:10] VITALS: BP 140/66
[2017-09-23] MEDS ORDERED: POTASSIUM CHLORIDE 20 MEQ TAB CR PO STA (12:29)
[2017-09-23 16:01] VITALS: BP 150/69
[2017-09-23] MEDS: ALPRAZOLAM 1 MG TAB PO SCH (20:58)
[2017-09-23] MEDS: LATANOPROST(OPTH) 2.5 ML BTL OP SCH (21:00)
[2017-09-23] MEDS: ATORVASTATIN 20 MG TAB PO SCH (21:00)
[2017-09-24] MEDS: HYDRALAZINE HCL 25 MG TAB PO SCH ×3 (00:05→15:21)
[2017-09-24] MEDS: ISOSORBIDE DINITRATE 20 MG TAB PO SCH ×3 (00:06→15:21)
[2017-09-24 04:39] VITALS: BP 140/65
[2017-09-24] MEDS: METRONIDAZOLE 500 MG TAB PO SCH ×2 (06:00→13:56)
[2017-09-24 06:25] LABS: ALBUMIN 2.4 g/dL (3.5-5.0); ALBUMIN/GLOBULIN RATIO 0.6 (0.8-2.0); ANION GAP 10.7 mmol/L (8-16); CALCIUM 8.8 mg/dL (8.4-10.2); CREATININE, SERUM 2.93 mg/dL (0.72-1.25); POTASSIUM 3.7 mmol/L (3.5-5.1)
[2017-09-24] MEDS: INSULIN REGULAR, HUMAN 100 UNIT/1 ML 3ML VIAL SQ SCH ×2 (07:30→12:13)
[2017-09-24] MEDS: IPRATROPIUM BROMIDE 0.02% 2.5 ML NEB NEB SCH ×2 (07:40→15:00)
[2017-09-24 08:24] VITALS: BP 158/71
[2017-09-24] MEDS: CARVEDILOL 12.5 MG TAB PO SCH ×2 (08:57→16:39)
[2017-09-24] MEDS: GABAPENTIN 300 MG CAP PO SCH (08:58)
[2017-09-24] MEDS: FUROSEMIDE 40 MG TAB PO SCH (08:58)
[2017-09-24] MEDS: ASPIRIN 81 MG CHEW TAB PO SCH (08:58)
[2017-09-24] MEDS: TAMSULOSIN HCL 0.4 MG CAP PO SCH (08:58)
[2017-09-24] MEDS: TRIAMCINOLONE ACET 0.1% CREAM 15 GM TUBE TOP SCH (08:58)
[2017-09-24] MEDS: NIFEDIPINE CR 30 MG TAB PO SCH (08:58)
[2017-09-24 11:04] VITALS: BP 158/71
[2017-09-24 12:43] VITALS: BP 149/68
[2017-09-24] MEDS ORDERED: DEXTROSE 5% 1,000 ML IV ONE (14:15)
[2017-09-24] MEDS ORDERED: XANAX0.25 MG PO (15:41)
[2017-09-24] MEDS ORDERED: LIPITOR20 MG PO (15:51)
[2017-09-24] MEDS ORDERED: COREG12.5 MG PO (15:52)
[2017-09-24] MEDS ORDERED: FUROSEMIDE40 MG PO (15:53)
[2017-09-24] MEDS ORDERED: GABAPENTIN300 MG PO (15:54)
[2017-09-24] MEDS ORDERED: HYDRALAZINE HCL10 MG PO (15:54)
[2017-09-24] MEDS ORDERED: ISORDIL40 MG PO (15:55)
[2017-09-24] MEDS ORDERED: XALATAN2.5 ML IO (15:58)
[2017-09-24] MEDS ORDERED: PROCARDIA XL30 MG (16:00)
[2017-09-24 16:06] VITALS: BP 153/72
[2017-09-24] MEDS ORDERED: [UNRECOGNIZED DRUG - OTHER] (16:08)
--- NOTE | 2017-09-24 16:20 | Discharge Summary ---
PRIMARY CARE DOCTOR: Dr. Nagi Noland with [facility]. FINAL DIAGNOSIS: Multifocal pneumonia. SECONDARY DIAGNOSES 1. Acute renal failure due to acute tubular necrosis briefly on dialysis, resolving. 2. 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 3. Uncontrolled hypertension, better. 4. Chronic blood loss anemia status post 2 units of packed red blood cells. 5. Multiple myeloma. Last chemotherapy was about 4 weeks ago. 6. Previous splenectomy. CONSULTANTS 1. Dr. Arreguin, ID. 2. Dr. Tracey, nephrology. 3. Dr. Perez, application systems engineer. HISTORY: Per H and P. HOSPITAL COURSE: Patient was admitted, was started on broad-spectrum IV antibiotics. Very slowly he improved however patient went into ATN with acute renal failure. Briefly patient was on hemodialysis. Subsequently he began to improve. Patient also had acute respiratory failure requiring BiPAP briefly. Currently his creatinine is pretty much back to his baseline at 2.93. Patient is on maximum dosage of hydralazine, Isordil, Coreg and nifedipine extended release for his uncontrolled hypertension. Patient will go home today with home physical therapy. I have updated his primary care doctor about this hospitalization. Patient had some hemoptysis which has resolved. Bronchoscopy was unremarkable. Patient was seen and examined today. It took 35 minutes total to discharge this patient today. CONDITION ON DISCHARGE: Improved. DISCHARGE MEDICATIONS: See medication reconciliation form. SHANE FERNANDO M.D. Job#: [id number] DG cc: MD KARSTEN FIELDS
== END 2017-09-24 16:57 | disposition home health service (06) | DRG 853 ==
LOC: ER 20:11 → MED/SURG3 09-05 02:19 → ICU 09-06 13:11 → MED/SURG2 09-10 19:55 → ICU 09-18 15:02 → IMCU 09-19 07:30 → MED/SURG2 09-22 17:54
PROVIDERS: ADMIT Internal Medicine; ATTEND Internal Medicine
PROC: 02HV33Z Insertion of Infusion Device into Superior Vena Cava, Percutaneous Approach (ICD-10-PCS; principal; 2017-09-08)
PROC: 5A1D70Z Performance of Urinary Filtration, Intermittent, Less than 6 Hours Per Day (ICD-10-PCS; 2017-09-08)
PROC: 5A1D70Z Performance of Urinary Filtration, Intermittent, Less than 6 Hours Per Day (ICD-10-PCS; 2017-09-09)
PROC: 30233N1 Transfusion of Nonautologous Red Blood Cells into Peripheral Vein, Percutaneous Approach (ICD-10-PCS; 2017-09-09)
PROC: 5A1D70Z Performance of Urinary Filtration, Intermittent, Less than 6 Hours Per Day (ICD-10-PCS; 2017-09-10)
PROC: 5A1D70Z Performance of Urinary Filtration, Intermittent, Less than 6 Hours Per Day (ICD-10-PCS; 2017-09-15)
PROC: 0B9J8ZX Drainage of Left Lower Lung Lobe, Via Natural or Artificial Opening Endoscopic, Diagnostic (ICD-10-PCS; 2017-09-17)
PROC: 5A09357 Assistance with Respiratory Ventilation, Less than 24 Consecutive Hours, Continuous Positive Airway Pressure (ICD-10-PCS; 2017-09-18)
DX: A41.9 Sepsis, unspecified organism (principal); J15.9 Unspecified bacterial pneumonia; N17.0 Acute kidney failure with tubular necrosis; B37.1 Pulmonary candidiasis; J96.00 Acute respiratory failure, unspecified whether with hypoxia or hypercapnia; R04.2 Hemoptysis; C90.00 Multiple myeloma not having achieved remission; E87.2 Acidosis; J90 Pleural effusion, not elsewhere classified; E87.0 Hyperosmolality and hypernatremia; R65.20 Severe sepsis without septic shock; E11.65 Type 2 diabetes mellitus with hyperglycemia; F41.9 Anxiety disorder, unspecified; E78.5 Hyperlipidemia, unspecified; Z85.46 Personal history of malignant neoplasm of prostate; Z85.830 Personal history of malignant neoplasm of bone; Z83.3 Family history of diabetes mellitus; Z82.49 Family history of ischemic heart disease and other diseases of the circulatory system; E11.22 Type 2 diabetes mellitus with diabetic chronic kidney disease; I12.9 Hypertensive chronic kidney disease with stage 1 through stage 4 chronic kidney disease, or unspecified chronic kidney disease; N18.3 Chronic kidney disease, stage 3 (moderate); D64.9 Anemia, unspecified; Z87.891 Personal history of nicotine dependence; R53.81 Other malaise; R19.7 Diarrhea, unspecified; D50.0 Iron deficiency anemia secondary to blood loss (chronic); E87.6 Hypokalemia; E11.42 Type 2 diabetes mellitus with diabetic polyneuropathy; D69.6 Thrombocytopenia, unspecified; E87.70 Fluid overload, unspecified; Z90.81 Acquired absence of spleen
CPT/HCPCS: 31623; 36415; 36556; 71045; 71046; 71250; 74176; 74470; 76604; 76770; 76937; 80048; 80053; 80076; 81001; 82248; 82270; 82550; 82553; 82570; 82805; 82948; 83605; 83735; 84100; 84300; 84484; 85025; 85610; 85730; 86021; 86039; 86200; 86431; 86704; 86706; 86850; 86900; 86920; 87040; 87070; 87086; 87205; 87335; 87493; 90962; 94640; 94660; 94667; 96361; 96366; 96367; 96372; 96374; 97139; 99284; J0171; J0360; J0456; J0692; J0696; J1644; J1940; J2001; J2020; J2250; J3370; J3480; J7030; J7050; J7070; P9016